=== PATIENT | male | born 1960 | race Caucasian/White ===

== ENCOUNTER 2017-01-30 17:56 | Emergency (ER) | payer OTHER ==
[~2017-01-30] VITALS: Ht 177.8 cm; Wt 81.6 kg
[~2017-01-30 17:56] MED LIST: ABILIFY5 M1 PO; DOXEPIN HCL50 MG PO; ESCITALOPRAM OX10 MG PO; HYDROXYZINE HCL50 M1 PO; HYDROXYZINE PAM50 M1 PO; MEDROL4 M2 PO; MIRTAZAPINE15 MG PO; NEXIUM 40MG40 MG PO; NICODERM C21 MG/24 H TOP; NICODERM C7 MG/24 HR TOP; NORCO 325 MG-51 TAB PO; PRILOSEC 20MG C20 MG PO; TRIAMCINOLONE A15 G4 TOP; ZOFRAN4 M1 PO; ZOFRAN4 MG PO
[2017-01-30 18:21] VITALS: BP 103/71
== END 2017-01-30 19:24 | disposition admitted as inpatient to this hospital (09) ==
LOC: ERH 17:56
DX: Z53.21 Procedure and treatment not carried out due to patient leaving prior to being seen by health care provider (principal)

== ENCOUNTER 2017-02-12 15:20 | Emergency (ER) | payer OTHER ==
[~2017-02-12] VITALS: Ht 177.8 cm; Wt 81.6 kg
[2017-02-12] MEDS ORDERED: NEXIUM40 M1 PO (15:24)
[2017-02-12] MEDS ORDERED: AMOXICILLIN500 M2 PO (15:25)
[2017-02-12] MEDS ORDERED: TAMSULOSIN HCL0.4 M1 PO (15:25)
[2017-02-12] MEDS ORDERED: CLARITHROMYCIN500 M1 PO (15:26)
[2017-02-12 16:19] LABS: ABSOLUTE BASOPHIL COUNT 0 /CUMM (0.0-0.2); ABSOLUTE EOSINOPHIL COUNT 0.1 /CUMM (0.0-0.7); ABSOLUTE GRANULOCYTE CT 3.9 /CUMM (1.4-6.5); ABSOLUTE LYMPH COUNT 2.1 /CUMM (1.2-3.4); ABSOLUTE MONOCYTE COUNT 0.5 /CUMM (0.10-0.60); BASOPHIL % 0.7 % (0.0-2.0); EOSINOPHIL % 1.9 % (0-5); GRANULOCYTE % 57.7 % (42.2-75.2); HEMATOCRIT 52.1 % (42-52); MEAN CORPUSCULAR HGB 34.9 PG (27.0-31.0); MEAN CORPUSCULAR HGB CONC 34.1 G/DL (33.0-37.0); MEAN CORPUSCULAR VOLUME 102.3 FL (80.0-94.0); MEAN PLATELET VOLUME 8.6 FL (7.4-10.4); PLATELET COUNT 158 /CUMM (130-400); RBC DISTRIBUTION WIDTH 13.6 % (11.5-14.5); RED BLOOD CELL CT 5.09 /CUMM (4.70-6.10); WHITE BLOOD CELL COUNT 6.8 /CUMM (4.8-10.8)
--- NOTE | 2017-02-12 16:41 | ED PSYCHIATRIC COMPLAINT ---
History of Present Illness General Chief Complaint: Psychiatric Related Complaint Stated Complaint: SI/?HI Source: patient Exam Limitations: no limitations Allergies Coded Allergies: NO KNOWN ALLERGIES (01/30/17) Reconcile Medications Amoxicillin 500 MG CAPSULE 2 CAP PO BID ANTIBIOTIC, INFECTION (Reported) Aripiprazole (Abilify) 5 MG TABLET 1 TAB PO DAILY MENTAL HEALTH (Reported) Clarithromycin 500 MG TABLET 1 TAB PO BID ANTIBIOTIC, INFECTION (Reported) Doxepin HCl 50 MG CAPSULE 1-2 CAP PO QPM PRN SLEEP (Reported) Escitalopram Oxalate 10 MG TABLET 1 TAB PO DAILY MENTAL HEALTH (Reported) Esomeprazole (Nexium) 40 MG CAPSULE.DR 1 CAP PO DAILY GI (Reported) Hydroxyzine Pamoate 50 MG CAPSULE 1 CAP PO BID ANXIETY (Reported) Tamsulosin HCl 0.4 MG CAP.ER.24H 1 CAP PO DAILY PROSTATE (Reported) Triage Note: PT BIBA FROM HOME FOR COMPLANTS OF DEPRESSION. PT STATED HE HAS BEEN OF DEPRESSION MEDS (LEXAPRO/ABILIFY) FOR APPROX 2-3 WEEKS. PT TEARFUL AND "REQUESTING HELP" FOR HIS "DEPRESSION AND ANGER". PT DENIED SI/HI. PT ADMITTED TO DRINKING FOUR BEERS AND TWO SHOTS OF ALCOHOL. DENIED ILLICIT DRUG USE. PT ALSO REQUESTED EVALUATION OF SCIATICA. SECURITY AT BEDSIDE FOR WANDING. PT CHANGED INTO PAPER SCRUBS. Triage Nurses Notes Reviewed? yes HPI: This patient is a 56-year-old male with a past medical history including alcohol dependence, pancreatitis, hepatitis C who presented to the emergency department today for evaluation of depression. The patient reported that he has a lot of medical problems and has been feeling very depressed and overwhelmed. He denied any suicidal ideation. He did report that he does sometimes think about taking his depression out on his . He reported, "not physically." The patient reported that he drinks approximately every other day. Today he had 4 beers and 2 shots. The patient denied any illicit drug use. He denied any chest pain, difficulty breathing, or fevers. He reported that he has withdrawn from alcohol before, but denied any withdrawal seizures. (HUGO TILLMAN,SAAD) Vital Signs & Intake/Output Vital Signs & Intake/Output Vital Signs Date Time Temp Pulse Resp B/P Pulse O2 O2 Flow FiO2 Ox Delivery Rate 02/12 2132 98.2 98 18 126/90 96 Room Air 02/12 1800 98.1 98 18 124/90 95 Room Air ED Intake and Output 02/13 0000 02/12 1200 Intake Total Output Total Balance Patient 180 lb Weight Past History Travel History Traveled to [place] past 21 day No Medical History Any Pertinent Medical History? 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 No (SAAD ARIAS PA-C) Review of Systems Review of Systems Constitutional: Reports: no symptoms. EENTM: Reports: no symptoms. Respiratory: Reports: no symptoms. Cardiovascular: Reports: no symptoms. GI: Reports: see HPI. Genitourinary: Reports: no symptoms. Musculoskeletal: Reports: no symptoms. Skin: Reports: no symptoms. Neurological/Psychological: Reports: see HPI. All Other Systems: Reviewed and Negative (SAAD ARIAS PA-C) Physical Exam Physical Exam General Appearance: well developed/nourished, no apparent distress, alert, awake Neurological/Psychiatric: no motor/sensory deficits, awake, alert, calm, shredded filler cigar maker machine II- XII nml as tested, depressed affect, oriented x 3 Comments: Well-developed well-nourished person in no acute distress HEENT: Normal EENT exam, normocephalic, moist mucous membranes Pupils equally round and reactive to light. Neck: Supple, no lymphadenopathy Back: Normal gait Cardiovascular: Regular rate and rhythm with no murmurs, rubs, or gallops Respiratory: No respiratory distress. Speaking in full sentences Extremity: Normal and equal pulses. Neuro: Alert oriented x3, cranial nerves II through XII grossly intact. Skin: No appreciable rash on exposed skin, skin is warm and dry. Psych: Mood and affect is depressed SAD PERSONS Done? patient not suicidal (SAAD ARIAS PA-C) Progress Differential Diagnosis: dementia, drug intoxication, drug overdose, drug withdrawal, electrolyte abnormality, encephalitis, alcohol intoxication, alcohol withdrawal, major depressive disorder, generalized anxiety disorder Plan of Care: Orders Procedure Date/time Status CIWA 02/12 1635 Active Continuous Observation Monitor 02/12 1535 Active URINE DRUGS OF ABUSE 02/12 1535 Complete ETHANOL 02/12 1535 Complete COMPREHENSIVE METABOLIC PANEL 02/12 153 Complete CBC WITHOUT DIFFERENTIAL 02/12 153 Complete Laboratory Tests 02/12/17 1611: Anion Gap 9, Estimated GFR > 60, BUN/Creatinine Ratio 7.8, Glucose 98, Calcium 9.9, Total Bilirubin 0.6, AST 95 H, ALT 97 H, Alkaline Phosphatase 61, Total Protein 8.2, Albumin 4.3, Globulin 3.9, Albumin/Globulin Ratio 1.1, CBC w Diff NO MAN DIFF REQ, RBC 5.09, MCV 102.3 H, MCH 34.9 H, RDW 13.6, MPV 8.6, Gran % 57.7, Lymphocytes % 31.8, Monocytes % 7.9, Eosinophils % 1.9, Basophils % 0.7, Absolute Granulocytes 3.9, Absolute Lymphocytes 2.1, Absolute Monocytes 0.5, Absolute Eosinophils 0.1, Absolute Basophils 0, PUBS MCHC 34.1, Serum Alcohol 185.0 02/12/17 1546: Urine Opiates Screen < 100.00, Methadone Screen 41, Barbiturate Screen < 60, Ur Phencyclidine Scrn < 6.00, Amphetamines Screen 107, U Benzodiazepines Scrn < 85, Urine Cocaine Screen < 50, Urine Cannabis Screen 38.90 Comments: 02/12/2017 9:12:11 PM: This patient is requesting to go home because he wants to go to this appointment with his specialist at [facility] tomorrow. He is stating that is he not suicidal. Patient breathalyzed and is under the legal limit. Patient is walking with a steady gait and is alert, oriented, and capable of making medical decisions. Crisis team memeber saw and evaluated this patient. Gave him resources to follow-up for his depression. (SAAD ARIAS PA-C) Departure Departure Disposition: HOME OR SELF CARE Condition: Stable Clinical Impression Primary Impression: Depressed Qualifiers: Depression Type: unspecified Qualified Code: F32.9 - Major depressive disorder, single episode, unspecified Referrals: ALFIE COSTA APRN (PCP/Family) Additional Instructions: Please follow-up with your previously scheduled appointment at [facility] tomorrow. Follow-up with the outpatient resources provided to you as needed. Return for any worsening symptoms or concerns. Departure Forms: Customer Survey General Discharge Information (SAAD ARIAS PA-C) PA/AERIAL TRAM OPERATOR Co-Sign Statement Statement: ED Attending supervision documentation- [] I saw and evaluated the patient. I have also reviewed all the pertinent lab results and diagnostic results. I agree with the findings and the plan of care as documented in the PA's/AERIAL TRAM OPERATOR's documentation. [X] I have reviewed the ED Record and agree with the PA's/AERIAL TRAM OPERATOR's documentation. [] Additions or exceptions (if any) to the PAs/AERIAL TRAM OPERATOR's note and plan are summarized below: [] (MOLLY CHRISTIANSON,GORGE) (MOLLY CHRISTIANSON,GORGE)
[2017-02-12 21:32] VITALS: BP 126/90
== END 2017-02-12 21:33 ==
LOC: ERH 15:20
PROVIDERS: Physician Assistant
DX: F32.9 Major depressive disorder, single episode, unspecified (principal); F10.10 Alcohol abuse, uncomplicated
CPT/HCPCS: 80307; G0480

== ENCOUNTER 2018-01-02 21:19 | Inpatient (IN) | payer OTHER ==
[~2018-01-02] VITALS: Ht 177.8 cm; Wt 74.8 kg
[~2018-01-02 21:19] MED LIST changes: +ABILIFY10 M1 PO; +AMOXICILLIN500 M2 PO; +ATIVAN0.5 M1 PO; +ATIVAN1 M1 PO; +CLARITHROMYCIN500 M1 PO; +FOLIC ACID1 M1 PO; +GABAPENTIN400 M2 PO; +NEXIUM40 M1 PO; +NICOTINE PATCH1 EAC3 TOP; +ONE DAILY MULT1 EAC2 PO; +PRAZOSIN HCL2 M1 PO; +SYNTHROID50 MCG PO; +TAMSULOSIN HCL0.4 M1 PO; +VITAMIN B-1100 MG PO
[2018-01-02 22:38] LABS: ABSOLUTE BASOPHIL COUNT 0.1 /CUMM (0.0-0.2); ABSOLUTE EOSINOPHIL COUNT 0 /CUMM (0.0-0.7); ABSOLUTE GRANULOCYTE CT 8.2 /CUMM (1.4-6.5); ABSOLUTE LYMPH COUNT 2.6 /CUMM (1.2-3.4); ABSOLUTE MONOCYTE COUNT 0.9 /CUMM (0.10-0.60); BASOPHIL % 1.2 % (0.0-2.0); EOSINOPHIL % 0.1 % (0-5); HEMATOCRIT 49.5 % (42-52); MEAN CORPUSCULAR HGB 33.4 PG (27.0-31.0); MEAN CORPUSCULAR VOLUME 98.3 FL (80.0-94.0); MEAN PLATELET VOLUME 8.7 FL (7.4-10.4); PLATELET COUNT 182 /CUMM (130-400); RBC DISTRIBUTION WIDTH 13.2 % (11.5-14.5); RED BLOOD CELL CT 5.04 /CUMM (4.70-6.10); WHITE BLOOD CELL COUNT 11.9 /CUMM (4.8-10.8)
[2018-01-02 22:39] LABS: GRANULOCYTE % 69.2 % (42.2-75.2)
--- NOTE | 2018-01-02 23:18 | ED PSYCHIATRIC COMPLAINT ---
See Addendum History of Present Illness General Chief Complaint: Psychiatric Related Complaint Stated Complaint: BIBA WITH A POSIVTIVE SI Source: patient Exam Limitations: no limitations Vital Signs & Intake/Output Vital Signs & Intake/Output Vital Signs Date Time Temp Pulse Resp B/P B/P Pulse O2 O2 Flow FiO2 Mean Ox Delivery Rate 01/05 2218 98.3 57 16 127/78 97 01/05 2200 98.3 57 16 127/78 01/05 1958 55 20 132/80 95 Room Air 01/05 1606 98.2 57 20 127/71 96 Room Air 01/05 0929 97.6 80 18 143/92 98 Room Air 01/05 0547 97.0 92 18 109/54 97 Room Air 01/05 0226 99.3 44 18 92/52 94 Room Air Allergies Coded Allergies: NO KNOWN ALLERGIES (01/30/17) Triage Note: SEE NURSES NOTES Triage Nurses Notes Reviewed? yes HPI: Patient presents for evaluation of suicide ideation. He states he just [facility] and he states he would have committed suicide in [facility] if possible. He states he is still suicidal and was found on his way to the train tracks. Patient admits to heavy alcohol use today but denies any associated drugs. He states that there has been a lot of "crazy stuff" going on. When notified of the abrasion of the nose patient states that he fell on his way to the train tracks. He denies loss of consciousness or other injury. (Sharri CHRISTIANSON,Greg Marshall) Reconcile Medications No Known Home Medications (Ian CHRISTIANSON,Brenda) Past History Travel History Traveled to [place] past 21 day No Medical History Any Pertinent Medical History? 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 No (Sharri CHRISTIANSON,Greg Marshall) Review of Systems Review of Systems Constitutional: Reports: no symptoms. EENTM: Reports: no symptoms. Respiratory: Reports: no symptoms. Cardiovascular: Reports: no symptoms. GI: Reports: no symptoms. Genitourinary: Reports: no symptoms. Musculoskeletal: Reports: no symptoms. Skin: Reports: no symptoms. Neurological/Psychological: Reports: see HPI. Hematologic/Endocrine: Reports: no symptoms. Immunologic/Allergic: Reports: no symptoms. All Other Systems: Reviewed and Negative (Sharri CHRISTIANSON,Greg Marshall) Physical Exam Physical Exam General Appearance: SEE BELOW Neurological/Psychiatric: SEE BELOW Comments: General: Alert, calm, cooperative, EtOH-like odor Head: Normocephalic, atraumatic Eyes: Normal inspection, no nystagmus, EOMI, no periorbital ecchymoses Ears: Normal inspection, no edwards sign Nose: Mild abrasion of the nasal bridge, no septal hematoma Throat: Moist mucosa Neck: Supple, no goiter Heart: Regular rate and rhythm, no murmurs rubs or gallops Lungs: Clear to auscultation bilaterally with good air entry Abdomen: Soft nontender nondistended, normal bowel sounds Chest: Nontender Extremities: Normal range of motion grossly, no tremors present, no cyanosis clubbing or edema of the upper extremities Neurologic: cranial nerves II through XII grossly intact, speech clear, gait normal Psychiatric: No apparent delusions or hallucinations, no pressured speech or thought blocking (Sharri CHRISTIANSON,Greg Marshall) SAD PERSONS SAD PERSONS Response Value Male Sex? yes 1 Age <19 or >45 years? yes 1 Depression/Hopelessness? yes 2 Previous Attempts/Psych Care yes 1 Excessive Ethanol/Drug Use? yes 1 Rational Thinking Loss? yes 2 Single//? yes 1 Social Support? has support 0 Stated Future Intent? yes 2 Total 11 SAD PERSONS Done? yes (Denise CHRISTIANSON,Bret) Progress Plan of Care: Orders Procedure Date/time Status Continuous Observation Monitor 01/05 0700 Active Current Medications Sig/Angel Start time Last Medication Dose Stop Time Status Admin Trazodone HCl 50 MG AT BEDTIME 01/04 2200 UNVr 01/05 (Desyrel) 2122 Hydroxyzine HCl 50 MG Q6P PRN 01/04 1945 AC 01/05 (Atarax) 2122 Lorazepam 1 MG Q6P PRN 01/04 1945 AC (Ativan) 7:12 PM 01/03/18 PATIENT SIGNED OUT TO ME BY DR BAUTISTA. PENDING CRISIS DISPOSITION. 7:10 AM 01/05/18 PATIENT SIGNED OUT TO ME BY DR KAUR. PENDING CRISIS EVALUATION/ DISPOSITION. (Brenda Sosa MD) (Greg Harrell MD) Hand-Off Endorsed To: Raj Gilliland MD Endorsed Time: 1899 Pending: consult (CRISIS INPATIENT BED SEARCH), other (CRISIS BED) (Brenda Sosa MD) Differential Diagnosis: drug intoxication, drug overdose, drug withdrawal, electrolyte abnormality, hypoglycemia Hand-Off Endorsed To: Malcolm Kaur MD Endorsed Time: 1899 Pending: other (psychiatric disposition) (Bret Bautista MD) Hand-Off Endorsed To: Bret Bautista MD Endorsed Time: 699 Pending: consult (Raj Gilliland MD) Departure Departure Condition: Stable Referrals: Ricky Palacios APRN (PCP/Family) Departure Forms: Customer Survey General Discharge Information (Greg Harrell MD) Departure Prescriptions: Current Visit Scripts No Known Home Medications (Brenda Sosa MD) Departure Disposition: STILL A PATIENT Clinical Impression Primary Impression: Depression with suicidal ideation Secondary Impressions: Alcohol intoxication (Bret Bautista MD) PA/RESEARCH ASSOCIATE PROFESSOR Co-Sign Statement Statement: ED Attending supervision documentation- [] I saw and evaluated the patient. I have also reviewed all the pertinent lab results and diagnostic results. I agree with the findings and the plan of care as documented in the PA's/RESEARCH ASSOCIATE PROFESSOR's documentation. [x] I have reviewed the ED Record and agree with the PA's/RESEARCH ASSOCIATE PROFESSOR's documentation. [] Additions or exceptions (if any) to the PAs/RESEARCH ASSOCIATE PROFESSOR's note and plan are summarized below: [] (Malcolm Kaur MD)
--- NOTE | 2018-01-03 11:38 | ED PSYCH CRISIS CONSULTATION ---
See Addendum Crisis Consult Basic Assessment Date of Consult: 01/03/18 Responsible Person/Accompanied By: self/biba/peer Insurance Authorization: Insurance #1: Insurance name: NIKO GALLEGO Phone number: Policy number: [id number] Group number: Authorization number: ED Provider: Patient's ED Provider: Sharri CHRISTIANSON,Greg Marshall Primary Care Physician: Patient's PCP: Ricky Palacios APRN PCP's Current Psychiatrist: none Chief Complaint: Psychiatric Related Complaint Patient's Quote: I'm going through a hard time; I can't take it Present Illness: Pt is a 57 yo male biba to [facility] ED last evening on a [employer] PEER for making statement he wanted to jump in front of a train to kill himself. Pt reports having 6 beers and some nips earlier in the day and his ED BAL was .245. Pt also reported to PD he wanted to trade his food stamps to buy heroin to overdose. Pt has a hx of herion abuse but current Urine Drug Screen was negative. Pt reports he had been incarcerated for 4.5 months for charges of domestic violence and was released on . Pt reports "I lost my old lady"; there is a protective order for no contact for 2 yrs and he is homeless. Pt reports his release stipulations are "undoable" and he is fearful he will quickly violate his orders and be sent back to group home. Pt states he has had past SI "but its serious this time. its so much I can't take it". Pt reports he was inpatient on [facility] in August 2017 but quickly after discharge began drinking again and stopped taking medications. He reports not following plan for outpatient tx at [facility]. Pt reports long hx of etoh abuse and after release Th began drinking again. Pt reports no current concerns regarding withdrawal. Past reports hx of heroin abuse but no recent use despite ideation of killing himself by heroin o/d. Pt denies HI. Pt presents as depressed, tearful, recent scrapes on nose, with blood shot eyes. Pt is OX3. Pt reports being hopeless and helpless and defeated. Case reviewed with Dr Argueta with recommendation for inpatient psychiatric treatment. Due to no current [facility] openings pt will be a bed search. Pt reports agreement with plan. Patient's Address: [address] [place] [address] Other Phone Number: Who Do You Live With? Other (see notes) (current homelessness) Family/Informants Interviewed: collateral provided by pt brother Efrain . He reports pt is severely depressed since release from group home and having no where to go. He reports pt has told him he is suicidal and Efrain thinks pt will act upon it if he doesn't get help. Allergies - Coded Allergies: NO KNOWN ALLERGIES (01/30/17) Current Medications - No Known Home Medications Laboratory Results: Laboratory Tests 01/02/18 2240: Urine Opiates Screen < 100.00, Methadone Screen < 40, Barbiturate Screen < 60, Ur Phencyclidine Scrn < 6.00, Amphetamines Screen 203, U Benzodiazepines Scrn < 85, Urine Cocaine Screen < 50, Urine Cannabis Screen < 5.00 01/02/18 2210: Anion Gap 21 H, Estimated GFR > 60, BUN/Creatinine Ratio 12.5, Glucose 111 H, Calcium 9.9, Total Bilirubin 1.0, AST 97 H, ALT 81 H, Alkaline Phosphatase 73, Total Protein 8.5 H, Albumin 4.9, Globulin 3.6, Albumin/Globulin Ratio 1.4, CBC w Diff NO MAN DIFF REQ, RBC 5.04, MCV 98.3 H, MCH 33.4 H, MCHC 34.0, RDW 13.2, MPV 8.7, Gran % 69.2, Lymphocytes % 21.6, Monocytes % 7.9, Eosinophils % 0.1, Basophils % 1.2, Absolute Granulocytes 8.2 H, Absolute Lymphocytes 2.6, Absolute Monocytes 0.9 H, Absolute Eosinophils 0, Absolute Basophils 0.1, Serum Alcohol 245.0 (Todd Burns LCSW) Addendum Addendum Met with patient for re-evaluation @ 19:00. Patient presented as alert, sad, depressed, oriented x3 with congruent mood and affect. Patient was tearful with blood shot eyes. Patient endorses ongoing SI stating "it comes and goes". Patient endorses hopeless/helpless. Patient reports depression of 10 "I am very depressed" and anxiety of 10 on a scale of 0 to 10, 10 being most severe. Patient denies HI, auditory and visual hallucinations. Patient reports normal appetite and "on and off" sleep. Patient advised a bed search is being conducted and he remains amenable to voluntary inpatient admission. (Sukhdeep MCDONALD,[place]) Addendum Addendum 01/04/18: Hospice Executive Director saw pt. at approx. 9:45 am. He reported that he was "sitting here thinking about how I could successfully do this (commit suicide)". When asked how, he stated "any way that's not painful". He agreed to staying in the ED with a bed search for a psych hospitalization because if he left "he was going to do something". He stated he did not feel he would do anything to attempt suicide in the ED. 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 Physical Limitations (Interventions): None known Psychiatric Treatment History Psych Treatment Psychiatric Treatment Yes Inpatient Treatment Yes Outpatient Treatment Yes Location of Treatment [facility] aug 2017; [facility] attended intake but didn't follow up Reason for Treatment depression; etoh Response to Treatment pt recently soon after [facility] discharge and stopped taking his medications Diagnosis by History: Depression Alcohol use d/o Opioid use d/o Substance Use/Abuse History Drug Use/Abuse Substances Used/Abused Yes Substance Used/Abused Alcohol Last Used yesterday How much used/taken 6 beers and a few nips How often daily Substance Abuse Treatment Substance Abuse Treatment Past Substance Abuse TX Yes Inpatient Treatment Yes Outpatient Treatment Yes Location of Treatment [facility] Reason for Treatment etoh and opiate use d/o Dates of Treatment 2013 Response to Treatment pt has difficulty maintaining sobriety. Pt reports immediate release following [facility] discharge in Aug 2017 and became intoxicate following release from group home this past Th following 4 month incarceration. Comments: pt has a long hx of etoh abuse. Pt reports hx of heroin abuse. Pt reports if he had the money he would buy enough heroin to o/d (Katy Todd UREÑA) Current Mental Status Mental Status Orientation: Person, Place, Situation Affect: Depressed Speech: WNL Neuro-vegetative: Appetite Decreased, Concentration Poor, Energy Decreased, Helpless, Loss of Interest, Sleep Disturbance Behaviors Thought Process: WNL Thought Content: WNL Memory: WNL Insight: Fair SI/HI Risk Assessment Past Suicidal Ideation/Attempts Yes Current Suicidal Ideation/Att Yes Past Homicidal Ideation/Att: No Current Homicidal Ideation/Attempts No Degree of Intent: States Intent Danger To: Self Gravely Disabled: Poor Impulse Control, Poor Judgment Risk Factors: chronic/serious med cond., high anxiety/distress, history of suicide atmpts, SA/MH hospitalized, substance abuse, poor impulse control, lives alone, male, limited support Lethality Ratin PTSD Checklist PTSD Done? patient declined ED Management Sitter: Yes Restraints: No (Todd Burns LCSW) DSM5/PS Stressors/Medical Prob Diagnosis' (DSM 5, Stressors, Medical): Unspecified Depression (F32.9) Alcohol Use severe (F10.20) Current GAF: 20 Comments: pt reports release th from 4 mos incarceration for dv towards . He reports current homelessness, protective orders and several stipulations that he thinks are undoable.. Pt expressed fear that he will violate probation and be sent back to group home. Pt reports he will kill himself instead of returning (Todd Burns LCSW) Departure Disposition Psych Medical Clearance Date: 01/03/18 Medically Cleared at: 0915 Time Started: 0915 Time Ended: 1000 Psychiatrist Consulted: Malcolm Gomez MD (Johnathan Argueta MD) Date Disposition Established: 01/03/18 Time Disposition Established: 1100 Plan for Disposition - Modality: Inpatient Psychiatry Rationale for Disposition: Pt required inpatient psychiatric admission for mood stabilization and to reassess for restarting psychotropic medications. Referrals Ricky Palacios APRN (PCP/Family) (Todd Burns LCSW)
--- NOTE | 2018-01-04 13:14 | ED PSYCHIATRIST/APRN CONSULT ---
Psychiatrist/ENGINE WIPER ED Consult Assessment and Plan: Pt seen as f/u. Pt notes he is continuing to struggle with thoughts of harm to self. Only feels safe because here in hospital. MSE General appearance: fair hygiene and grooming; Attitude: cooperative; Eye contact: appropriate; Movement: no psychomotor agitation or slowing; Speech: nl fluency, nl rate/rhythm, nl volume, nl prosody; Mood: "not good at all" Affect: irritable, flat, appropriate, constricted, non-labile, congruent; Thought process: linear and goal-directed; Thought content: active SI, no paranoid ideation; Perception: denied hallucinations- auditory, visual, does not appear to be responding to internal stimuli; I/J: limited A/P: Pt with worsening mood sx and SI in the setting of multiple psychosocial stressors. - Bed search underway
--- NOTE | 2018-01-05 17:18 | ED PSYCHIATRIST/APRN CONSULT ---
Psychiatrist/DRYING ROOM ATTENDANT ED Consult Assessment and Plan: Psychiatrist's Consult Date of Consult: 01/05/2018 Reason For Consult: Suicide Statements Background: 57-year-old male biba to [place] ED on a PEER for making statement he wanted to jump in front of a train to kill himself. Pt reports having 6 beers and some nips earlier in the day and his ED BAL was .245. Pt also reported to PD he wanted to trade his food stamps to buy heroin to overdose. Pt has a hx of herion abuse but current Urine Drug Screen was negative. Pt reports he had been incarcerated for 4.5 months for charges of domestic violence and was released on . Pt reports "I lost my old lady"; there is a protective order for no contact for 2 yrs and he is homeless. Mental State: Alert and oriented to time, place, and person. Having a meal in bed, agreeable to going inpatient psych. Acknowledged making statements about ending his life. Denied violent thoughts or thoughts of homicide. Denied hallucinations and did not have delusions or a thought disorder. Assessment: 57-year-old white male presenting with depressive symptoms and thoughts of suicide as well as alcohol use disorder. Likely Diagnoses: Unspecified Depressive Disorder Alcohol Use Disorder Hepatitis C; pancreatitis by history; hypothyroidism Recommendation: Inpatient Psych Admission CIWA with lorazepam coverage if there are withdrawal symptoms and/or signs
[2018-01-05 22:00] VITALS: BP 127/78
[2018-01-06] VITALS (9 sets, daily range): BP systolic 95–152; BP diastolic 52–90
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
--- NOTE | 2018-01-06 16:32 | History & Physical ---
General Information and HPI MD Statement: I have seen and personally examined OBNNIE BARAHONA and documented this H&P. The patient is a 57 year old M who presented with a patient stated chief complaint of SI Source of Information: patient Exam Limitations: no limitations History of Present Illness: 57 y/o M with pmh sig for Hep C, anxiety, depression, is admitted to [facility] with SI. Patient claims that he had done overdose of heroin before and this time he wanted to jump in front of a train to kill himself. Prior to this patient was incarcerated for few months. He is feeling depressed, anxious and c/o some headache as lots of thoughts are going through his head. His TFTs are also abnormal. Patient otherwise denies any complaints. he is also drinking ETOH. Allergies/Medications Allergies: Coded Allergies: NO KNOWN ALLERGIES (NONE 01/06/18) Home Med list No Known Home Medications Past History Travel History Traveled to [place] past 21 day No Medical History Neurological: NONE EENT: NONE Cardiovascular: NONE Respiratory: NONE Gastrointestinal: pancreatitis Hepatic: hepatitis C, ELEVATED LIVER ENZYMES Renal: NONE Musculoskeletal: NONE Psychiatric: anxiety, depression, insomnia, STRESS Endocrine: NONE Blood Disorders: NONE Cancer(s): NONE INSPECTOR POISING/Reproductive: NONE History of MRSA: No History of VRE: No History of CDIFF: No Isolation History: Standard Tetanus Vaccine: 07/05/17 Surgical History Surgical History: non-contributory Past Family/Social History Family History Relations & Conditions if any MOTHER FH: diabetes mellitus FHx: stroke FATHER FHx: stroke BROTHER FH: heart attack Psychosocial History Where do you live? Home Services at Home: None ETOH Use: occasional use Illicit Drug Use: denies illicit drug use Review of Systems Review of Systems Constitutional: Reports: see HPI. EENTM: Reports: see HPI. Cardiovascular: Reports: see HPI. Respiratory: Reports: see HPI. GI: Reports: see HPI. Musculoskeletal: Reports: see HPI. Skin: Reports: see HPI. Neurological/Psychological: Reports: see HPI. Exam & Diagnostic Data Last 24 Hrs of Vital Signs/I&O Vital Signs Date Time Temp Pulse Resp B/P B/P Pulse O2 O2 Flow FiO2 Mean Ox Delivery Rate 01/06 1615 77 140/80 01/06 1604 77 140/80 01/06 1305 88 122/72 01/06 1140 98.9 58 16 152/90 02/06 1138 98.9 58 16 152/90 99 Room Air 02/ 1003 97.6 52 18 123/76 98 Room Air 02/ 0910 97.8 64 20 110/56 02/06 0817 97.8 46 20 110/56 95 Room Air 02/06 0559 98.0 85 20 95/52 02/06 0530 98.0 65 20 94/52 96 02/05 2218 98.3 57 16 127/78 97 02/05 2200 98.3 57 16 127/78 02/05 1958 55 20 132/80 95 Room Air Intake & Output 01/06 1600 02/ 0800 02/ 0000 Intake Total Output Total Balance Patient 165 lb Weight Physical Exam General Appearance Alert, Oriented X3, Cooperative, No Acute Distress Skin Scrape randolph on the nose. HEENT PERRLA Neck Supple Cardiovascular Regular Rate, Normal S1, Normal S2 Lungs Clear to Auscultation Abdomen Normal Bowel Sounds, Soft, No Tenderness Neurological Cranial Nerves II through XII: Intact Last 24 Hrs of Labs/Darnell: Laboratory Tests 01/06/18 1426: TSH Cancelled, Free T4 Cancelled, Thyroxine (T4) Cancelled Laboratory Tests 01/06 1426 Chemistry TSH Cancelled Free T4 Cancelled Thyroxine (T4) Cancelled Assessment/Plan Assessment: 57-year-old male with past history significant for hepatitis C, depression, anxiety, alcohol use admitted to Inpatient Psychiatry suicidal ideation. Patient has attempted to jump in front of the train as well as doing heroine overdose. He has abnormal thyroid function. Recommend endocrinology consult. Patient currently on Ativan and thiamine. We leave the rest of the psych management up to psychiatry. I will order endocrinology consult. As Ranked By This Provider Problem List: 1. Chronic hepatitis C 2. Depression 3. Alcohol abuse 4. Alcoholism 5. Abnormal thyroid blood test Miscellaneous Miscellaneous Documentation Attending Case Discussed With: Sera Carrasco MD Primary Care Physician: Ricky Palacios APRN Patient sees these Specialists none Level of Patient Care: [facility]
--- NOTE | 2018-01-06 22:19 | Cons- Endocrinology ---
General Information and HPI Consulting Request Date of Consult: 01/06/18 Requested By: SALVAD[facility] NGUYEN Reason for Consult: evaluation of abnormal TFT. Source of Information: patient, old records Exam Limitations: no limitations History of Present Illness: 57 y/o M with PMH significant for Hepatitis C,ETOH abuse and drug abuse, anxiety, depression, was admitted to [facility] with SI. Patient claims that he had done overdose of heroin before and this time he wanted to jump in front of a train to kill himself. Blood work showed TSH 2.83, free T4 1.06 and TT4 14.6. I was asked to see him for evaluation of abnormal TFT. He denied having any hx of thyroid disorder. His grandmother had thyroid condition. Allergies/Medications Allergies: Coded Allergies: NO KNOWN ALLERGIES (NONE 01/06/18) Home Med List: No Known Home Medications Review of Systems Review of Systems Constitutional: Reports: see HPI. Cardiovascular: Denies: chest pain. Respiratory: Denies: short of breath. GI: Denies: abdominal pain. Neurological/Psychological: Reports: depressed. Hematologic/Endocrine: Denies: polyuria, polydipsia. Past History Travel History Traveled to [place] past 21 day No Medical History Neurological: NONE EENT: NONE Cardiovascular: NONE Respiratory: NONE Gastrointestinal: pancreatitis Hepatic: hepatitis C, ELEVATED LIVER ENZYMES Renal: NONE Musculoskeletal: NONE Psychiatric: anxiety, depression, insomnia, STRESS Endocrine: NONE Blood Disorders: NONE Cancer(s): NONE NUCLEAR PHYSICIST/Reproductive: NONE Surgical History Surgical History: non-contributory Family History Relations & Conditions If Any: MOTHER FH: diabetes mellitus FHx: stroke FATHER FHx: stroke BROTHER FH: heart attack Psychosocial History Where Do You Live? Home Services at Home: None ETOH Use: occasional use Illicit Drug Use: denies illicit drug use Exam & Diagnostic Data Last 24 Hrs of Vital Signs/I&O Vital Signs Date Time Temp Pulse Resp B/P B/P Pulse O2 O2 Flow FiO2 Mean Ox Delivery Rate 01/06 2008 97.4 72 120/75 01/06 2007 97.4 72 120/75 01/06 1615 77 140/80 01/06 1604 77 140/80 01/06 1305 88 122/72 01/06 1140 98.9 58 16 152/90 01/06 1138 98.9 58 16 152/90 99 Room Air 01/06 1003 97.6 52 18 123/76 98 Room Air 02/ 0910 97.8 64 20 110/56 02/ 0817 97.8 46 20 110/56 95 Room Air 02/ 0559 98.0 85 20 95/52 02/06 0530 98.0 65 20 94/52 96 /05 2218 98.3 57 16 127/78 97 Intake & Output / 1600 02/ 0800 02/ 0000 Intake Total Output Total Balance Patient 165 lb Weight Physical Exam General Appearance: no apparent distress Neck: no significant thyromegaly Respiratory: lungs clear Cardiovascular: tachycardia Gastrointestinal: soft Extremities: no edema Labs/Darnell Results: Laboratory Tests 01/06 1426 Chemistry TSH Cancelled Free T4 Cancelled Thyroxine (T4) Cancelled Assessment/Plan Assessment/Plan 57 y/o M with PMH significant for Hepatitis C,ETOH abuse and drug abuse, anxiety, depression, was admitted to [facility] with SI. Patient claims that he had done overdose of heroin before and this time he wanted to jump in front of a train to kill himself. Blood work showed TSH 2.83, free T4 1.06 and TT4 14.6. He has normal TSH and free T4 which suggests that his thyroid function is in the normal range; the elevated TT4 could be due to the elevated TBG related to his liver disease-- hepatitis C and ETOH abuse. However, in 08/2017, his TSH was 9.45 , TT3 1.94 and free T40.75; anti TPO was < 28 and anti Tg 18. I will recommend repeating TFT and ing thyroid antibody panel just to make sure. will follow. Consult Acknowledgment - Thank you for your consult request.
[2018-01-07] VITALS (8 sets, daily range): BP systolic 114–148; BP diastolic 75–83
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
[2018-01-08] VITALS (8 sets, daily range): BP systolic 122–140; BP diastolic 80–97
--- NOTE | 2018-01-08 08:41 | SOCIAL WORKER PROG NOTE PSYCH ---
Social Work Progress Note Progress Note Called [employer] and left a message about setting up a screening. Miguelito has a screening at 2:45pm today with [facility] in [place]. Met with Miguelito this morning. He reported he had a horrible night due to not sleeping well. He said he woke up several times. He said he was having negative thoughts. Shared that he was having thoughts about hurting his ex- fiance. He said he would never do that. Doesn't understand what happened and doesn't really remember. Reports feeling in a fog today, with mood being up and down at times. He said he is trying to focus on the positive. Signed a release for his Brother Sherie [phone]. He is open to him coming in, but doesn't think he will. He also signed a release for the CCT. Reminded him of his screening at 2:45 today with [facility]. Alyce Cedeño and Renee from [facility] came to see Miguelito to screen him for their program. We spoke after their meeting. They have concerns right now related to his mental health. They don't feel he is quite ready for discharge due to still having SI. They will keep him on the list and check in next week. Miguelito talked with me briefly before calling Tg at [facility]. He stated he didn' t think he really needed a rehab and just needed help with his mental health and housing. I told him I thought he should complete the screening because he does have a hx of use and he was drinking. He needs the help and that would be a place to buy him more time to work on his symptoms and housing issue. He called and completed the screening. Called Miguelito's Brother Man [phone]. He really didn't appear to be engaged in our conversation. Stated that he did not have a car and would not be able to get in to see Miguelito. Stated he is trying to figure out how to get his clothes here from his friend Chintan's house. I told him what we were working on as a discharge plan. I asked if there was family or friends for housing options? He said no. He will keep in contact with Miguelito.
--- NOTE | 2018-01-08 10:05 | PN- Endocrinology ---
Assessment/Plan Assessment: 57 y/o M with PMH significant for Hepatitis C,ETOH abuse and drug abuse, anxiety, depression, was admitted to [facility] with SI. Patient claims that he had done overdose of heroin before and this time he wanted to jump in front of a train to kill himself. Blood work showed TSH 2.83, free T4 1.06 and TT4 14.6. He has normal TSH and free T4 which suggests that his thyroid function is in the normal range; the elevated TT4 could be due to the elevated TBG related to his liver disease-- hepatitis C and ETOH abuse. However, in 08/2017, his TSH was 9.45 , TT3 1.94 and free T40.75; anti TPO was < 28 and anti Tg 18. On 01/07/2018, Repeat TSH 8.910, free T4 0.86 and TT3 2.25; anti TPO 17 and anti Tg 33. Plan: 1. start Levothyroxine 50 mcg daily; 2. repeat TFT in 6-8 weeks; 3. f/u in office after discharge and will order thyroid u.s as outpatient. Subjective Subjective: He still feels confused intermittently. Objective Last 24 Hrs of Vital Signs/I&O Vital Signs Date Time Temp Pulse Resp B/P B/P Pulse O2 O2 Flow FiO2 Mean Ox Delivery Rate 01/08 0753 98.0 83 135/80 01/08 0749 98.0 83 135/80 01/07 1949 98.1 97 131/76 01/07 1946 98.1 97 131/76 01/07 1602 78 132/75 01/07 1556 78 132/75 01/07 1229 74 148/83 01/07 1203 74 148/83 Results Pertinent Lab/Darnell Results: Laboratory Tests 01/07 01/06 0640 1426 Chemistry TSH (0.270 - 4.200 uIU/mL) 8.910 H Cancelled Free T4 (0.64 - 1.79 ng/dL) 0.86 Cancelled Thyroxine (T4) Cancelled Total T3 (0.97 - 1.69 ng/mL) 2.25 H Immunology Thyroglobulin Antibody (< 61 U/mL) 17 Thyroid Peroxidase Ab (< 61 U/mL) 33
--- NOTE | 2018-01-08 15:30 | CP SOUTH PROGRESS NOTE PSYCH ---
Psych (Inpt) Progress Note Progress Note Include the following elements, when applicable: Involvement in the active treatment of the patient with behavioral observations of the patient and the patient's response to the treatment. Review of the ongoing treatment process in the context of the treatment plan. Indication of how multi-disciplinary staff members are carrying out the treatment plan. Plans for future interventions and recommendations for revision of the treatment plan. Liaison with other physicians/providers. Progress Note: Case and treatment plan discussed in team meeting. Staff reports that the patient is feeling very depressed. Denying plans to harm himself. Described as anxious. Patient will have a screening for [facility]. Dr. Evans started the patient on levothyroxine 50 mcg daily. Patient seen at 10:16 AM. He was in group prior to meeting with me in office. Reports he is tired and he did not sleep last night despite trazodone. Reports he just couldn't sleep and he reports he does not know what is wrong. He indicates he had racing thoughts about wanting to leave and not wanting help. Tolerating Abilify. Reports mood is "okay, going through some swings, nothing bad, it's like fog." Rates sad mood and anxiety both 5/10. Denies feeling hopeless, helpless or worthless. Does feel guilty. Denies active and passive suicidal ideation. Denies homicidal ideation. Reports he heard voices last night around 7 PM, "you could leave, hurt yourself." Denies visual hallucinations and paranoid ideation. Reports appetite is good. Energy is none. Patient would like Abilify dose increased to 10 mg daily. I made this change, including a makeup dose of 5 mg today at 2 PM. IMPRESSION: Slow progress. Continue present treatment plan. Continues to require inpatient level of care. We are looking into rehab placements.
[2018-01-09] VITALS (8 sets, daily range): BP systolic 120–143; BP diastolic 70–96
--- NOTE | 2018-01-09 07:45 | CP SOUTH PROGRESS NOTE PSYCH ---
Psych (Inpt) Progress Note Progress Note Vital Signs: Temp. 96.5, Pulse: 66/min; BP: 120/85mmHg Mental Status Examination Miguelito reported restless sleep, he reported that Trazodone made him very stuffed up in the nose, breathing through mouth and felt hung over in AM. Miguelito was calm, polite and cooperative. There is no psychomotor agitation or retardation. Normal speech, mood is depressed, despondent. Rates anxiety 7/10. somewhat hopeless, denied suicidal ideation, denies homicidal ideation. Denied hallucinations, reports his mind races when he is anxious. Denies paranoid ideation and magical philippe. He was coherent, thinking is clear, logical and goal-directed. He was alert and oriented 3, grossly intact memory Impression: A 56-year-old single white male who was admitted on 01/06/18 for suicidal ideation. He--reportedly--wanted to jump in front of a train to kill himself or wanted to buy heroin to overdose. Reports that in December, while still in prison, he started to plan out a suicide attempt, to overdose. Likely Diagnoses: Major depression, recurrent, severe. Alcohol use disorder. Hepatitis C. History of pancreatitis. Hypothyroidism. Treatment Plan update: D/C Trazodone Increase bedtime Gabapentin to 900 mg Continue Abilify 10mg daily Monitor on the unit for safety, alcohol withdrawal and mood disorder. Psychiatrist will evlauate patient daily for mental status exam amd medication monitoring/management Anticipate once clinically stable, that the patient will be referred to an inpatient rehab. inpatient rehab. Depressed at 10/10. Rates anxiety 7/10. Feels hopeless, helpless, worthless and guilty. Suicidal Ideation: Reports suicidal ideation. Gives a safety promise for here. Homicidal Ideation: Denies homicidal ideation. Hallucinations: Reports command auditory hallucinations, more than 1 voice, inside his head, male. Reports his mind races when he is anxious. Denies visual hallucinations. Paranoid/Delusional Material: Denies paranoid ideation and magical philippe. Difficulties with thought organization: Thinking is clear, logical and goal-directed. Insight: Limited. Judgment: Poor. Orientation: Oriented 3. Cognition: Grossly intact. Memory Function: Grossly intact. Estimate of intellectual functioning: Average. Assets/Strengths Patient Identified Assets/Strengths: Not asked. Impression/Plan Impression and Plan: The patient is here with suicidal ideation and marked depression in the context of relapse with alcohol, being homeless, having minimal supports, being unemployed, and having been recently released from prison. - Include all active medical diagnosis that require tx DSM 5 Diagnosis(es): Major depression, recurrent, severe. Alcohol use disorder. Hepatitis C. History of pancreatitis. Hypothyroidism. - Initial Tx Plan for Active Psych & Medical Conditions Treatment Plan: The patient will be monitored on the unit for safety, alcohol withdrawal and mood disorder. Patient was treated in the past with Abilify and Lexapro. At this point, we will restart Abilify at 5 mg daily to address auditory hallucinations. Once hallucinations remit, we will consider addition of Lexapro for depression. Additional information is needed from brother. Anticipate once clinically stable, that the patient will be referred to an inpatient rehab. 01/03 1710 98.8 62 20 111/72 95 / 1459 99.0 82 18 107/66 100 Room Air 01/03 0625 98.7 79 18 98/61 95 Room Air 01/03 0114 97.8 78 20 97/62 99 Room Air 01/02 2145 96.0 91 18 120/81 97 Room Air Orders Procedure Date/time Status SUB HSP (15 MIN) 01/08 UNK Complete Change service to 01/08 UNK Active THYROID STIMULATING HORMONE 01/07 0600 Complete TOTAL TRIODOTHYROXINE 01/07 0600 Complete FREE T4 01/07 0600 Complete THYROID ANTIBODY PANEL 01/07 0600 Complete INIT HSP (30 MIN) 01/07 UNK Complete CIWA 01/07 UNK Active MISSING MEDICATION FORM 01/07 UNK Active EKG 01/07 UNK Active Regular Diet 01/06 D Active Patient Data - inpatient psych 01/06 1426 Active Admit to inpatient psych 01/06 1426 Active Vital Signs 01/06 1249 Active Inpt Psych Teach/Educate 01/06 1249 Active Nutritional Intake, Monitor 01/06 1249 Active Inpt Psych Auricular Acupunctu 01/06 1249 Active Admit to inpatient psych 01/06 1019 Active Activity/Ambulation 01/06 UNK Active PHYSICIAN CONSULT 01/06 UNK Active CIWA 01/05 2200 Complete THYROID STIMULATING HORMONE 01/02 221 Complete THYROXINE 01/02 221 Complete FREE T4 01/02 2210 Complete Intake & Output 01/02 2144 Complete
--- NOTE | 2018-01-09 10:20 | SOCIAL WORKER PROG NOTE PSYCH ---
Social Work Progress Note Progress Note Met with Miguelito this morning. Asked how his screening went with [facility] yesterday? He stated he thought it went well and that she told him that his referral will be reviewed with the team. We talked about his interaction with the managers from the [facility] and how they feel he needs to stablize further here, before coming to their program. He said that they did share that with him. He is looking forward to the possiblity of going to [facility] and then transferring to a longer term program from there. He said he had a good day yesterday. Thoughts are less negative. Reports a nightmare last night about entry level installation technician chasing him and him ending up in a psych ortega. Attending groups. Asked for the number to Social Security which was given to him. Spoke with Tg from [facility] about Miguelito's screening. She said her only issue with him is that [facility] may not authorize due to the length of time he has been drinking, having been recently discharged from incarceration. Made an argument that he is at risk without inpatient tx at this time due to his hx. She will speak with [facility] and let us know the outcome.
--- NOTE | 2018-01-09 15:28 | SOCIAL WORKER PROG NOTE PSYCH ---
Social Work Progress Note Progress Note Patient asked for assistance in getting a Release of Information to [facility] in [place]. Assisted the patient in completing the release and faxed to [facility] gave patient a copy and retained one for social work.
[2018-01-10 07:50] VITALS: BP 133/84
[2018-01-10 08:09] VITALS: BP 133/84
--- NOTE | 2018-01-10 09:06 | CP SOUTH PROGRESS NOTE PSYCH ---
Psych (Inpt) Progress Note Progress Note Include the following elements, when applicable: Involvement in the active treatment of the patient with behavioral observations of the patient and the patient's response to the treatment. Review of the ongoing treatment process in the context of the treatment plan. Indication of how multi-disciplinary staff members are carrying out the treatment plan. Plans for future interventions and recommendations for revision of the treatment plan. Liaison with other physicians/providers. Progress Note: SUBJECTIVE: Patient reports that he just had an upsetting phone call with his brother, that his belongings are no longer in his roommate's house. Patient states "I will get over it." States that his mood has been "excellent" all day today until that phone call. Patient states yesterday was a rough day, with low mood, but is much better today. Denies any signs or symptoms of withdrawal. Tolerating medication increase. Denies any side effects to medicines or abnormal movements. Continues to have vague SI intermittently, no HI/AVH/SIB. States he is eating very well. No pain. Reviewed medications and answered patient's questions. OBJECTIVE: Per nursing, pt did well overnight without any acute events. Pt remained in behavioral control, adherent with staff instructions and medications. CIWAs have been 0 for last 2 days, discontinued. Current Medications Sig/Angel Start time Last Medication Dose Route Stop Time Status Admin Acetaminophen 650 MG Q6P PRN 01/07 1500 AC 01/08 PO 1531 Al Hydroxide/Mg 30 ML Q4-6 PRN PRN 01/07 1500 AC Hydroxide PO Aripiprazole 10 MG DAILY 01/09 1000 AC 01/10 PO 0742 Benztropine Mesylate 1 MG Q6P PRN 01/07 1500 AC PO Benztropine Mesylate 1 MG Q6P PRN 01/07 1500 AC IM Gabapentin 900 MG AT BEDTIME 01/09 2200 AC 01/09 PO 2208 Gabapentin 300 MG Q4P PRN 01/08 1230 AC 01/10 PO 0743 Haloperidol 5 MG Q6P PRN 01/07 1500 AC PO Haloperidol 5 MG Q6P PRN 01/07 1500 AC IM Levothyroxine Sodium 0.05 MG DAILY AC 01/08 0803 AC 01/10 PO 0611 Lorazepam 2 MG Q6P PRN 01/07 1500 AC IM Lorazepam 1 MG Q1P PRN 01/06 1430 AC PO Lorazepam 2 MG Q1P PRN 01/06 1430 AC PO Magnesium Hydroxide 30 ML AT BEDTIME PRN 01/07 1500 AC PO Multivitamins 1 TAB DAILY 01/06 1432 AC 01/10 PO 0742 Nicotine 2 MG Q2P PRN 01/07 1515 AC PO Vital Signs Date Time Temp Pulse Resp B/P B/P Pulse O2 O2 Flow FiO2 Mean Ox Delivery Rate 01/10 809 97.7 76 133/84 01/10 0750 97.7 76 133/84 01/09 2003 98.2 93 133/90 01/09 2000 98.2 93 133/90 01/09 1550 93 141/96 01/09 1536 93 141/96 01/09 1233 79 143/70 01/09 1219 143/90 MSE: GENERAL: Alert and oriented x3, good eye contact, well-groomed, no apparent distress SPEECH: Moderate rate and volume, normal prosody, fluent MOTOR: No tics, tremors, stereotypy, or abnormal movements MOOD: "Excellent, except for the last 10 minutes." AFFECT: Calm, mood congruent, good range, non-labile, well related THOUGHT PROCESS: Logical, linear and goal-directed THOUGHT CONTENT: No SI/HI/AVH/SIB, no apparent grandiosity, paranoia, delusions , obsessions, ruminations COGNITION: No apparent deficit in attention, memory or concentration JUDGMENT: fair INSIGHT: fair ASSESSMENT: A 56-year-old single white male who was admitted on 01/06/18 for suicidal ideation. He--reportedly--wanted to jump in front of a train to kill himself or wanted to buy heroin to overdose. Reports that in December, while still in detention, he started to plan out a suicide attempt, to overdose. Today, patient continues to have intermittent vague SI although feels mood is much improved today over yesterday. Tolerating medication adjustments, continue plan. Likely Diagnoses: Major depression, recurrent, severe. Alcohol use disorder. Hepatitis C. History of pancreatitis. Hypothyroidism. PLAN: -maintain safety, vs tid, q15min checks -continue meds, tolerating increase in gabapentin -d/c CIWA -Psychoeducation provided regarding thyroid and depression -continue plan
[2018-01-10 11:50] VITALS: BP 121/81
[2018-01-10 15:48] VITALS: BP 136/76
[2018-01-10 19:48] VITALS: BP 117/72
--- NOTE | 2018-01-11 00:05 | CP SOUTH PROGRESS NOTE PSYCH ---
Psych (Inpt) Progress Note Progress Note Progress Note: SUBJECTIVE: Patient having a difficult today. Patient shared with ticket writer that one of the other peers on the unit looks a lot like his brother who 2 years ago. Patient has filed found this to be triggering for jumpiness, anxiety, nervousness. Patient also states he is having difficulty sleeping. Requested having his Abilify dose split to 5 mg a.m. and p.m. to manage voices through the night. Patient tearful on interview. Patient denies active SI, definitely having a low day today. Patient also concerned because his father and 2 brothers at 57 years old and patient is currently 57. No HI/AVH/SIB. Denies any signs or symptoms of withdrawal, no cravings. Denies any side effects to medicines or abnormal movements. Eating OK. No pain. Supportive therapy provided. OBJECTIVE: Per nursing, pt did well overnight without any acute events. Pt remained in behavioral control, adherent with staff instructions and medications. VSS. Current Medications Sig/Angel Start time Last Medication Dose Route Stop Time Status Admin Acetaminophen 650 MG .STK-MED ONE 01/10 1202 DC PO 01/10 1203 Acetaminophen 650 MG Q6P PRN 01/07 1500 AC 01/10 PO 1202 Al Hydroxide/Mg 30 ML Q4-6 PRN PRN 01/07 1500 AC Hydroxide PO Aripiprazole 10 MG DAILY 01/09 1000 AC 01/11 PO 0805 Benztropine Mesylate 1 MG Q6P PRN 01/07 1500 AC PO Benztropine Mesylate 1 MG Q6P PRN 01/07 1500 AC IM Gabapentin 900 MG AT BEDTIME 01/09 2200 AC 01/10 PO 2210 Gabapentin 300 MG Q4P PRN 01/08 1230 AC 01/11 PO 0805 Haloperidol 5 MG Q6P PRN 01/07 1500 AC PO Haloperidol 5 MG Q6P PRN 01/07 1500 AC IM Levothyroxine Sodium 0.05 MG DAILY AC 01/08 0803 AC 01/11 PO 0605 Lorazepam 2 MG Q6P PRN 01/07 1500 AC IM Lorazepam 1 MG Q1P PRN 01/06 1430 AC PO Lorazepam 2 MG Q1P PRN 01/06 1430 AC PO Magnesium Hydroxide 30 ML AT BEDTIME PRN 01/07 1500 AC PO Multivitamins 1 TAB DAILY 01/06 1432 AC 01/11 PO 0805 Nicotine 2 MG Q2P PRN 01/07 1515 AC PO Vital Signs Date Time Temp Pulse Resp B/P B/P Pulse O2 O2 Flow FiO2 Mean Ox Delivery Rate 01/11 0740 97.4 69 124/79 01/10 1948 98.4 83 117/72 01/10 1548 89 136/76 01/10 1150 78 121/81 MSE: GENERAL: Alert and oriented x3, good eye contact, well-groomed, tearful at appropriate times and interview discussing his brother. SPEECH: Moderate rate and soft volume, normal prosody, fluent MOTOR: No tics, tremors, stereotypy, or abnormal movements MOOD: "Nervous and jumpy today." AFFECT: low, mood congruent, mildly constricted range, non-labile, well related THOUGHT PROCESS: Logical, linear and goal-directed THOUGHT CONTENT: No SI/HI/AVH/SIB, no apparent grandiosity, paranoia, delusion, but thinking a great deal about his brother that he lost 2 years ago since one of the unit peers looks a lot like his brother. COGNITION: No apparent deficit in attention, memory or concentration JUDGMENT: fair INSIGHT: fair ASSESSMENT: A 56-year-old single white male who was admitted on 01/06/18 for suicidal ideation. He--reportedly--wanted to jump in front of a train to kill himself or wanted to buy heroin to overdose. Reports that in December, while still in penitentiary, he started to plan out a suicide attempt, to overdose. Today, patient is quite dysphoric and anxious with intrusive memories of his brother. Likely Diagnoses: Major depression, recurrent, severe. Alcohol use disorder. Hepatitis C. History of pancreatitis. Hypothyroidism. PLAN: -maintain safety, vs tid, q15min checks -continue meds, tolerating increase in gabapentin -CIWA d/c'ed on Sat -change abililfy 10 mg qam to 5 mg BID to cover nighttime AVH -start atarax 25 mg po q6h prn anxiety -continue plan
[2018-01-11 07:40] VITALS: BP 124/79
[2018-01-11 12:14] VITALS: BP 142/92
[2018-01-11 15:46] VITALS: BP 125/82
[2018-01-11 20:09] VITALS: BP 145/91
[2018-01-12 07:39] VITALS: BP 123/79
--- NOTE | 2018-01-12 09:07 | SOCIAL WORKER PROG NOTE PSYCH ---
Social Work Progress Note Progress Note Miguelito reports that he had an up and down weekend. Friday mood was more down and depressed, but yesterday was better. He has been focused on applying for Social Security and has a phone screening today at 2:30pm. He has been trying to obtain past psychiatric records from [facility] and [facility]. Shared that he continues to have some on and off SI, but states it is managable and he feels safe here. He told me that his ex-fiance called the nursing station number a couple of times over the weekend. He thinks she was probably drunk. I reminded him that due to the restraining order he cannot accept any calls from her even if she initiates them as he could be seen as violating the protective order. Had a phone screening with [employer] today. Not sure the outcome of the call at this time. Has a screening with [employer]. tomorrow at 11am.
[2018-01-12 12:11] VITALS: BP 150/95
--- NOTE | 2018-01-12 14:51 | CP SOUTH PROGRESS NOTE PSYCH ---
Psych (Inpt) Progress Note Progress Note Include the following elements, when applicable: Involvement in the active treatment of the patient with behavioral observations of the patient and the patient's response to the treatment. Review of the ongoing treatment process in the context of the treatment plan. Indication of how multi-disciplinary staff members are carrying out the treatment plan. Plans for future interventions and recommendations for revision of the treatment plan. Liaison with other physicians/providers. Progress Note: Dr. Wise's and Dr. Lindsey's notes reviewed. Case and treatment plan discussed in team meeting. Staff reports that the patient is denying suicidal ideation. reportedly called last evening and by report was intoxicated. Patient ignored the calls. Staff reports patient has intermittent suicidal ideation. He is being [facility] Patient is trying to get on Social Security disability. He had a screening with [facility]. Patient seen at 10:51 AM. He was in group prior to meeting with me in office. States he is so-so today. Feeling pretty good. Reports he is having ups and downs. States that he gets jitters and flinches when people walk by, behind his back. Finds hydroxyzine helpful. Reports working on getting on Social Security. Rates anxiety 7-8/10 with racing and jittering. Rates sad mood 4-5/ 10. Denies feeling hopeless now but did feel this way over the weekend. Denies feeling helpless or worthless. Reports he always feels guilty. Denies active and passive suicidal ideation. Denies homicidal ideation. Reports command auditory hallucinations that tell him to hurt himself, to take off from here and tell him that no one cares. Voices are 2+ in number and are inside his head. They are more evident to him when it is quiet. Reports visual hallucinations of a picture, a black face, shadows. Denies paranoid ideation. Describes sleep is so-so, appetite is good and energy is so-so. Tolerating medications well, without complaint. IMPRESSION: Slow progress. Continue present treatment plan. Placement remains problematic. Monitor response to Abilify 5 mg twice daily, gabapentin 900 mg nightly, prn hydroxyzine and prn gabapentin.
[2018-01-12 16:29] VITALS: BP 139/89
--- NOTE | 2018-01-12 17:03 | SOCIAL WORKER PROG NOTE PSYCH ---
Social Work Progress Note Progress Note COMPLETE P REVIEW.
[2018-01-12 20:01] VITALS: BP 140/90
[2018-01-13 07:26] VITALS: BP 125/99
[2018-01-13 12:08] VITALS: BP 142/79
--- NOTE | 2018-01-13 12:34 | SOCIAL WORKER PROG NOTE PSYCH ---
Social Work Progress Note Progress Note Pt completed the screening intake for [facility] he was not clear on a plan for his [id number] but states they took all the information. Jaya is having their MD read the EKG results, there is an abnormality, they are still interested, [facility] needs to be called to confirmthis level is appropriate for the pt. Pt denies si/hi/ah/vh, and feels he would be ready for crisis and resp[facility] if that were an option, "in a few days", I asked him if he would feel ready by Friday and he agreed.
--- NOTE | 2018-01-13 13:12 | CP SOUTH PROGRESS NOTE PSYCH ---
Psych (Inpt) Progress Note Progress Note Include the following elements, when applicable: Involvement in the active treatment of the patient with behavioral observations of the patient and the patient's response to the treatment. Review of the ongoing treatment process in the context of the treatment plan. Indication of how multi-disciplinary staff members are carrying out the treatment plan. Plans for future interventions and recommendations for revision of the treatment plan. Liaison with other physicians/providers. Progress Note: Case and treatment plan discussed in team meeting. Staff reports that the patient is denying suicidal ideation. Patient seen at 10:44 AM. He reports he is doing well. Affect is calm and euthymic. Reports for the past couple days, he has been feeling happy and full of energy. Patient anticipates making a phone call in about 10 minutes with [facility] in [place]. Rates sad mood 2-3/10. He felt a bit down because a peer on the unit reminded patient of patient's brother and patient had a flashback, but he reports he got over it pretty quickly. Rates anxiety 5/10 due to uncertainty around several plans. Denies feeling hopeless, helpless or worthless. Reports he always feels guilty. Denies suicidal and homicidal ideation. Reports voices persist but are significantly reduced, now down to just once or twice a day, in the middle of the night. Reports he had visual hallucinations yesterday of bugs but none now. Denies paranoid ideation. Reports he slept 4-5 hours. Appetite is good. Reports he is full of energy. Tolerating current medications well. Agrees to increase Abilify dose to 5 mg every morning and 10 mg nightly. IMPRESSION: Slow progress. Continue present treatment plan. Anticipate likely discharge before the weekend. Monitor response to increase in Abilify dose.
[2018-01-13 15:56] VITALS: BP 132/92
[2018-01-13 19:54] VITALS: BP 128/82
[2018-01-14 07:39] VITALS: BP 129/90
--- NOTE | 2018-01-14 08:52 | SOCIAL WORKER PROG NOTE PSYCH ---
Social Work Progress Note Progress Note Called [facility] and left a message with Ash (travel agency manager) to discuss Miguelito's referral. Miguelito talked this morning about how he is doing "so, so." Reports that he was "happy go luciana" and kind of energized the last 3 days. He said the increase in the Ablify should be helping. Asked how his screening went with [facility]? He said it took a long time and he doesn't have an answer yet due to it needing to be reviewed by the screening team first. He said he tried to call [facility], but didn't reach anyone yesterday. I asked him if he would be safe to leave today if a bed was available at [facility]? He said he would. His preference would be the [place] [facility], but would not turn down a bed in [place]. He also mentioned possibly going into a half-way from [facility] if the rehab plan didn't work out. I asked how his screening went with Social Security? He said that they will review it in [place] and most likely have an answer for him in 2 months. He is working with an Light Technician and is hopeful about the outcome. A screening was done with Ash from the [place] [facility]. She will admit Miguelito tomorrow if we can refax the d/c agreement stating he is open to a half-way if he can't get into rehab. She would also like a referral faxed to [facility]. Miguelito was open to the referral to [facility] and signed a release.
--- NOTE | 2018-01-14 10:48 | CP SOUTH PROGRESS NOTE PSYCH ---
Psych (Inpt) Progress Note Progress Note Include the following elements, when applicable: Involvement in the active treatment of the patient with behavioral observations of the patient and the patient's response to the treatment. Review of the ongoing treatment process in the context of the treatment plan. Indication of how multi-disciplinary staff members are carrying out the treatment plan. Plans for future interventions and recommendations for revision of the treatment plan. Liaison with other physicians/providers. Progress Note: Case and treatment plan discussed in team meeting. Staff reports that the patient is denying suicidal ideation. He seemed upset this morning. Told protective services social worker that he was feeling so-so today. Patient seen at 10:01 AM. Reports he is doing pretty well. He is pleased with going to [facility] in [place] if a bed becomes available. Affect is calm and blunted. Reports mood is pretty good, just a little sluggish, and he thinks this could be due to increase in Abilify dose as of yesterday. Rates sad mood 0/10 but he feels a little upset about leaving soon. Rates anxiety about 3 -4/10. Denies feeling hopeless, helpless or worthless. Reports he always feels guilty. Denies active and passive suicidal ideation. Denies homicidal ideation. Reports auditory hallucinations but they are not too bad and are tapering down. He has command auditory hallucinations to hurt himself or to get up and leave, but he states he will not act on these voices. Denies visual hallucinations and paranoid ideation. Reports he is getting his usual 4-5 hours of sleep at night and he is used to it. Appetite is described as good. Energy is rated at 3-4/10 with 10 being best. Tolerating current medications well. IMPRESSION: Slow progress. Continue present treatment plan. Anticipate likely discharge within the next couple of days to [facility].
[2018-01-14 11:58] VITALS: BP 150/85
[2018-01-14 15:56] VITALS: BP 141/83
[2018-01-14 19:06] VITALS: BP 133/82
[2018-01-15 07:42] VITALS: BP 146/89
[2018-01-15] MEDS ORDERED: ABILIFY10 M1 PO (10:23)
[2018-01-15] MEDS ORDERED: SYNTHROID50 MCG PO (10:23)
[2018-01-15] MEDS ORDERED: NICORELIEF2 MG PO (10:23)
[2018-01-15] MEDS ORDERED: ABILIFY5 M1 PO (10:23)
[2018-01-15] MEDS ORDERED: GABAPENTIN300 M2 PO ×2 (10:23)
[2018-01-15] MEDS ORDERED: ONE DAILY MULT1 EAC2 PO (10:23)
--- NOTE | 2018-01-15 10:33 | Patient Discharge Instructions ---
Psych Discharge Inst General Discharge Information Reason for Admission: Suicidal ideation. Wanted to jump in front of a train to kill himself or wanted to buy heroin with which to overdose. Psy Discharge Primary Diag+ Javan depr rec severe Psy Discharge Secondary Diag+ Alcohol use disorder Hepatitis C Hypothyroidism Hx pancreatitis Summary Tests/Major Procedures Lab Thyroglobulin Antibody 17 U/mL 01/07/18 0640 Thyroid Peroxidase Ab 33 U/mL 01/07/18 0640 Serum Alcohol 245.0 MG/DL 01/02/18 2210 Lab ALT 81 U/L H 01/02/18 2210 AST 97 U/L H 01/02/18 2210 Anion Gap 21 H 01/02/18 2210 BUN 10 mg/dL 01/02/18 2210 Carbon Dioxide 25 mmol/L 01/02/18 2210 Chloride 100 mmol/L 01/02/18 2210 Cholesterol 280 MG/DL H 08/06/17 0030 Cholesterol/HDL Ratio 4 % 08/06/17 0030 Creatinine 0.8 mg/dL 01/02/18 2210 Estimated GFR > 60 ml/min 01/02/18 2210 Free T4 0.86 ng/dL 01/07/18 0640 Glucose 111 mg/dL H 01/02/18 2210 HDL Cholesterol 77 mg/dL H 08/06/17 0030 Hemoglobin A1c 5.5 % 08/06/17 0030 LDL Cholesterol, Calc 167 mg/dL H 08/06/17 0030 Potassium 4.2 mmol/L 01/02/18 2210 Sodium 146 mmol/L H 01/02/18 2210 TSH 1.120 uIU/mL 10/09/11 1337 TSH 6.590 uIU/mL H 08/06/17 0030 TSH 9.450 uIU/mL H 08/09/17 0650 TSH 2.830 uIU/mL 01/02/18 2210 TSH 8.910 uIU/mL H 01/07/18 0640 Thyroxine (T4) 14.6 ug/dL H 01/02/18 2210 Total Protein 8.5 g/dL H 01/02/18 2210 Total T3 2.25 ng/mL H 01/07/18 0640 Triglycerides 182 mg/dL H 08/06/17 0030 Absolute Granulocytes 8.2 /CUMM H 01/02/18 2210 Absolute Monocytes 0.9 /CUMM H 01/02/18 2210 Hct 49.5 % 01/02/18 2210 Hgb 16.8 G/DL 01/02/18 2210 MCH 33.4 PG H 01/02/18 2210 MCV 98.3 FL H 01/02/18 2210 Plt Count 182 /CUMM 01/02/18 2210 WBC 11.9 /CUMM H 01/02/18 2210 EKG 01/07/18 showed sinus rhythm @ 68, borderline left axis deviation, slower rate since previous tracing, borderline EKG, QT 400, QTc 426. Studies Pending at DC: None. Patient Instructions Contact Information Your Psychiatrist on [facility] was Malcolm Gomez MD * If you are experiencing an emergency related to this hospitalization, please call [phone] to contact the treating psychiatrist or the psychiatrist-on- call. * To Request a copy of your medical records, please contact the Medical Records Department at [phone]. * To request results of studies pending at the time of discharge, please call [phone]. * Continue your Medications until directed to stop by your Healthcare provider. General Medication Information Please continue to take your new medications and your continued home medications , unless otherwise indicated on your discharge medication list, or unless directed by your MD or MIXER SLAGMAN to stop them. Special Instructions Diet Regular Activity Normal Other Inst/Recommendations See Dr. Evans for f/u. You will need repeat TFTs in 6 -8 wks& thyrd ultrasnd - Tobacco Use Treatment Offered Post DC Medications Offered: Script Given-See Med List Post DC Tobacco Treatment Plan: [facility] Program Appt Date: 01/21/18 Program Appt Time: 1600 - EtOH/Drug Use D/O Treatment Offered Post DC Medications Offered: Med Not Indicated for D/O Post DC EtOH/SubAbuse TX Plan: Other SubAbuse/Dual Pgm ([facility] IOP Referral) Program Appt Date: 01/16/18 Program Appt Time: 0900 (TBA) Metabolic Screening () Not Applicable, patient not on a neuroleptic. OR () Patient on a neuroleptic(s) . Enter below results for Hemoglobin A1C, and lipid panel if obtained during the last 365 days. BMI: 23.600 Blood Pressure: 146/89 Laboratory Results From [facility] (If applicable): Please see labs above. Advance Directives Does the Patient have Medical Advance Directives No/Refused further info Does Pt have Psychiatric Advance Directives? No/Refused further info Does Patient have a Designated Surrogate Decision Maker: No Information About Psychiatric Advance Directives Provided? Refused Discharge Plan Post Hospital Treatment Plan: Will live at [facility] in [place]. [facility] referral being made.
--- NOTE | 2018-01-15 11:33 | SOCIAL WORKER PROG NOTE PSYCH ---
Social Work Progress Note Progress Note Spoke with Ash at [facility]. She asked that we call [facility] and schedule an IOP intake with them. I told her we would try, but I couldn't guarentee they would take them. Called Joanna Bartolome at [facility], she said she would accept the referral, but couldn 't give an intake until the week of 01/26. She will call me back with an appt. time after she is in receipt of the referral. Yasmin Solorzano ([employer] student) submitted the referral to [facility]. Submitted referral to [facility] as well. Scheduled [place] to transport Miguelito to [facility] for 1pm. Miguelito is ready to go today. He is aware of the referrals in place. He was also informed that [employer] denied him today, stating they were concerned about reported symptoms of auditory hallucinations. Joanna Mancuso called back with an intake for 01/26 at 9am. I also informed Tg at [facility] that he was discharging today. She will take him on Friday if he is approved with [facility] and their medical team.
--- NOTE | 2018-01-15 13:00 | CP SOUTH PROGRESS NOTE PSYCH ---
Psych (Inpt) Progress Note Progress Note Include the following elements, when applicable: Involvement in the active treatment of the patient with behavioral observations of the patient and the patient's response to the treatment. Review of the ongoing treatment process in the context of the treatment plan. Indication of how multi-disciplinary staff members are carrying out the treatment plan. Plans for future interventions and recommendations for revision of the treatment plan. Liaison with other physicians/providers. Progress Note: Case and treatment plan discussed in team meeting. Patient has been accepted to [facility] for today. Staff reports that the patient is doing well. We are looking into a [facility] IOP referral. Will need 30 days Rx's from us. Patient seen at 11:37 a.m. Reports he is doing okay but has been getting flashbacks of his brother because a peer on the unit resembles brother. Affect is mildly depressed. Wants to go to [facility]. Mood: "I feel good. I'm looking forward to moving." Sad 02/07. Anxiety 05/10. Denies feeling hopeless, helpless or worthless. Always feels guilty. Denies active and passive SI. Denies HI. Reports AHs have tapered off very much. Has not had CAHs x 2 days. Denies having VHs today. Denies PI. Reports sleep was usual, 3 hours last night (ranges 3-5 hours/night). Appetite: good. Energy: "full of it today." Tolerating medications well, without complaint. Patient plans to arrange his own follow up for Hep C treatment and for hypothyroidism (he will be in [place]). Feels ready and safe for discharge. Reports some urinary hesistancy, not new, for which he received tamsulosin in residential. Patient was advised to obtain outpatient follow up care for urinary concern. IMPRESSION: Condition improved. Okay for discharge today with follow up as above.
--- NOTE | 2018-01-15 13:19 | SOCIAL WORKER PROG NOTE PSYCH ---
Social Work Progress Note Faxed Referral(s) 1 Referred To: [facility] Transition of Care Documents sent: Health Summary Faxed to: [facility] Fax #: [phone] Faxed by: Chantal Baird Date faxed: 01/15/18 Time Faxed: [phone] Faxed Referral(s) 2 Referred To: [facility] Transition of Care Documents sent: Health Summary Faxed to: [facility] Fax #: [phone] Faxed by: Chantal Baird Date faxed: 01/15/18 Time Faxed: [phone]
--- NOTE | 2018-01-15 14:26 | DISCHARGE SUMMARY REPORT-PSYCH ---
Visit Information Visit Dates/Diagnosis' Admission Date: 01/06/18 Discharge Date: 01/15/18 Reason for Admission: Suicidal ideation. Wanted to jump in front of a train to kill himself or wanted to buy heroin with which to overdose. Psy Discharge Primary Diag: Javan depr rec severe Psy Discharge Secondary Diag: Alcohol use disorder Hepatitis C Hypothyroidism Hx pancreatitis Hospital Course Significant Lab Findings: Case and treatment plan discussed in team meeting. Staff reports that the patient is irritable. Family meeting with father was scheduled for 10:30 a.m. and with mother for 1 pm. Patient seen at 10:40 a.m. in family meeting with father and LEANDRO Mackey. Patient's left eye was initially droopy consistent with sedation. This droop cleared as she woke up. Affect is irritable and patient uses some foul language but overall she is more measured. Father feels she is doing better. Patient is annoyed because her SW, Aurora, is out sick. Feels a little angry. Denies feeling sad or worried. Reports she was sleeping and feels tired. Denies feeling hopeless, helpless, worthless or guilty. Denies active and passive SI. Denies HI, AH, VH and PI but she likely has some AHs and continues to display some paranoia, "I heard you say immaculate!" Reports her medications are fine but states she is eating and sleeping a lot. Feels ready and safe for discharge. IMPRESSION: Symptomatic but significantly improved. I joined family meeting with patient, mother and Key REEVES, around 1:10 pm. Mother is comfortable accepting patient home. We are working on a treatment contract with patient prior to her discharge. Plan is for discharge today to home, mother and brother with visiting nurse services and follow up with Dipika Kiser APRN. Course Complications: None. Consultations: Patient was seen for admission H&P by Dr. Carrasco, who noted: "Assessment: 57-year-old male with past history significant for hepatitis C, depression, anxiety, alcohol use admitted to Inpatient Psychiatry suicidal ideation. Patient has attempted to jump in front of the train as well as doing heroine overdose. He has abnormal thyroid function. Recommend endocrinology consult. Patient currently on Ativan and thiamine. We leave the rest of the psych management up to psychiatry. I will order endocrinology consult." Dr. Evans of endocrinology consult regarding hypothyroidism. She recommended: "1. start Levothyroxine 50 mcg daily; 2. repeat TFT in 6-8 weeks; 3. f/u in office after discharge and will order thyroid u.s as outpatient." Allergies: Coded Allergies: NO KNOWN ALLERGIES (NONE 01/06/18) Hospital Course/TX Response: The patient was monitored on the unit for safety, psychosis and mood disorder. He participated in multi-modal treatments on the unit. Abilify was ordered for AHs with dose tapered up to 5 mg qAM and 10 mg qhs. Levothyroxine was ordered at 50 mcg daily. Mood and affect have improved. SI has remitted. AHs have improved. Progress note from date of discharge, 01/15/18: Case and treatment plan discussed in team meeting. Patient has been accepted to [facility] for today. Staff reports that the patient is doing well. We are looking into a [facility] referral. Will need 30 days Rx's from us. Patient seen at 11:37 a.m. Reports he is doing okay but has been getting flashbacks of his brother because a peer on the unit resembles brother. Affect is mildly depressed. Wants to go to [facility]. Mood: "I feel good. I'm looking forward to moving." Sad /10. Anxiety /10. Denies feeling hopeless, helpless or worthless. Always feels guilty. Denies active and passive SI. Denies HI. Reports AHs have tapered off very much. Has not had CAHs x 2 days. Denies having VHs today. Denies PI. Reports sleep was usual, 3 hours last night (ranges 3-5 hours/night). Appetite: good. Energy: "full of it today." Tolerating medications well, without complaint. Patient plans to arrange his own follow up for Hep C treatment and for hypothyroidism (he will be in [place]). Feels ready and safe for discharge. Reports some urinary hesistancy, not new, for which he received tamsulosin in half-way. Patient was advised to obtain outpatient follow up care for urinary concern. IMPRESSION: Condition improved. Okay for discharge today with follow up as above. Discharge HBIPS - Tobacco Use Treatment Offered Post DC Medications Offered: Script Given-See Med List Post DC Tobacco Treatment Plan: [facility] Program Appt Date: 01/21/18 Program Appt Time: 1600 - EtOH/Drug Use D/O Treatment Offered Post DC Medications Offered: Med Not Indicated for D/O Post DC EtOH/SubAbuse TX Plan: Other SubAbuse/Dual Pgm ([facility]) Program Appt Date: 01/26/18 Program Appt Time: 0900 Metabolic Screening - Screen if on a Neuroleptic Medication - Metabolic screening should include: - Blood Pressure, BMI, Glucose or Hgb A1c, & a - Lipid profile from within the past 365 days. Metabolic Screening () Not Applicable, patient not on a neuroleptic. OR () Patient on a neuroleptic(s) . Enter below results for Hemoglobin A1C, and lipid panel if obtained during the last 365 days. BMI: 23.600 Blood Pressure: 146/89 Laboratory Results From [facility] (If applicable): [x] Lab Cholesterol 280 MG/DL H 08/06/17 0030 Cholesterol/HDL Ratio 4 % 08/06/17 0030 HDL Cholesterol 77 mg/dL H 08/06/17 0030 Hemoglobin A1c 5.5 % 08/06/17 0030 LDL Cholesterol, Calc 167 mg/dL H 08/06/17 0030 Triglycerides 182 mg/dL H 08/06/17 0030 Discharge Instructions General Discharge Information Multiple Neuroleptics: ([x]) Not Applicable OR Document below three failed attempts at monotherapy, or a plan to taper to monotherapy, or augmentation of Clozapine. () Discharge Diet Regular Discharge Activity Normal DC Disposition: [facility] [place]. Referrals Ordered Referrals Provider Referral 01/15/18 For Groups: [facility] [place] [facility] admission 01/15/18 [address] [place], [place] [phone] Provider Referral 01/26/18 For Groups: [[facility]] [facility] Intake 01/26/18 9am [address] [phone] Provider Referral 01/21/18 For Groups: Outpatient Psychiatry [facility] Smoking Cessation Group 01/21/18 4pm [address] [place] [address] Prescriptions Start taking the following new medications: Nicotine (Nicorelief) 2 MG GUM 2 Milligram ORAL EVERY 2 HOURS NEEDED as needed for nicotine craving Qty = 120 No Refills Comments: Last Taken:NOT USED IN THE HOSPITAL Time: Gabapentin (Gabapentin) 300 MG CAPSULE 300 Milligram ORAL EVERY 4 HOURS NEEDED as needed for OFF-LABEL for Anx/ Agt/Insomnia Qty = 60 No Refills Comments: Last Taken:01/15/18 Time:0800 Gabapentin (Gabapentin) 300 MG CAPSULE 3 Capsule ORAL AT BEDTIME Qty = 90 No Refills Comments: Last Taken:01/14/18 Time:2200 Aripiprazole (Abilify) 5 MG TABLET 5 Milligram ORAL DAILY Qty = 30 No Refills Comments: Last Taken:01/15/18 Time:0800 Aripiprazole (Abilify) 10 MG TABLET 10 Milligram ORAL AT BEDTIME Qty = 30 No Refills Comments: Last Taken:01/14/18 Time:2200 Levothyroxine Sodium (Synthroid) 50 MCG TABLET 0.05 Milligram ORAL DAILY BEFORE BREAKFAST Qty = 30 No Refills Comments: Last Taken:01/15/18 Time:0600 Multivitamin (One Daily Multivitamin) 1 EACH TABLET 1 Tablet ORAL DAILY Qty = 30 No Refills Comments: Last Taken:01/15/18 Time:0800 Other Inst/Recommendations See Dr. Evans for f/u. You will need repeat TFTs in 6 -8 wks& thyrd ultrasnd Studies Pending at Discharge None. Copies To: [facility]
== END 2018-01-15 14:38 | DRG 751 ==
LOC: ERH 21:19 → CP SOUTH 01-06 10:19 → ERHI 01-06 10:19 → EDBEDREQ 01-06 10:30 → ENRESERV 01-06 11:11 → ENTRNSPT 01-06 12:22 → EDTRNSPT 01-06 12:32 → EDTRNSPTSTS 01-06 12:32 → CP SOUTH 01-06 12:40 → CMPTRNSPT 01-06 12:49 → CP SOUTH 01-08 09:01
PROVIDERS: Physician Assistant Medical
DX: F33.2 Major depressive disorder, recurrent severe without psychotic features (principal); Z72.89 Other problems related to lifestyle; B19.20 Unspecified viral hepatitis C without hepatic coma; E03.9 Hypothyroidism, unspecified; Z87.19 Personal history of other diseases of the digestive system
CPT/HCPCS: 36415; 80307; 86376; 86800; 93005; 93010; G0463; G0480; J0401; J3490

== ENCOUNTER 2018-06-07 09:38 | Inpatient (IN) | payer OTHER ==
[2018-06-07] VITALS (7 sets, daily range): BP systolic 132–154; BP diastolic 84–100
[~2018-06-07] VITALS: Ht 177.8 cm; Wt 89.2 kg
[~2018-06-07 09:38] MED LIST changes: +GABAPENTIN300 M2 PO; +NICORELIEF2 MG PO
--- NOTE | 2018-06-07 10:03 | ED CARDIAC/CP/PALPITATIONS ---
History of Present Illness General Chief Complaint: General Adult Stated Complaint: BIBA ABD PAIN, CHEST PAIN Source: patient Exam Limitations: poor historian, lethargic, during discussion patient would fall asleep Vital Signs & Intake/Output Vital Signs & Intake/Output Vital Signs Date Time Temp Pulse Resp B/P B/P Pulse O2 O2 Flow FiO2 Mean Ox Delivery Rate 06/07 1545 98.3 108 18 150/96 92 Nasal 3.0L Cannula 06/07 1441 94 Nasal 3.0L Cannula 06/07 1421 98.7 100 18 134/87 07/08 1420 98.7 100 18 134/87 95 Nasal 3.0L Cannula / 1227 98.0 70 20 132/84 07/08 1212 98.0 70 20 132/84 95 Nasal 3.0L Cannula / 1047 100 20 94 Nasal 3.0L Cannula 06/07 1033 92 Nasal 3.0L Cannula 06/07 1030 97.7 95 20 143/87 07/08 1030 92 Nasal 3.0L Cannula 06/07 0944 97.7 95 20 143/87 92 Nasal 3.0L Cannula Allergies Coded Allergies: NO KNOWN ALLERGIES (NONE 01/06/18) Triage Note: PT BIBA FROM HOME FOR ABD PAIN, CHEST PAIN AND "I CAN'T SWALLOW". PT ADMITS TO DRINKING LAST NIGHT, H/O ETOH ABUSE AND PANCREATITIS. ARRIVES TO ED ALERT/SLEEPY. PT RECEIVED 324MG ASA BY EMS. CHANGED INTO GOWN, EKG IN PROGRESS, AWAITS PROVIDER EVAL. Triage Nurses Notes Reviewed? yes Onset: Abrupt Duration: continues in ED Timing: remote history ("has happened once before") Quality/Severity: aching, difficult to swallow Location: substernal Activities at Onset: none HPI: 57-year-old male brought in by ambulance with history of hepatitis C, pancreatitis, alcoholism. Patient lethargic during initial examination, poor historian, falling asleep during discussion. Patient reported just before coming to the hospital having chest/abdominal pain, difficulty with swallowing. Patient reports that he was just discharged from detox center and states last night he had about 5-6 beers. He denies any other drug use. He denies HI/SI. (Alexsander MARTINEZ,Ciara) Reconcile Medications Amitriptyline HCl 50 MG TABLET 1 TAB PO QPM MENTAL HEALTH/SLEEP (Reported) Aripiprazole (Abilify) 10 MG TABLET 1 TAB PO BID MENTAL HEALTH (Reported) Gabapentin 300 MG CAPSULE 1 CAP PO TID PRN DEPRESSION/ANXIETY (Reported) Hydroxyzine HCl (hydrOXYzine HCl) 10 MG TABLET 1 TAB PO PRN ANXIETY (Reported ) Levothyroxine Sodium (Synthroid) (Unknown Strength) TABLET (Unknown Dose) PO DAILY SUPPLEMENT (Reported) Tamsulosin HCl 0.4 MG CAP.ER.24H 1 CAP PO DAILY (Reported) (Bret Walker MD) Past History Travel History Traveled to [place] past 21 day No Medical History Any Pertinent Medical History? see below for history Neurological: NONE EENT: NONE Cardiovascular: NONE Respiratory: NONE Gastrointestinal: pancreatitis Hepatic: hepatitis C, ELEVATED LIVER ENZYMES Renal: NONE Musculoskeletal: NONE Psychiatric: anxiety, depression, insomnia, STRESS Endocrine: NONE Blood Disorders: NONE Cancer(s): NONE PRODUCTION METAL SPRAYER/Reproductive: NONE History of MRSA: No History of VRE: No History of CDIFF: No Tetanus Vaccine: 07/05/17 Surgical History Surgical History: non-contributory Psychosocial History Who do you live with Other (see notes) Services at Home None What is your primary language Vietnamese Tobacco Use: Current Daily Use Daily Tobacco Use Amount/Type: => 5 Cigarettes daily ETOH Use: heavy use Illicit Drug Use: denies illicit drug use Family History Family History, If Any: MOTHER FH: diabetes mellitus FHx: stroke FATHER FHx: stroke BROTHER FH: heart attack Hx Contributory? No (Ciara Morris) Review of Systems Review of Systems Constitutional: Reports: see HPI. EENTM: Reports: no symptoms. Respiratory: Reports: no symptoms. Cardiovascular: Reports: see HPI. GI: Reports: see HPI. Genitourinary: Reports: no symptoms. Musculoskeletal: Reports: no symptoms. Skin: Reports: no symptoms. Neurological/Psychological: Reports: see HPI. Hematologic/Endocrine: Reports: no symptoms. Immunologic/Allergic: Reports: no symptoms. All Other Systems: Reviewed and Negative (Ciara Morris) Physical Exam Physical Exam General Appearance: well developed/nourished, no apparent distress, lethargic Head: atraumatic, normal appearance Eyes: Bilateral: normal appearance. Ears, Nose, Throat: hearing grossly normal, oral mucous membranes dry Neck: normal inspection, supple, full range of motion Respiratory: chest non-tender, accessory muscle use, crackles (right lower lobe) , wheezing, 3L nasal cannual satting 89/90 Cardiovascular: regular rate/rhythm, normal peripheral pulses Peripheral Pulses: 3+ radial (R), 3+ radial (L) Gastrointestinal: normal bowel sounds, soft, non-tender Extremities: normal inspection, normal range of motion Neurologic/Psych: no motor/sensory deficits, awake, alert, oriented x 3, lethargic, falling asleep during visit Skin: intact, normal color, diaphoresis Core Measures ACS in differential dx? Yes CVA/TIA Diagnosis No Sepsis Present: No Sepsis Focused Exam Completed? No (Alexsander MARTINEZ,Ciara) Progress Differential Diagnosis: AMI, costochondritis, pancreatitis, pneumonia, PUD/GERD Plan of Care: Orders Procedure Date/time Status Regular Diet 06/08 B Active CBC WITHOUT DIFFERENTIAL 06/08 600 Active BASIC ELECTROLYTES PLUS BUN&CR 06/08 06 Active Regular Diet 06/07 D Complete Add-on Test (ER Only) 06/07 1658 Active ARTERIAL BLOOD GAS (GEN) 06/07 1652 Active ARTERIAL BLOOD GAS (GEN) 06/07 1648 Active D-DIMER 06/07 1648 Active LACTIC ACID 06/07 1618 Active OXYGEN SETUP (GEN) 06/07 1614 Active Pathway - chart 06/07 1614 Active House Staff 06/07 1614 Active Patient Data 06/07 1614 Active SOCIAL WORK CONSULT 06/07 1614 Active Code Status 06/07 1614 Active Add-on Test (ER Only) 06/07 1600 Active Patient Data 06/07 1557 Active OXYGEN SETUP (GEN) 06/07 1554 Active Saline Lock 06/07 1554 Active Admit to inpatient 06/07 1554 Active Vital Signs 06/07 1554 Active Activity/Ambulation 06/07 1554 Active Code Status 06/07 1554 Complete Add-on Test (ER Only) 06/07 1500 Active CULTURE,URINE 06/07 1453 Active URINALYSIS 06/07 1453 Complete Christina, Insertion/Removal/Asses 06/07 1438 Complete LACTIC ACID 06/07 1317 Complete BLOOD CULTURE 06/07 1152 Active Add-on Test (ER Only) 06/07 1033 Active ETHANOL 06/07 1030 Complete CIWA 06/07 1017 Active URINE DRUGS OF ABUSE 06/07 1017 Complete TROPONIN LEVEL 06/07 1017 Complete LIPASE 06/07 1017 Complete LACTIC ACID 06/07 1017 Complete COMPREHENSIVE METABOLIC PANEL 06/07 1017 Complete CBC WITHOUT DIFFERENTIAL 06/07 1017 Complete EKG 06/07 0940 Active VTE Mechanical Prophylaxis 06/07 UNK Active Vital Signs 06/07 UNK Active Intake & Output 06/07 UNK Active CIWA 06/07 UNK Active Activity/Ambulation 06/07 UNK Active Current Medications Sig/Angel Start time Last Medication Dose Stop Time Status Admin Lorazepam 2 MG Q6 06/07 1800 UNVr (Ativan) Pantoprazole Sodium 40 MG DAILY 06/07 1633 UNVr (Protonix) Cyanocobalamin/ 1 BAG ONCE ONE 06/07 1615 AC Thiamine/Pyridoxine 06/08 0014 (Vitamin in I.V.) Dextrose/Water 1,000 ML (D5W 1000) Dextrose/Sodium 1,000 ML Q6H 06/07 1615 UNVr Chloride (D5W-1/2 Normal Saline 1000ML) Lorazepam 1 MG Q1P PRN 06/07 1615 UNVr (Ativan) Sodium Chloride 1,000 ML BOLUS ONE 06/07 1615 CAN (Normal Saline 0.9%) 06/07 1714 Laboratory Tests 06/07/18 1705: pH 7.28 *L, pCO2 53 H, pO2 74 L, HCO3 24, ABG O2 Sat (Measured) 90.0 L, Carboxyhemoglobin 4.6, O2 Concentration % 3L, O2 Delivery Method N/C, Phlebotomy Draw Site RIGHT RADIAL 06/07/18 1652: D-Dimer High Sensitivty Cancelled 06/07/18 1453: Urine Opiates Screen < 100, Methadone Screen > 735 H, Barbiturate Screen < 60, Ur Phencyclidine Scrn < 6.00, Amphetamines Screen < 100, U Benzodiazepines Scrn < 85, Urine Cocaine Screen < 50, Urine Cannabis Screen < 5.00, Urinalysis LIGHT H, Urine Color YEL, Urine Clarity HAZY H, Urine pH 6.0, Ur Specific [place]uddy >= 1.030, Urine Protein 30 H, Urine Ketones 15 H, Urine Nitrite NEG, Urine Bilirubin NEG, Urine Urobilinogen 0.2, Ur Leukocyte Esterase NEG, Ur Microscopic SEDIMENT EXAMINED, Urine RBC 1-3, Urine WBC 10-15 H, Ur Epithelial Cells FEW, Urine Bacteria MOD H, Hyaline Casts 10-15 H, Granular Casts 15-25 H, Urine Mucus FEW, Urine Hemoglobin LARGE H, Urine Glucose NEG 06/07/18 1328: Lactic Acid 2.2 H 06/07/18 1030: Anion Gap 16, Estimated GFR > 60, BUN/Creatinine Ratio 17.5, Glucose 115 H, Lactic Acid 2.6 H, Calcium 8.8, Total Bilirubin 0.7, AST 151 H, ALT 98 H, Alkaline Phosphatase 99, Troponin I < 0.01, Total Protein 8.2, Albumin 4.6, Globulin 3.6, Albumin/Globulin Ratio 1.3, Lipase 44, D-Dimer High Sensitivty Pending, CBC w Diff MAN DIFF ORDERED, RBC 5.20, MCV 97.7 H, MCH 33.7 H, MCHC 34.5, RDW 13.8, MPV 7.8, Gran % 88.3 H, Lymphocytes % 4.5 L, Monocytes % 7.2, Eosinophils % 0, Basophils % 0, Absolute Granulocytes 21.2 H, Absolute Lymphocytes 1.1 L, Absolute Monocytes 1.7 H, Absolute Eosinophils 0, Absolute Basophils 0, Platelet Estimate ADEQUATE, Normocytic RBCs VERIFIED, Normochromic RBCs VERIFIED, Serum Alcohol 88.0 Microbiology 06/07 1453 URINE ROUT: Urine Culture - RECD 06/07 1438 URINE ROUT: Urine Culture - CAN Cancelled: Cancelled via OE: NOT NEEDED 06/07 1202 BLOOD: Blood Culture - RECD 06/07 1158 BLOOD: Blood Culture - RECD 57 year old male with history of hepatitic C, pancreatitis, and alcoholism presenting with chest/abdominal pain and vomiting. Recently discharged from detox center, reported having drank alcohol last night but denied other drugs. Urine positive for methadone. -Lactic acid elevated 2.6, and WBC 24 - started on empiric ceftriaxone IV s/p blood cultures -CXR hypoinflated lungs -Duoneb, acetaminophen, fluids, zofran re-ordered -Bacteriuria - ordered uc, potentially the origin of patient's elevated WBC. -Admitting patient to [facility]. Spoke with hospitalist and MOD who accepted admission. Diagnostic Imaging: Viewed by Me: Radiology Read. Discussed w/RAD: Radiology Read. Radiology Impression: PATIENT: BONNIE BARAHONA PRESENT AGE: 57 PATIENT ACCOUNT NO: [id number] : 62 LOCATION: [facility] ORDERING PHYSICIAN: Ciara MARTINEZ SERVICE DATE: 06/07/18 EXAM TYPE: RAD - XRY-PORTABLE CHEST XRAY EXAMINATION: XR PORTABLE CHEST CLINICAL INFORMATION: Wheezing. Low oxygen saturation. COMPARISON: 12/10/2016 TECHNIQUE: Portable frontal view of the chest was obtained. FINDINGS: Lungs are suboptimally evaluated due to hypoinflation. The hypoinflation causes crowding of bronchovascular structures in the bases. No focal consolidation is seen. No pulmonary edema or pleural effusion. The size of the cardiac silhouette is accentuated by the portable technique and hypoinflation. Skeletal findings include old, healed fracture of the mid right clavicle and old, healed fractures of the left posterolateral fifth and sixth ribs. IMPRESSION: 1. Lungs are hypoinflated. 2. No evidence of pneumonia or pleural effusion. DICTATED BY: Ton Fuentes MD DATE/TIME DICTATED:06/07/181157 WAX BLENDER:DONALD DATE/TIME TRANSCRIBED:06/07/181157 CONFIDENTIAL, DO NOT COPY WITHOUT APPROPRIATE AUTHORIZATION. <Electronically signed in Other Vendor System> SIGNED BY: Ton Fuentes MD 06/07/18 1203 Initial ED EKG: normal sinus rhythm (Ciara Morris) Departure Departure Disposition: STILL A PATIENT Condition: Stable Clinical Impression Primary Impression: Elevated WBC count Qualifiers: Leukocytosis type: other Qualified Code: D72.828 - Other elevated white blood cell count Secondary Impressions: Elevated lactic acid level, Low O2 saturation Referrals: Ricky Palacios APRN (PCP/Family) Departure Forms: Customer Survey General Discharge Information Admission Note Spoke With: Yaniv Driscoll MD Documentation of Exam: Documentation of any treatments & extenuating circumstances including Concerns Regarding Discharge (functional status, medication knowledge or non-compliance, living conditions, etc.) that warrant an admission rather than observation: [ possible aspiration pneumonia, elevated WBC and lactic acid, low o2 sat on 2L NC ] (Ciara Morris) PA/GYN Co-Sign Statement Statement: ED Attending supervision documentation- x I saw and evaluated the patient. I have also reviewed all the pertinent lab results and diagnostic results. I agree with the findings and the plan of care as documented in the PA's/GYN's documentation. Completed detox yesterday drank beer awoke with abd pain and CP, hypoxic with leukocytosis: pneumonia [] I have reviewed the ED Record and agree with the PA's/GYN's documentation. [] Additions or exceptions (if any) to the PAs/GYN's note and plan are summarized below: [] (Denise CHRISTIANSON,Bret) Critical Care Note Critical Care Note Critical Care Time: non-applicable (Alexsander MARTINEZ,Ciara)
[2018-06-07 10:44] LABS: ABSOLUTE BASOPHIL COUNT 0 /CUMM (0.0-0.2); ABSOLUTE EOSINOPHIL COUNT 0 /CUMM (0.0-0.7); ABSOLUTE GRANULOCYTE CT 21.2 /CUMM (1.4-6.5); ABSOLUTE LYMPH COUNT 1.1 /CUMM (1.2-3.4); ABSOLUTE MONOCYTE COUNT 1.7 /CUMM (0.10-0.60); BASOPHIL % 0 % (0.0-2.0); EOSINOPHIL % 0 % (0-5); GRANULOCYTE % 88.3 % (42.2-75.2); HEMATOCRIT 50.8 % (42-52); MEAN CORPUSCULAR HGB 33.7 PG (27.0-31.0); MEAN CORPUSCULAR HGB CONC 34.5 G/DL (33.0-37.0); MEAN CORPUSCULAR VOLUME 97.7 FL (80.0-94.0); MEAN PLATELET VOLUME 7.8 FL (7.4-10.4); PLATELET COUNT 219 /CUMM (130-400); RBC DISTRIBUTION WIDTH 13.8 % (11.5-14.5)
--- NOTE | 2018-06-07 12:03 | RADIOLOGY REPORT ---
EXAMINATION: XR PORTABLE CHEST CLINICAL INFORMATION: Wheezing. Low oxygen saturation. COMPARISON: 12/10/2016 TECHNIQUE: Portable frontal view of the chest was obtained. FINDINGS: Lungs are suboptimally evaluated due to hypoinflation. The hypoinflation causes crowding of bronchovascular structures in the bases. No focal consolidation is seen. No pulmonary edema or pleural effusion. The size of the cardiac silhouette is accentuated by the portable technique and hypoinflation. Skeletal findings include old, healed fracture of the mid right clavicle and old, healed fractures of the left posterolateral fifth and sixth ribs. IMPRESSION: 1. Lungs are hypoinflated. 2. No evidence of pneumonia or pleural effusion.
[2018-06-07] MEDS ORDERED: ABILIFY10 M1 PO (12:35)
[2018-06-07] MEDS ORDERED: AMITRIPTYLINE H50 M2 PO (12:36)
[2018-06-07] MEDS ORDERED: NEURONTIN300 M1 PO (12:36)
[2018-06-07] MEDS ORDERED: TAMSULOSIN HCL0.4 M1 PO (12:37)
[2018-06-07] MEDS ORDERED: SYNTHROID50 MCG PO (12:37)
[2018-06-07] MEDS ORDERED: HYDROXYZINE HCL10 M2 PO (12:38)
--- NOTE | 2018-06-07 16:11 | History & Physical ---
Luke CHRISTIANSON,Kristie 06/07/18 1611: General Information and HPI MD Statement: I have seen and personally examined BONNIE BARAHONA and documented this H&P. The patient is a 57 year old M who presented with a patient stated chief complaint of [difficulty swallowing]. Source of Information: patient, EMS Exam Limitations: no limitations History of Present Illness: Patient is a 55-year-old male with past medical history significant for hepatitis C, altered LFTs, anxiety/depression, active smoking, alcohol intoxication requiring multiple detoxifications, pancreatitis twice in the past presented to [facility] with acute onset difficulty in swallowing along with chest pain and abdominal pain. Patient was recently incarcerated for 10 months followed by staying inpatient rehabilitation for 3 months. He was discharged yesterday morning, got drunk 2-3-4 beers and took methadone overnight. Today morning he suddenly experienced difficulty with swallowing both liquids and solids. He reports significant nausea with chest pain/abdominal pain at the time of presentation. However by the time of interview he denied any pain. He is actively nauseous and experiencing dry heaving. He smokes 1 pack per day for the past 40 years, drinks alcohol and had multiple detoxifications in the past, abused widen variety of drugs at different times in his lifetime. Stays alone. Had a brother in [place]. Allergies/Medications Allergies: Coded Allergies: NO KNOWN ALLERGIES (NONE 01/06/18) Home Med list Amitriptyline HCl 50 MG TABLET 1 TAB PO QPM MENTAL HEALTH/SLEEP (Reported) Aripiprazole (Abilify) 10 MG TABLET 1 TAB PO BID MENTAL HEALTH (Reported) Gabapentin 300 MG CAPSULE 1 CAP PO TID PRN DEPRESSION/ANXIETY (Reported) Hydroxyzine HCl (hydrOXYzine HCl) 10 MG TABLET 1 TAB PO PRN ANXIETY (Reported ) Levothyroxine Sodium (Synthroid) (Unknown Strength) TABLET (Unknown Dose) PO DAILY SUPPLEMENT (Reported) Tamsulosin HCl 0.4 MG CAP.ER.24H 1 CAP PO DAILY (Reported) Compliance With Home Meds: FAIR Past History Travel History Traveled to [place] past 21 day No Medical History Neurological: NONE EENT: NONE Cardiovascular: NONE Respiratory: NONE Gastrointestinal: pancreatitis Hepatic: hepatitis C, ELEVATED LIVER ENZYMES Renal: NONE Musculoskeletal: NONE Psychiatric: anxiety, depression, insomnia, STRESS Endocrine: NONE Blood Disorders: NONE Cancer(s): NONE FORENSIC DNA ANALYST/Reproductive: NONE History of MRSA: No History of VRE: No History of CDIFF: No Tetanus Vaccine: 07/05/17 Surgical History Surgical History: non-contributory Past Family/Social History Family History Relations & Conditions if any MOTHER FH: diabetes mellitus FHx: stroke FATHER FHx: stroke BROTHER FH: heart attack Psychosocial History Where do you live? Home Who Do You Live With? 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 Exam & Diagnostic Data Last 24 Hrs of Vital Signs/I&O Vital Signs Date Time Temp Pulse Resp B/P B/P Pulse O2 O2 Flow FiO2 Mean Ox Delivery Rate 06/07 2155 Nasal 3.0L Cannula 06/07 2132 98.5 88 20 140/88 94 06/07 2007 Nasal 3.0L Cannula 06/07 1927 98.2 94 20 140/100 95 06/07 1851 98.6 99 18 148/96 93 Nasal 3.0L Cannula 06/07 1751 98.3 103 18 154/98 07/08 1742 98.3 103 18 154/98 91 Nasal 3.0L Cannula 06/07 1550 98.3 108 18 150/96 07/08 1545 98.3 108 18 150/96 92 Nasal 3.0L Cannula 06/07 1441 94 Nasal 3.0L Cannula 06/07 1421 98.7 100 18 134/87 07/08 1420 98.7 100 18 134/87 95 Nasal 3.0L Cannula 06/07 1227 98.0 70 20 132/84 07/08 1212 98.0 70 20 132/84 95 Nasal 3.0L Cannula 08 1047 100 20 94 Nasal 3.0L Cannula 06/07 1033 92 Nasal 3.0L Cannula 06/07 1030 97.7 95 20 143/87 07/08 1030 92 Nasal 3.0L Cannula 06/07 0944 97.7 95 20 143/87 92 Nasal 3.0L Cannula Intake & Output /08 1600 07/08 0800 07/08 0000 Intake Total 2100 Output Total 500 Balance 1600 Intake, IV 2100 Output, Urine 500 Patient 81.647 kg Weight Weight Estimated Measurement Method Physical Exam General Appearance Alert, Oriented X3, Mild Distress Skin No Rashes, No Breakdown, plethoric Skin Temp/Moisture Exam: Warm/Dry HEENT Atraumatic, PERRLA, EOMI Neck Supple, No JVD Cardiovascular Normal S1, Normal S2, No Murmurs Lungs Clear to Auscultation, Normal Air Movement Abdomen Normal Bowel Sounds, distended, guarding throughout Neurological Strength at 5/5 X4 Ext, Normal Tone, Sensation Intact Extremities No Clubbing, No Cyanosis, No Edema Vascular Normal Pulses Last 24 Hrs of Labs/Darnell: Laboratory Tests 06/07/18 2200: Sodium Pending, Potassium Pending, Chloride Pending, Carbon Dioxide Pending, Anion Gap Pending, BUN Pending, Creatinine Pending, BUN/Creatinine Ratio Pending , Lactic Acid Pending 06/07/18 1705: pH 7.28 *L, pCO2 53 H, pO2 74 L, HCO3 24, ABG O2 Sat (Measured) 90.0 L, Carboxyhemoglobin 4.6, O2 Concentration % 3L, O2 Delivery Method N/C, Phlebotomy Draw Site RIGHT RADIAL 06/07/18 1652: D-Dimer High Sensitivty Cancelled 06/07/18 1453: Urine Opiates Screen < 100, Methadone Screen > 735 H, Barbiturate Screen < 60, Ur Phencyclidine Scrn < 6.00, Amphetamines Screen < 100, U Benzodiazepines Scrn < 85, Urine Cocaine Screen < 50, Urine Cannabis Screen < 5.00, Urinalysis LIGHT H, Urine Color YEL, Urine Clarity HAZY H, Urine pH 6.0, Ur Specific [place] >= 1.030, Urine Protein 30 H, Urine Ketones 15 H, Urine Nitrite NEG, Urine Bilirubin NEG, Urine Urobilinogen 0.2, Ur Leukocyte Esterase NEG, Ur Microscopic SEDIMENT EXAMINED, Urine RBC 1-3, Urine WBC 10-15 H, Ur Epithelial Cells FEW, Urine Bacteria MOD H, Hyaline Casts 10-15 H, Granular Casts 15-25 H, Urine Mucus FEW, Urine Hemoglobin LARGE H, Urine Glucose NEG 06/07/18 1328: Lactic Acid 2.2 H 06/07/18 1030: Anion Gap 16, Estimated GFR > 60, BUN/Creatinine Ratio 17.5, Glucose 115 H, Lactic Acid 2.6 H, Calcium 8.8, Total Bilirubin 0.7, AST 151 H, ALT 98 H, Alkaline Phosphatase 99, Troponin I < 0.01, Total Protein 8.2, Albumin 4.6, Globulin 3.6, Albumin/Globulin Ratio 1.3, Lipase 44, D-Dimer High Sensitivty 886 H, CBC w Diff MAN DIFF ORDERED, RBC 5.20, MCV 97.7 H, MCH 33.7 H, MCHC 34.5, RDW 13.8, MPV 7.8, Gran % 88.3 H, Lymphocytes % 4.5 L, Monocytes % 7.2, Eosinophils % 0, Basophils % 0, Absolute Granulocytes 21.2 H, Absolute Lymphocytes 1.1 L, Absolute Monocytes 1.7 H, Absolute Eosinophils 0, Absolute Basophils 0, Platelet Estimate ADEQUATE, Normocytic RBCs VERIFIED, Normochromic RBCs VERIFIED, Serum Alcohol 88.0 Microbiology 06/07 1453 URINE ROUT: Urine Culture - RECD 06/07 1438 URINE ROUT: Urine Culture - CAN Cancelled: Cancelled via OE: NOT NEEDED 06/07 1202 BLOOD: Blood Culture - RECD 06/07 1158 BLOOD: Blood Culture - RECD Diagnostic Data EKG Results NSR Assessment/Plan Assessment: Patient is 57-year-old with active smoking, significant alcohol consumption, polysubstance abuse recently discharged from inpatient rotation for alcoholism presented to [facility] with acute gastric upset after consuming alcohol. Vital signs at presentation are significant for tachycardia. Physical examination did show mild crackles and significant guarding in the abdomen with tenderness to palpation. Labs did show white count of 24, lactic acidosis, carbon dioxide narcosis on ABG. Imaging with CT angiogram ruled out pulmonary embolus. CT abdomen pelvis with IV contrast did show fluid distention of the stomach with abrupt transition point for gastric pylorus/duodenal bulb concerning for gastric outlet obstruction. Hepatic steatosis. Differential Acute gastritis/gastropathy after alcohol consumption Gastric outlet obstruction Hypoinflation of lungs secondary to gastric distention compressing the lungs Acute dysphagia to fluids and liquids in the chest region suggestive of motility disorder. Need to rule out obstruction in the setting of abdominal tenderness. Problem list 1. Acute alcohol-induced gastrointestinal upset 2. Gastric outlet obstruction 3. Acute hypoxic hypercarbic respiratory failure 4. Active tobacco consumption 5. History of Polysubstance abuse 6. History of anxiety/depression 7. H/O BPH Plan Admit to general medicine floor Sepsis in setting of partial gastric outlet obstruction * Nothing by mouth * Trend lactic acid * IV fluids * NG tube for decompression * IV ceftriaxone * CIWA diagnostic * Serial abdominal exams * Recheck CBC, BEP tomorrow Acute hypoxic hypercarbic respiratory failure 40 pack a smoking history. Smoked till yesterday. ABG carbon dioxide retention resulting in respiratory acidosis * BiPAP * Repeat ABG in 2 hours * TRC/nebs * Oxygen supplementation * Ruled out PE with CT angiogram * Palm consult in a.m. History of depression/anxiety Patient was on gabapentin, aripiprazole 10 mg twice a day. * On hold, continue once advancing diet. Hypothyroidism * Check TSH free T4 * Continue levothyroxine pending above H/O BPH * hold flomax * continue once diet advanced DVT prophylaxis Subcutaneous Lovenox CODE STATUS Full code As Ranked By This Provider Problem List: 1. Elevated lactic acid level 2. Elevated WBC count Qualifiers Leukocytosis type: other Qualified Code: D72.828 - Other elevated white blood cell count 3. Partial gastric outlet obstruction 4. Low O2 saturation 5. Acute respiratory failure with hypoxia and hypercarbia Core Measures/Misc (08/17) Acute Coronary Syndrome ACS Diagnosis: No Congestive Heart Failure Congestive Heart Failure Diagnosis No Cerebrovascular Accident CVA/TIA Diagnosis: No VTE (View Protocol) VTE Risk Factors Acute Medical Illness No Mechanical VTE Prophylaxis d/t N/A MechProphylax Ordered No VTE Pharm Prophylaxis d/t NA PharmProphylax ordered Sepsis (View protocol) Sepsis Present: Yes If YES complete Sepsis Event Note If YES complete Sepsis Event Note Yaniv Driscoll MD 06/07/18 1805: Core Measures/Misc (08/17) Sepsis (View protocol) If YES complete Sepsis Event Note If YES complete Sepsis Event Note Attending MD Review Statement Attending Statement Attending MD Statement: examined this patient, discuss w/resident/PA/LIQUOR TESTER, agreed w/resident/PA/LIQUOR TESTER, reviewed EMR data (avail), discussed with nursing, amended to note Attending Assessment/Plan: Patient seen and examined. 57-year-old male with history of hepatitis C, pancreatitis, alcoholism. Presents with complaints of abdominal discomfort and vomiting. In the emergency room he was found afebrile. He was found to be hypoxic 80s on room air. He was placed hypoinflated lungs without evidence of pneumonia. He was referred to the medical service by the ER PA for management of pneumonia. On examination in the emergency room we found the patient lethargic but oriented dry heaving. He complained of generalized abdominal discomfort. Denied any sick contacts. We requested a d-dimer which returned elevated. We also requested an ABG which showed hypoxia and hypercapnia. General appearance: Well-developed lethargic, not in acute respiratory distress. HEENT: Anicteric, no pallor, pupils equal and reactive. Neck: Supple with no jugular venous distention. Heart: S1-S2 regular with no audible murmur. Lungs: Adequate and symmetric air entry bilaterally with no added sounds. Abdomen: Distended with normal bowel sounds. Soft, generalized tenderness, mild guarding. Fullness in the right upper quadrant. Extremities: No pedal edema. No cyanosis. Skin: Intact EKG showed normal sinus rhythm with no ischemic changes. First troponin was negative. Problems: 1. Acute hypercapnic and hypoxic respiratory failure. 2. Rule out sepsis 3. Transaminitis 4. Substance abuse; urine toxicology positive for methadone 5. Hepatitis C 6. Hypernatremia Plan: -Admit to inpatient General medical service. -Begin patient on BiPAP therapy for his CO2 retention. Repeat blood gas following initiation of therapy. -Bronchodilator therapy with albuterol/Atrovent every 4 hours. -Obtain CT angiogram to rule out pulmonary embolism and further evaluate lung parenchyma to determine cause of his hypercapnia and hypoxia. X-ray is not suggestive of pneumonia although it is possible that patient may have aspirated due to his somnolence. -Patient will be started empirically on IV Rocephin. Recommend CT abdomen and pelvis to rule out infectious intra-abdominal process. If ascites is noted on CT scan would recommend diagnostic paracentesis. -Recommend placing patient on CIWA scale with no coverage for now. -Keep n.p.o. -IV hydration with D5 half-normal saline at 1 25 cc an hour. -Place on sliding scale coverage. -DVT prophylaxis. -Repeat serum chemistry.
[2018-06-07] MEDS ORDERED: GABAPENTIN300 M2 PO (16:49)
--- NOTE | 2018-06-07 19:55 | CT SCAN REPORT ---
EXAMINATION: CT ANGIOGRAM OF THE CHEST WITH CONTRAST (CT PULMONARY ANGIOGRAM FOR PE) CT ABDOMEN PELVIS WITH CONTRAST CLINICAL INFORMATION: Presumptive Dx: sepsis on unknown origin, lactic acidosis, rule out acute hepatitis. Rule out pulmonary embolus. Signs Symptoms: alcoholic, smoker, methadone abuse, leukocytosis, acidosis, smoking history, alcohol history. COMPARISON: CT abdomen pelvis dated 06/05/2017 and chest radiograph dated 12/10/2016. CT chest dated 03/23/2013 TECHNIQUE: Prior to contrast administration, noncontrast localization images were obtained. Subsequently, multidetector volumetric imaging was performed from the thoracic inlet to below the diaphragms following the administration of 94 mL Optiray 320 intravenous contrast during the pulmonary arterial phase of enhancement. Images were then obtained from the diaphragms through the ischial tuberosities during the portal venous phase of enhancement. No contrast reaction reported. Sagittal, coronal, and MIP oblique sagittal reformatted images were obtained on the CT workstation, uploaded to PACS, and reviewed. Total exam dose-length product 1281 and 368 mGy-cm. FINDINGS: Chest: QUALITY OF STUDY/CONTRAST BOLUS: Suboptimal due to poor bolus timing. Contrast material is primarily in the pulmonary veins and systemic arterial system at the time the scan, limiting assessment of the pulmonary arteries. PULMONARY ARTERIES: No central or large lobar/proximal segmental pulmonary emboli. THORACIC AORTA: No aneurysm or dissection. Minimal calcific atherosclerosis. LUNG: Mild dependent atelectasis is present in the upper and lower lobes. Linear opacities at the bases may correspond to pleural parenchymal scarring or linear platelike atelectasis. No focal consolidation. Central airways are clear. No bronchiectasis. PLEURA: No pleural effusion or pneumothorax. MEDIASTINUM: Normal heart size. No pericardial effusion. No hilar or mediastinal lymphadenopathy. No evidence of septal bowing or right heart strain. The esophagus is fluid-filled, consistent with reflux. This extends cephalad to the level of the thoracic inlet. CHEST WALL/AXILLA: No axillary adenopathy. OSSEOUS STRUCTURES: No acute or suspicious osseous abnormality. Multiple old healed left rib fractures are noted. No acute rib fractures are identified. Mild multilevel degenerative disc disease is present in the thoracic spine. No malalignment. ABDOMEN/PELVIS: LIVER, GALLBLADDER, BILIARY TREE: Relative hypoattenuation of the hepatic parenchyma is most consistent with steatosis. A small calcification is present in the right hepatic lobe posteriorly. The liver is normal in size and shape. No focal hepatic lesion or biliary ductal dilatation is present. The gallbladder is unremarkable with no evidence of radiopaque gallstones, gallbladder wall thickening, or obvious pericholecystic inflammatory changes. PANCREAS: Unremarkable. SPLEEN: Unremarkable. ADRENAL GLANDS: Normal. KIDNEYS AND URETERS: The kidneys are normal in size, shape, and attenuation. No hydronephrosis, hydroureter, or calculi seen. No perinephric stranding. BLADDER: Markedly distended. No focal abnormalities. GASTROINTESTINAL TRACT: The stomach is markedly distended and fluid-filled. This fluid propagates proximally in the distal esophagus. There is a tiny hiatal hernia. Small bowel is relatively decompressed. The fluid from the stomach does not progress distal to the duodenal bulb. Small bowel and colon are relatively decompressed. Bowel is normal in thickness without surrounding fat stranding. Appendix is normal. No intraperitoneal free fluid or free air. ABDOMINAL WALL: No significant hernia is appreciated. LYMPHOVASCULAR STRUCTURES: Mild calcific atherosclerosis in abdominal aorta. No aneurysmal dilatation. No adenopathy. PELVIC VISCERA: Prostate gland is enlarged. OSSEOUS STRUCTURES: Mild degenerative disc disease in the lumbar spine. Minimal osteophyte arthritis in the hips and SI joints. There is osteophytic ankylosis of the right SI joint. IMPRESSION: 1. No acute pulmonary findings. Specifically, no evidence of pulmonary embolism. 2. Fluid distention of the stomach with an abrupt transition pointed the gastric pylorus/duodenal bulb. This could be due to decreased gastric motility or gastric outlet obstruction. 3. Reflux of fluid into the esophagus to the level of the thoracic inlet. 4. Prostatomegaly 5. Hepatic steatosis. VTE: negative
--- NOTE | 2018-06-07 22:42 | Sepsis Event Note ---
Sepsis Event Note Severe Sepsis Severe Sepsis Present: Yes Severe Sepsis Actions Taken: Blood Cultures x2, Lactic Acid x2, IV Broad Spectrum Abx, IV Fluids- NS or LR Septic Shock Septic Shock Present: No Event Note Event Note: Patient is 57-year-old with active smoking, significant alcohol consumption, polysubstance abuse recently discharged from inpatient rotation for alcoholism presented to [facility] with acute gastric upset after consuming alcohol. Vital signs at presentation are significant for tachycardia. Physical examination did show mild crackles and significant guarding in the abdomen with tenderness to palpation. Labs did show white count of 24, lactic acidosis, carbon dioxide narcosis on ABG. Possible sepsis secondary to acute gastroenteritis, rule out obstruction/ perforation of bowels. Need to rule out ascites and SBP Sepsis Focused Exam Sepsis Cardiac Exam: Tachycardia Sepsis Resp Exam: CTA Sepsis Cap Refill Exam: <2 Sec Sepsis Peripheral Pulse Exam: Normal Sepsis Peripheral Pulse Location: Dorsalis Pedis Sepsis Skin Exam (color): Normal for Ethnicity Skin Temp/Moisture Exam: Warm/Dry
--- NOTE | 2018-06-08 01:50 | Event Note ---
Event Note Event Note: Called by resident and Dr. Fleming to place NGT for GOO, as no members of medical staff able to place tube. D/w RN, RN placed to R nare, 900cc immediate return brown bilious bile. Pt tolerated well.
[2018-06-08 03:11] VITALS: BP 150/100
[2018-06-08 05:58] VITALS: BP 150/100
[2018-06-08 07:01] VITALS: BP 120/90
--- NOTE | 2018-06-08 07:23 | PN- Housestaff ---
See Addendum Subjective Follow-up For: Respiratory failure, gastric outlet obstruction Complaints: light headedness, nausea Subjective: Patient was seen and examined at the bedside. At the time of interview, nurse was changing out NG tube drainage, which he drained approximately 2 L of green brown nonbilious fluid. Patient was actively receiving BiPAP. Complained only of mild suprapubic pain, 4 out of 10. Review of Systems Constitutional: Reports: no symptoms. Gastrointestinal: Reports: abdominal pain (suprapubic, minor). Objective Last 24 Hrs of Vital Signs/I&O Vital Signs Date Time Temp Pulse Resp B/P B/P Pulse O2 O2 Flow FiO2 Mean Ox Delivery Rate 06/08 1117 95 Nasal 3.0L Cannula 06/08 0844 96 06/08 0800 96 Nasal 3.0L Cannula 06/08 0701 74 120/90 96 BIPAP 06/08 0642 76 92 06/08 0558 98.2 80 20 150/100 94 BIPAP 06/08 0424 83 94 06/08 0311 98.3 80 20 150/100 93 BIPAP 06/08 0136 83 94 06/08 0013 83 95 / 0000 BIPAP 06/07 2155 Nasal 3.0L Cannula 06/07 2132 98.5 88 20 140/88 94 /2006 Nasal 3.0L Cannula 06/07 1927 98.2 94 20 140/100 95 /08 1851 98.6 99 18 148/96 93 Nasal 3.0L Cannula 06/07 1751 98.3 103 18 154/98 / 1742 98.3 103 18 154/98 91 Nasal 3.0L Cannula 06/07 1550 98.3 108 18 150/96 07/08 1545 98.3 108 18 150/96 92 Nasal 3.0L Cannula 06/07 1441 94 Nasal 3.0L Cannula 06/07 1421 98.7 100 18 134/87 07/08 1420 98.7 100 18 134/87 95 Nasal 3.0L Cannula 06/07 1227 98.0 70 20 132/84 07/08 1212 98.0 70 20 132/84 95 Nasal 3.0L Cannula Intake & Output / 1600 / 0800 07/ 0000 Intake Total 1650 500 Output Total 1150 Balance 500 500 Intake, IV 1650 500 Output, 1000 Gastric Drainage Output, Urine 150 Patient 178 lb Weight Weight Reported by Patient Measurement Method Physical Exam General Appearance: Alert, Oriented X3, Cooperative, Mild Distress Skin: No Rashes Skin Temp/Moisture Exam: Warm/Dry HEENT: Atraumatic, PERRLA, EOMI Neck: Supple, No JVD, No thryomegaly Cardiovascular: Regular Rate, Normal S1, Normal S2, No Murmurs Lungs: Clear to Auscultation, Normal Air Movement, on BiPap Abdomen: Soft, distended, 4/10 suprapubic pain Neurological: Normal Speech, Strength at 5/5 X4 Ext, Normal Tone, Sensation Intact Extremities: No Clubbing, No Cyanosis, No Edema, cold upper extremities; no discoloration Assessment/Plan Assessment: 57-year-old male with past medical history significant for hepatitis C, altered LFTs, anxiety/depression, active smoking, alcohol intoxication requiring multiple detoxes, pancreatitis who presented to [facility] with acute onset difficulty in swallowing along with chest and abdominal pain. Patient was recently incarcerated for 10 months following by staying inpatient rehabilitation for 3 months. He was discharged yesterday morning, which point he drank 2-4 beers and took methadone overnight. At that point he started to experience difficulty drinking liquids and solids. CT angiogram ruled out pulmonary embolus. CT abdomen with IV contrast did show fluid distention of the stomach with abrupt transition point for gastric pylorus/duodenal bulb concerning for gastric outlet obstruction. Hepatic steatosis noted. Differential Acute gastritis/gastropathy from alcohol consumption Gastric outlet obstructionruled unlikely by surgery Hypoinflation of lungs secondary to gastric distention compressing the lungs Problem list/plan: Alcohol induced gastrointestinal upset Sepsis in the setting of partial gastric outlet obstruction? Acute hypoxic hypercarbic respiratory failure -TRC/nebs Depression/anxiety Hypothyroidism BPH Diabetes DVT prophylaxis: Subcu Lovenox Patient is full code Problem List: 1. Acute respiratory failure with hypoxia and hypercarbia 2. Diminished gastric emptying Pain Ratin Pain Location: suprapubic abdomen Pain Goal: Pain 4 or less Pain Plan: Zofran to control nausea Tomorrow's Labs & Rationales: cbc to follow possible infection
[2018-06-08 08:58] LABS: ABSOLUTE BASOPHIL COUNT 0 /CUMM (0.0-0.2); ABSOLUTE EOSINOPHIL COUNT 0 /CUMM (0.0-0.7); EOSINOPHIL % 0.1 % (0-5); MEAN CORPUSCULAR HGB 33.9 PG (27.0-31.0); WHITE BLOOD CELL COUNT 13.4 /CUMM (4.8-10.8)
[2018-06-08 09:01] LABS: ABSOLUTE GRANULOCYTE CT 10.6 /CUMM (1.4-6.5); ABSOLUTE LYMPH COUNT 1.7 /CUMM (1.2-3.4); ABSOLUTE MONOCYTE COUNT 1.1 /CUMM (0.10-0.60); BASOPHIL % 0.2 % (0.0-2.0); GRANULOCYTE % 78.9 % (42.2-75.2); MEAN CORPUSCULAR HGB CONC 34.6 G/DL (33.0-37.0); MEAN CORPUSCULAR VOLUME 97.8 FL (80.0-94.0); MEAN PLATELET VOLUME 8.2 FL (7.4-10.4); PLATELET COUNT 167 /CUMM (130-400); RBC DISTRIBUTION WIDTH 13.7 % (11.5-14.5); RED BLOOD CELL CT 4.31 /CUMM (4.70-6.10)
[2018-06-08 09:02] LABS: HEMATOCRIT 42.2 % (42-52)
--- NOTE | 2018-06-08 09:51 | PN- General Surgery ---
Surgical Brief Attending Note Brief Attending Note: Consult to follow. CT images reviewed. Doubt GOO. In addition to gastric distension, there is significant distension of the bladder. Suspect narcotic relationship. Recommend post void residual. Gastric decompression with NG. Upper GI tomorrow.
--- NOTE | 2018-06-08 13:54 | Cons- General Surgery ---
General Information and HPI Consulting Request Date of Consult: 06/08/18 Requested By: Hans CHRISTIANSON,Anita Reason for Consult: GOO History of Present Illness: Patient admitted to medical service with nausea an retching. Methadone intake. Recently completed rehab after incarceration with immediate relapse. NG placed overnight due to dysphagia and distension of stomach seen on CT. Allergies/Medications Allergies: Coded Allergies: NO KNOWN ALLERGIES (NONE 01/06/18) Home Med List: Amitriptyline HCl 50 MG TABLET 1 TAB PO QPM MENTAL HEALTH/SLEEP (Reported) Aripiprazole (Abilify) 10 MG TABLET 1 TAB PO BID MENTAL HEALTH (Reported) Gabapentin 300 MG CAPSULE 1 CAP PO TID PRN DEPRESSION/ANXIETY (Reported) Hydroxyzine HCl (hydrOXYzine HCl) 10 MG TABLET 1 TAB PO PRN ANXIETY (Reported ) Levothyroxine Sodium (Synthroid) (Unknown Strength) TABLET (Unknown Dose) PO DAILY SUPPLEMENT (Reported) Tamsulosin HCl 0.4 MG CAP.ER.24H 1 CAP PO DAILY (Reported) Current Medications: Current Medications Sig/Angel Start time Last Medication Dose Route Stop Time Status Admin Acetaminophen 1,000 MG ONCE ONE 06/07 1445 DC 06/07 N/A 1 UNIT IV 06/07 1459 1444 Acetaminophen 0 .STK-MED ONE 06/07 1445 DC IV Albuterol Sulfate 3 ML Q4-PRN PRN 06/07 2200 AC INH Albuterol Sulfate 3 ML ONCE ONE 06/07 1445 DC 06/07 INH 06/07 1446 1441 Ceftriaxone Sodium 1,000 MG Q24H 06/08 1200 AC 06/08 IV 1244 Cyanocobalamin/ 1 BAG ONCE ONE 06/07 1615 DC 06/07 Thiamine/Pyridoxine IV 06/08 0014 2001 Dextrose/Water 1,000 ML Dextrose/Sodium 1,000 ML Q6H 06/07 1615 AC 06/08 Chloride IV 0258 Heparin Sodium 5,000 UNIT Q8 06/07 2200 AC 06/08 (Porcine) SC 1246 Ipratropium Brea 2.5 ML ONCE ONE 06/07 1445 DC 06/07 INH 06/07 1446 1441 Levothyroxine Sodium 0.05 MG DAILY AC 06/08 0700 AC 06/08 PO 0549 Lorazepam 2 MG Q6 06/07 1800 DC IV Lorazepam 0 .STK-MED ONE 06/07 1738 DC .ROUTE Lorazepam 1 MG Q1P PRN 06/07 1615 DC IV Ondansetron HCl 4 MG ONCE ONE 06/08 0715 DC 06/08 IV 06/08 0716 0714 Ondansetron HCl 4 MG ONCE ONE 06/07 2015 DC PO 06/07 2016 Ondansetron HCl 0 .STK-MED ONE 06/07 1632 DC .ROUTE Ondansetron HCl 4 MG ONCE ONE 06/07 1630 DC 06/07 IV 06/07 1631 1636 Ondansetron HCl 4 MG ONCE ONE 06/07 1445 DC 07/08 IV 06/07 1446 1444 Ondansetron HCl 0 .STK-MED ONE 06/07 1440 DC .ROUTE Pantoprazole Sodium 0 .STK-MED ONE 06/07 1738 DC IV Pantoprazole Sodium 40 MG DAILY 06/07 1633 AC 06/08 IV 0837 Patient Medication 1 ED ONE ONE 06/08 0815 DC 06/08 Teaching ED 06/08 0816 0840 Sodium Chloride 1,000 ML BOLUS ONE 06/07 1615 CAN IV 06/07 1714 Sodium Chloride 1,000 ML BOLUS ONE 06/07 1445 DC 07 IV / 1544 1444 Past History Medical History Blood Transfusion Hx: No Neurological: NONE EENT: NONE Cardiovascular: NONE Respiratory: NONE Gastrointestinal: pancreatitis Hepatic: hepatitis C, ELEVATED LIVER ENZYMES Renal: NONE Musculoskeletal: NONE Psychiatric: anxiety, depression, insomnia, STRESS Endocrine: NONE Blood Disorders: NONE Cancer(s): NONE PRE PRESS OPERATOR/Reproductive: NONE Surgical History Pertinent Surgical History: non-contributory Family History Relations & Conditions If Any: MOTHER FH: diabetes mellitus FHx: stroke FATHER FHx: stroke BROTHER FH: heart attack Psychosocial History Where Do You Live? Home Who Do You Live With? self Services at Home: None Smoking Status: Current Everyday Smoker ETOH Use: heavy use Illicit Drug Use: denies illicit drug use Power of Irrigation Technician/HCP? yes Review of Systems Review of Systems: no cp, no bojorquez, no abd pain. voiding slow. remainder 12 points neg Exam & Diagnostic Data Vital Signs and I&O Vital Signs Date Time Temp Pulse Resp B/P B/P Pulse O2 O2 Flow FiO2 Mean Ox Delivery Rate 06/08 1117 95 Nasal 3.0L Cannula 06/08 0844 96 06/08 0800 96 Nasal 3.0L Cannula 06/08 0701 74 120/90 96 BIPAP 06/08 0642 76 92 / 0558 98.2 80 20 150/100 94 BIPAP 07/ 0424 83 94 07/ 0311 98.3 80 20 150/100 93 BIPAP 07/ 0136 83 94 / 0013 83 95 07/ 0000 BIPAP 06/07 2155 Nasal 3.0L Cannula 06/07 2132 98.5 88 20 140/88 94 06/07 2007 Nasal 3.0L Cannula 06/07 1927 98.2 94 20 140/100 95 / 1851 98.6 99 18 148/96 93 Nasal 3.0L Cannula 06/07 1751 98.3 103 18 154/98 06/07 1742 98.3 103 18 154/98 91 Nasal 3.0L Cannula 06/07 1550 98.3 108 18 150/96 06/07 1545 98.3 108 18 150/96 92 Nasal 3.0L Cannula 06/07 1441 94 Nasal 3.0L Cannula 06/07 1421 98.7 100 18 134/87 08 1420 98.7 100 18 134/87 95 Nasal 3.0L Cannula Intake & Output 06/08 1600 06/08 0800 / 0000 06/07 1600 06/07 0800 06/07 0000 Intake Total 9574 717 4368 Output Total 1150 500 Balance 974 357 3388 Intake, IV 0965 199 0486 Output, 1000 Gastric Drainage Output, Urine 150 500 Patient 178 lb 180 lb Weight Weight Reported by Patient Estimated Measurement Method Physical Exam: gen; nad, looks age and normal habitus HEENT: Anicteric PERRL EOMI Abdomen: Soft nontender nondistended no mass no hernia Last 24 Hours of Labs: Laboratory Tests 06/08 06/08 1045 0753 Blood Gas pH (7.35 - 7.45 PH) 7.35 pCO2 (35 - 45 TORR) 56 H pO2 (80 - 100 TORR) 69 L HCO3 (21 - 28 MEQ/L) 30 H ABG O2 Sat (Measured) (>96.0 %) 91.0 L P-50 (Temp Corrected) N Carboxyhemoglobin (1.5 - 5.0 %) 2.7 O2 Concentration % 3L Temperature (97.0 - 100.0 FARH) 98.2 O2 Delivery Method N/C Chemistry Sodium (137 - 145 mmol/L) 141 Potassium (3.5 - 5.1 mmol/L) 4.0 Chloride (98 - 107 mmol/L) 100 Carbon Dioxide (22 - 30 mmol/L) 34 H Anion Gap (5 - 16) 8 BUN (9 - 20 mg/dL) 14 Creatinine (0.7 - 1.2 mg/dL) 0.8 Estimated GFR (>60 ml/min) > 60 BUN/Creatinine Ratio (7 - 25 %) 17.5 Hematology CBC w Diff NO MAN DIFF REQ WBC (4.8 - 10.8 /CUMM) 13.4 H RBC (4.70 - 6.10 /CUMM) 4.31 L Hgb (14.0 - 18.0 G/DL) 14.6 Hct (42 - 52 %) 42.2 MCV (80.0 - 94.0 FL) 97.8 H MCH (27.0 - 31.0 PG) 33.9 H MCHC (33.0 - 37.0 G/DL) 34.6 RDW (11.5 - 14.5 %) 13.7 Plt Count (130 - 400 /CUMM) 167 MPV (7.4 - 10.4 FL) 8.2 Gran % (42.2 - 75.2 %) 78.9 H Lymphocytes % (20.5 - 51.1 %) 12.9 L Monocytes % (1.7 - 9.3 %) 7.9 Eosinophils % (0 - 5 %) 0.1 Basophils % (0.0 - 2.0 %) 0.2 Absolute Granulocytes (1.4 - 6.5 /CUMM) 10.6 H Absolute Lymphocytes (1.2 - 3.4 /CUMM) 1.7 Absolute Monocytes (0.10 - 0.60 /CUMM) 1.1 H Absolute Eosinophils (0.0 - 0.7 /CUMM) 0 Absolute Basophils (0.0 - 0.2 /CUMM) 0 Miscellaneous Phlebotomy Draw Site RIGHT RADIAL 06/08 06/07 06/07 06/07 0110 2200 1705 1652 Blood Gas pH (7.35 - 7.45 PH) 7.29 *L 7.28 *L pCO2 (35 - 45 TORR) 56 H 53 H pO2 (80 - 100 TORR) 61 L 74 L HCO3 (21 - 28 MEQ/L) 26 24 ABG O2 Sat (Measured) (>96.0 %) 89.0 L 90.0 L P-50 (Temp Corrected) Y Carboxyhemoglobin (1.5 - 5.0 %) 2.6 4.6 O2 Concentration % 30% 3L Temperature (97.0 - 100.0 FARH) 98.5 Respiration Rate (BPM) 22 O2 Delivery Method VISION-FFM N/C Vent Mode ST Expiratory Pressure (CM H2O P) 4 Inspiratory Pressure (CM H2O P) 16 Chemistry Sodium (137 - 145 mmol/L) 143 Potassium (3.5 - 5.1 mmol/L) 5.1 Chloride (98 - 107 mmol/L) 103 Carbon Dioxide (22 - 30 mmol/L) 29 Anion Gap (5 - 16) 11 BUN (9 - 20 mg/dL) 14 Creatinine (0.7 - 1.2 mg/dL) 0.7 Estimated GFR (>60 ml/min) > 60 BUN/Creatinine Ratio (7 - 25 %) 20.0 Lactic Acid (0.7 - 2.1 mmol/L) 1.2 Coagulation D-Dimer High Sensitivty Cancelled Miscellaneous Phlebotomy Draw Site RIGHT RADIAL RIGHT RADIAL 06/07 06/07 1618 1453 Chemistry Lactic Acid Cancelled Toxicology Urine Opiates Screen (>2000 NG/ML) < 100 Methadone Screen (>300 NG/ML) > 735 H Barbiturate Screen (>200 NG/ML) < 60 Ur Phencyclidine Scrn (>25 NG/ML) < 6.00 Amphetamines Screen (>1000 NG/ML) < 100 U Benzodiazepines Scrn (>200 NG/ML) < 85 Urine Cocaine Screen (>300 NG/ML) < 50 Urine Cannabis Screen (>50 NG/ML) < 5.00 Urines Urinalysis LIGHT H Urine Color (YEL,AMB,STR) YEL Urine Clarity (CLEAR) HAZY H Urine pH (5.0 - 8.0) 6.0 Ur Specific [place] (1.001 - 1.035) >= 1.030 Urine Protein (NEG,<30 MG/DL) 30 H Urine Ketones (NEG) 15 H Urine Nitrite (NEG) NEG Urine Bilirubin (NEG) NEG Urine Urobilinogen (0.1 - 1.0 EU/dl) 0.2 Ur Leukocyte Esterase (NEG) NEG Ur Microscopic SEDIMENT EXAMINED Urine RBC (0 - 5 /HPF) 1-3 Urine WBC (0 - 2 /HPF) 10-15 H Ur Epithelial Cells (NONE,FEW) FEW Urine Bacteria (NEG/NONE) MOD H Hyaline Casts (0/LPF) 10-15 H Granular Casts (NONE /LPF) 15-25 H Urine Mucus (FEW,NONE) FEW Urine Hemoglobin (NEG) LARGE H Urine Glucose (N MG/DL) NEG Imaging Results: CT scan of the abdomen pelvis was personally reviewed. The finding show a distended stomach with small amount of liquid in distal esophagus. There is distention of the bladder Assessment/Plan Assessment/Plan Patient with recent relapse of alcohol and methadone abuse after completing rehabilitation. Symptoms of retching and dysphasia related to distention of the stomach. Findings on CT scan are that of gastric distention and bladder distention. Both are likely related to narcotic ingestion. Nasogastric decompression has been performed. Recommend observation today followed by upper GI series tomorrow. If there is no obstruction seen on imaging, nasogastric tube can be discontinued and diet reinstated. In regards to his bladder, recommend postvoid residual. Consider Christina catheterization. Consult Acknowledgment - Thank you for your consult request.
[2018-06-08 13:56] VITALS: BP 120/60
--- NOTE | 2018-06-08 16:17 | RADIOLOGY REPORT ---
EXAMINATION: FL UPPER GI SERIES CLINICAL INFORMATION: Retained fluid in stomach. Evaluate for gastric outlet obstruction. COMPARISON: CT images of the abdomen from 06/07/2018. TECHNIQUE: A single contrast upper GI series with fluoroscopy and spot imaging was performed. A total of 60 mL of Gastroview contrast was instilled into the NG tube. The patient was evaluated in upright and recumbent positions. FLUOROSCOPY TIME: 1 minute, 8 seconds NUMBER OF IMAGES: 10 images FINDINGS: A spot image centered on the esophagus was acquired prior to contrast injection. The side-port of the NG tube was located in the distal esophagus just above the level of the esophagogastric junction, and the tip of the tube was in the region of the gastric fundus. After injection of the Gastroview contrast through the NG tube, the contrast filled the proximal stomach and esophagus esophagus (likely due to the position of the side-port above the esophagogastric junction). No evidence of distal esophageal stricture or esophageal mass. The patient was then placed in a supine and right lateral decubitus position. In the decubitus position, there was no delay in contrast passage into the gastric antrum and duodenum. The gastric rugal fold thickness was normal. The duodenal mucosal fold pattern was normal. No evidence of a fixed duodenal filling defect or stricture. IMPRESSION: Upper gastrointestinal series performed with Gastroview contrast shows normal appearance of the stomach and duodenum. No evidence of gastric outlet obstruction.
[2018-06-08 21:00] VITALS: BP 138/80
[2018-06-09 01:00] VITALS: BP 136/84
--- NOTE | 2018-06-09 06:42 | PN- Housestaff ---
See Addendum Jesus Gaming 06/09/18 0641: Subjective Follow-up For: gastric obstruction Complaints: still feels "a little shaky" Subjective: Patient was seen and examined at the bedside. Overnight patient removed his own NG tube; surgery was notified and said this was acceptable. Only stated very mild pain suprapubically. No other complaints. Review of Systems Constitutional: Reports: no symptoms. Objective Last 24 Hrs of Vital Signs/I&O Vital Signs Date Time Temp Pulse Resp B/P B/P Pulse O2 O2 Flow FiO2 Mean Ox Delivery Rate 06/09 1357 98.0 82 18 118/80 96 Nasal 1.0L Cannula 06/09 0800 Nasal 3.0L Cannula 06/09 0659 98.3 77 20 110/74 92 Nasal 3.0L Cannula 06/09 0100 98.8 91 20 136/84 93 Nasal 3.0L Cannula 06/09 0000 Nasal 3.0L Cannula 06/08 2100 99.0 73 20 138/80 95 Nasal 2.5L Cannula Intake & Output 06/09 1600 06/09 0800 06/09 0000 Intake Total 1000 500 Output Total 800 200 275 Balance -800 800 225 Intake, IV 1000 500 Output, Urine 800 200 275 Patient 197 lb Weight Physical Exam General Appearance: Alert, Oriented X3, Cooperative, No Acute Distress Skin: No Rashes, No Breakdown Skin Temp/Moisture Exam: Warm/Dry HEENT: Atraumatic, PERRLA, EOMI Neck: Supple, No JVD, No thryomegaly, +2 Carotid Pulse wo Bruit Cardiovascular: Regular Rate, Normal S1, Normal S2, No Murmurs Lungs: Clear to Auscultation, Normal Air Movement Abdomen: Normal Bowel Sounds, Soft, No Hepatospenomegaly, No Masses, mild tenderness in suprapubic area Neurological: Normal Gait, Normal Speech, Strength at 5/5 X4 Ext, Normal Tone, Sensation Intact Extremities: No Clubbing, No Cyanosis, No Edema Assessment/Plan Assessment: 57-year-old male with past medical history significant for hepatitis C, altered LFTs, anxiety/depression, active smoking, alcohol intoxication requiring multiple detoxes, pancreatitis who presented to [place] with acute onset difficulty in swallowing along with chest and abdominal pain. Patient was recently incarcerated for 10 months following by staying inpatient rehabilitation for 3 months. He was discharged yesterday morning, which point he drank 2-4 beers and took methadone overnight. At that point he started to experience difficulty drinking liquids and solids. CT angiogram ruled out pulmonary embolus. CT abdomen with IV contrast did show fluid distention of the stomach with abrupt transition point for gastric pylorus/duodenal bulb concerning for gastric outlet obstruction. Hepatic steatosis noted. Overnight patient removed his NG tube, which surgery ok'ed post facto. Plan is to advance diet as tolerated and allow patient to leave tomorrow. Problem list/plan: Alcohol induced gastrointestinal upset Acute hypoxic hypercarbic respiratory failure -TRC/nebs Depression/anxiety Hypothyroidism BPH Diabetes DVT prophylaxis: Subcu Lovenox Patient is full code Problem List: 1. Diminished gastric emptying 2. Acute respiratory failure with hypoxia and hypercarbia Pain Ratin Pain Location: suprapubic abdomen Pain Goal: Remain pain free Pain Plan: Tylenol as needed, Zofran to control nausea Tomorrow's Labs & Rationales: none Discharge Plan Discharge Disposition: home Stable for Discharge? No Anticipated Discharge (Day): tomorrow Hans,Jaycekristie 06/09/18 1158: Attending MD Review Statement Attending Statement Attending MD Statement: examined this patient, discuss w/resident/PA/TEACHERS' AIDE, agreed w/resident/PA/TEACHERS' AIDE, discussed with family, reviewed EMR data (avail), discussed with nursing, discussed with case mgmt, reviewed images, amended to note Attending Assessment/Plan: Patient seen/examined bedside. Patient NGT is removed with improvement in abdominal distension and obstruction. General surgery consulted and recommend advance diet as tolerated, upper GI series negative. Surgery suspects narcotics playing a role in his symptoms. Alcohol intoxication on admission: NITISH 88 on arrival. Monitor CIWA and ativan prn only. Angelo monitor hemodynacmis. hypothyroidism continue home meds. Discharge planning, as pateint continues to improve clinically and able to tolerate diet. Next 24-48 hrs. gi/dvt prophyalxis full code.
[2018-06-09 06:59] VITALS: BP 110/74
--- NOTE | 2018-06-09 07:42 | Patient Discharge Instructions ---
Discharge Instructions General Discharge Information Special Instructions: - Please follow up with your primary care physician within 1-2 weeks of discharge. Inform your primary care physician of this admission to [facility]. - Continue your current medications per discharge instructions. - Please watch for these problems: Fever, Chills, Nausea, Vomiting, Shortness of Breath, Productive Cough, Chest Pain/Discomfort, Abdominal Pain, Active Bleeding or Bloody urine/stool. Diet Continue normal diet: Yes Activity Full Activity/No Limits: Yes Acute Coronary Syndrome Inclusion Criteria At DC or during hospital stay patient has or had the following: ACS DIAGNOSIS No Discharge Core Measures Meds if any: Prescribed or Continued at Discharge Meds if any: NOT Prescribed or Continued at Discharge Congestive Heart Failure Inclusion Criteria At DC or during hospital stay patient has or had the following: CHF DIAGNOSIS No Discharge Core Measures Meds if any: Prescribed or Continued at Discharge Meds if any: NOT Prescribed or Continued at Discharge Cerebrovascular accident Inclusion Criteria At DC or during hospital stay patient has or had the following: CVA/TIA Diagnosis No Discharge Core Measures Meds if any: Prescribed or Continued at Discharge Meds if any: NOT Prescribed or Continued at Discharge Venous thromboembolism Inclusion Criteria VTE Diagnosis No VTE Type NONE VTE Confirmed by (Test) NONE Discharge Core Measures - Per Current guidelines, there needs to be overlap - treatment for the first 5 days of Warfarin therapy. - If discharged on Warfarin prior to 5 days of - overlap therapy, the patient will need to be - assessed for post discharge needs including - *Post discharge parental anticoagulation - *Warfarin and/or parental anticoagulation education - *Follow up date to check INR post discharge At least 5 days overlap therapy as Inpatient No Meds if any: Prescribed or Continued at Discharge Note: Overlap Therapy is Warfarin and Anticoagulant Meds if any: NOT Prescribed or Continued at Discharge
[2018-06-09 08:22] LABS: ABSOLUTE BASOPHIL COUNT 0 /CUMM (0.0-0.2); ABSOLUTE EOSINOPHIL COUNT 0.1 /CUMM (0.0-0.7); ABSOLUTE GRANULOCYTE CT 7.7 /CUMM (1.4-6.5); ABSOLUTE LYMPH COUNT 1.6 /CUMM (1.2-3.4); ABSOLUTE MONOCYTE COUNT 0.9 /CUMM (0.10-0.60); BASOPHIL % 0.4 % (0.0-2.0); GRANULOCYTE % 74.7 % (42.2-75.2); HEMATOCRIT 40.5 % (42-52); MEAN CORPUSCULAR HGB 33.7 PG (27.0-31.0); MEAN CORPUSCULAR HGB CONC 34.5 G/DL (33.0-37.0); MEAN CORPUSCULAR VOLUME 97.5 FL (80.0-94.0); MEAN PLATELET VOLUME 8.7 FL (7.4-10.4); PLATELET COUNT 140 /CUMM (130-400); RBC DISTRIBUTION WIDTH 13.4 % (11.5-14.5); RED BLOOD CELL CT 4.16 /CUMM (4.70-6.10); WHITE BLOOD CELL COUNT 10.3 /CUMM (4.8-10.8)
--- NOTE | 2018-06-09 08:38 | PN- General Surgery ---
Surgical Brief Attending Note Brief Attending Note: upper gi reviewed. ng can be removed and diet started. call with questions.
[2018-06-09 13:57] VITALS: BP 118/80; BP 120/70
[2018-06-09 22:00] VITALS: BP 130/80
[2018-06-09 22:46] VITALS: BP 130/80
[2018-06-10] VITALS (10 sets, daily range): BP systolic 110–158; BP diastolic 60–80
--- NOTE | 2018-06-10 06:53 | PN- Housestaff ---
Jesus Gaming 06/10/18 0653: Subjective Follow-up For: Presumed gastric outlet obstruction Complaints: lightheaded Subjective: Patient was seen and examined at the bedside. Patient appeared mildly uncomfortable, and minimally responsive but not lethargic. patient stated he was sleepy. Patient complained of minimal suprapubic pain. When asked about discharge, patient stated he did not feel steady enough to be discharged at this time. Review of Systems Constitutional: Reports: no symptoms. Gastrointestinal: Reports: abdominal pain (mild suprapubic). Objective Last 24 Hrs of Vital Signs/I&O Vital Signs Date Time Temp Pulse Resp B/P B/P Pulse O2 O2 Flow FiO2 Mean Ox Delivery Rate 06/10 1204 94 Room Air 06/10 1200 98.0 87 20 118/70 06/10 0800 Room Air 06/10 0800 97.8 67 18 142/70 06/10 0617 98.5 64 20 146/80 92 Nasal 1.0L Cannula 06/10 0613 98.5 64 20 146/80 06/10 0200 98.5 65 20 140/80 06/10 0000 92 Nasal 1.5L Cannula 06/09 2246 98.5 65 20 130/80 92 06/09 2200 98.5 65 20 130/80 06/09 1936 94 Nasal 1.0L Cannula 06/09 1600 Nasal 2.0L Cannula Intake & Output 06/10 1600 06/10 0800 06/10 0000 Intake Total 1000 1355 Output Total Balance 1000 1355 Intake, IV 1000 875 Intake, Oral 480 Number 1 Bowel Movements Patient 197 lb Weight Physical Exam General Appearance: Alert, Oriented X3, No Acute Distress, minimally cooperative , stated he was sleepy Skin: No Rashes, No Breakdown Skin Temp/Moisture Exam: Warm/Dry HEENT: Atraumatic, PERRLA, EOMI Neck: Supple, No JVD, No thryomegaly Cardiovascular: Regular Rate, Normal S1, Normal S2, No Murmurs Lungs: Clear to Auscultation, Normal Air Movement Abdomen: Soft, No Tenderness, No Hepatospenomegaly Neurological: Normal Gait, Normal Speech, Strength at 5/5 X4 Ext, Normal Tone Extremities: No Clubbing, No Cyanosis, No Edema Assessment/Plan Assessment: 57-year-old male with past medical history significant for hepatitis C, altered LFTs, anxiety/depression, active smoking, alcohol intoxication requiring multiple detoxes, pancreatitis who presented to [place] with acute onset difficulty in swallowing along with chest and abdominal pain. Patient was recently incarcerated for 10 months following by staying inpatient rehabilitation for 3 months. He was discharged yesterday morning, which point he drank 2-4 beers and took methadone overnight. At that point he started to experience difficulty drinking liquids and solids. CT angiogram ruled out pulmonary embolus. CT abdomen with IV contrast did show fluid distention of the stomach with abrupt transition point for gastric pylorus/duodenal bulb concerning for gastric outlet obstruction. Hepatic steatosis noted. Overnight patient removed his NG tube, which surgery ok'ed post facto. Plan is to advance diet as tolerated and allow patient to leave tomorrow. Problem list/plan: Alcohol/Narcotic induced gastrointestinal upset impending alcohol withdrawal reason for continued hospitalization process Acute hypoxic hypercarbic respiratory failure -TRC/nebs as needed Depression/anxiety Hypothyroidism BPH Diabetes DVT prophylaxis: Subcu Lovenox Patient is full code Problem List: 1. Diminished gastric emptying 2. ALCOHOL WITHDRAWAL Pain Ratin Pain Location: suprapubic Pain Goal: Remain pain free Pain Plan: conservative management Tomorrow's Labs & Rationales: KARLIE OatesAnita mauricio 06/10/18 1203: Attending MD Review Statement Attending Statement Attending MD Statement: examined this patient, discuss w/resident/PA/BALL ASSEMBLER, agreed w/resident/PA/BALL ASSEMBLER, discussed with family, reviewed EMR data (avail), discussed with nursing, discussed with case mgmt, reviewed images, amended to note Attending Assessment/Plan: Patient feels light headed this morning. Denies hallucinations. He has feeling of his impending alcohol withdrawal. He was intoxicatd on admission with NITISH 88. Thereafter he is tolerating his diet as his condition improved with negative upper GI series and NGT removal. Will watch him on CIWA monitoring and ativan as per CIWA. Thiamine, folic acid. Monitor electrolytes. Monitor hemodynamcis. Gi/ dvt prophyalxis Full code.
--- NOTE | 2018-06-10 08:23 | Discharge Summary ---
Visit Information Visit Dates Admission Date: 06/07/18 Discharge Date: 06/11/18 Hospital Course Course Attending Physician: Anita Maxwell MD Primary Care Physician: Ricky Palacios APRN Hospital Course: 57-year-old male with past medical history significant for hepatitis C, altered LFTs, anxiety/depression, active smoking, alcohol intoxication requiring multiple detoxes, pancreatitis who presented to [facility] with acute onset difficulty in swallowing along with chest and abdominal pain. Patient was recently incarcerated for 10 months following by staying inpatient rehabilitation for 3 months. He was discharged yesterday morning, which point he drank 2-4 beers and took methadone overnight. At that point he started to experience difficulty drinking liquids and solids. CT angiogram ruled out pulmonary embolus. CT abdomen with IV contrast did show fluid distention of the stomach with abrupt transition point for gastric pylorus/duodenal bulb concerning for gastric outlet obstruction. Hepatic steatosis noted. One day prior to discharge, patient removed his NG tube, which surgery ok'ed post facto.Patient's diet was advanced as tolerated, and orthostatic vitals showed not hypotension. Patient was discharged home self care. Vitals on admission: Afebrile 97.2, RR 20, HR 95, BP 143/87, O2 92% on 3L Labs on admission: Lactic acid 2.6; urine screen positive for methadone; WBC 24.0 (leukocytotic) Allergies: Coded Allergies: NO KNOWN ALLERGIES (NONE 01/06/18) Pertinent Lab Results: SERVICE DATE: 06/07/18 EXAM TYPE: RAD - XRY-PORTABLE CHEST XRAY IMPRESSION: 1. Lungs are hypoinflated. 2. No evidence of pneumonia or pleural effusion. SERVICE DATE: 06/07/18 EXAM TYPE: CAT - CT ABD & PELVIS W IV CONTRAST; CTA CHEST-PULMONARY EMBOLISM IMPRESSION: 1. No acute pulmonary findings. Specifically, no evidence of pulmonary embolism. 2. Fluid distention of the stomach with an abrupt transition pointed the gastric pylorus/duodenal bulb. This could be due to decreased gastric motility or gastric outlet obstruction. 3. Reflux of fluid into the esophagus to the level of the thoracic inlet. 4. Prostatomegaly 5. Hepatic steatosis. VTE: negative SERVICE DATE: 06/08/18 EXAM TYPE: RAD - XRY-UPPER GI SERIES IMPRESSION: Upper gastrointestinal series performed with Gastroview contrast shows normal appearance of the stomach and duodenum. No evidence of gastric outlet obstruction. Disposition Summary Disposition Principal Diagnosis: Diminished gastric emptying Additional Diagnosis: Acute respiratory failure Hypothyroidism Depression/anxiety Diabetes BPH Discharge Disposition: home or self care Discharge Instructions General Discharge Information Code Status: Full Code Patient's Diet: Regular Patient's Activity: As tolerated Follow-Up Instructions/Appts: - Please follow up with your primary care physician within 1-2 weeks of discharge. Inform your primary care physician of this admission to [facility]. - Continue your current medications per discharge instructions. - Please watch for these problems: Fever, Chills, Nausea, Vomiting, Shortness of Breath, Productive Cough, Chest Pain/Discomfort, Abdominal Pain, Active Bleeding or Bloody urine/stool. Medications at Discharge Discharge Medications: Continue taking these medications: Aripiprazole (Abilify) 10 MG TABLET 1 Tablet ORAL TWICE DAILY Comments: NOT GIVEN Amitriptyline HCl (Amitriptyline HCl) 50 MG TABLET 1 Tablet ORAL Every night Qty = 30 Comments: NOT GIVEN Tamsulosin HCl (Tamsulosin HCl) 0.4 MG CAP.ER.24H 1 Capsule ORAL DAILY Qty = 30 Comments: NOT GIVEN Levothyroxine Sodium (Synthroid) (Unknown Strength) TABLET Unknown Dose ORAL DAILY Comments: Last Taken:06/11/18 Time:6AM Hydroxyzine HCl (hydrOXYzine HCl) 10 MG TABLET 1 Tablet ORAL as needed for ANXIETY Qty = 90 Comments: NOT GIVEN Gabapentin (Gabapentin) 300 MG CAPSULE 1 Capsule ORAL THREE TIMES DAILY as needed for DEPRESSION/ANXIETY Comments: NOT GIVEN Copies To: Ricky Palacios APRN
[2018-06-11 06:42] VITALS: BP 138/82
--- NOTE | 2018-06-11 06:50 | PN- Housestaff ---
Jesus Gaming 06/11/18 0650: Subjective Follow-up For: Abdominal pain Complaints: light headedness Subjective: Patient was seen and examined at the bedside. No acute events overnight. Scored 0 consistently overnight. Complains this morning only of remaining lightheadness on standing and walking to the toilet. Still endorses mild pain in suprapubic abdomen. Review of Systems Constitutional: Reports: no symptoms. Gastrointestinal: Reports: abdominal pain (suprapubic). Neurological/Psychological: Reports: see HPI. Objective Last 24 Hrs of Vital Signs/I&O Vital Signs Date Time Temp Pulse Resp B/P B/P Pulse O2 O2 Flow FiO2 Mean Ox Delivery Rate 06/11 0642 98.3 71 20 138/82 91 Room Air 06/10 2157 98.6 80 20 142/70 92 06/10 1800 99.3 83 16 158/70 06/10 1600 99.3 83 16 158/70 06/10 1520 99.3 83 16 158/70 95 Room Air 06/10 1204 94 Room Air 06/10 1200 98.0 87 20 118/70 Intake & Output 06/11 1600 12 0800 06/11 0000 Intake Total 200 200 Output Total Balance 200 200 Intake, Oral 200 200 Physical Exam General Appearance: Alert, Oriented X3, Cooperative, No Acute Distress Skin: No Rashes, No Breakdown Skin Temp/Moisture Exam: Warm/Dry HEENT: Atraumatic, PERRLA, EOMI Neck: Supple, No JVD, No thryomegaly, +2 Carotid Pulse wo Bruit Cardiovascular: Regular Rate, Normal S1, Normal S2, No Murmurs Lungs: Clear to Auscultation, Normal Air Movement Abdomen: Soft, No Tenderness, No Hepatospenomegaly Neurological: borderline positive romberg; presumed to be due to orthostasis Extremities: No Clubbing, No Cyanosis, No Edema Assessment/Plan Assessment: 57-year-old male with past medical history significant for hepatitis C, altered LFTs, anxiety/depression, active smoking, alcohol intoxication requiring multiple detoxes, pancreatitis who presented to [facility] with acute onset difficulty in swallowing along with chest and abdominal pain. Patient was recently incarcerated for 10 months following by staying inpatient rehabilitation for 3 months. He was discharged yesterday morning, which point he drank 2-4 beers and took methadone overnight. At that point he started to experience difficulty drinking liquids and solids. CT angiogram ruled out pulmonary embolus. CT abdomen with IV contrast did show fluid distention of the stomach with abrupt transition point for gastric pylorus/duodenal bulb concerning for gastric outlet obstruction. Hepatic steatosis noted. Overnight patient removed his NG tube, which surgery ok'ed post facto. Plan is to advance diet as tolerated and allow patient to leave today after checking orthostatic vital signs. Problem list/plan: Alcohol/Narcotic induced gastrointestinal upset impending alcohol withdrawal reason for continued hospitalization process Acute hypoxic hypercarbic respiratory failure -TRC/nebs as needed Depression/anxiety Hypothyroidism BPH Diabetes DVT prophylaxis: Subcu Lovenox Patient is full code Problem List: 1. Diminished gastric emptying 2. Acute respiratory failure with hypoxia and hypercarbia Pain Ratin Pain Location: suprapubic abdomen Pain Goal: Remain pain free Pain Plan: none in place Tomorrow's Labs & Rationales: none, discharged Anita Maxwell 06/11/18 1043: Attending MD Review Statement Attending Statement Attending MD Statement: examined this patient, discuss w/resident/PA/SEAT PACK INSPECTOR, agreed w/resident/PA/SEAT PACK INSPECTOR, discussed with family, reviewed EMR data (avail), discussed with nursing, discussed with case mgmt, reviewed images, amended to note Attending Assessment/Plan: Patient feels no new complaints. Orthostats f/u. His CIWA monitoring score is zero. Thiamine, folic acid. SW appreciated. Patient is medically stable for discharge if orthostats negative. Anticipate discharge soon.
== END 2018-06-11 11:40 | DRG 133 ==
LOC: ERH 09:38 → 2NA 15:54 → ERHI 15:54 → ENRESERV 16:18 → ENTRNSPT 18:09 → EDTRNSPTSTS 18:18 → 2NA 18:53 → CMPTRNSPT 18:57 → 2NA 06-08 07:39 → ENPENDDIS 06-11 11:36 → 2NA 06-11 11:40
PROVIDERS: General Practice; Internal Medicine; Physician Assistant
PROC: 5A09457 Assistance with Respiratory Ventilation, 24-96 Consecutive Hours, Continuous Positive Airway Pressure (ICD-10-PCS; principal; 2018-06-07)
DX: J96.01 Acute respiratory failure with hypoxia (principal); K31.1 Adult hypertrophic pyloric stenosis; E87.2 Acidosis; E87.0 Hyperosmolality and hypernatremia; K29.20 Alcoholic gastritis without bleeding; K76.0 Fatty (change of) liver, not elsewhere classified; E03.9 Hypothyroidism, unspecified; F17.200 Nicotine dependence, unspecified, uncomplicated; J96.02 Acute respiratory failure with hypercapnia; B18.2 Chronic viral hepatitis C; N40.0 Benign prostatic hyperplasia without lower urinary tract symptoms; F41.9 Anxiety disorder, unspecified; F10.229 Alcohol dependence with intoxication, unspecified; F32.9 Major depressive disorder, single episode, unspecified
CPT/HCPCS: 2NASP; 36592; 71045; 74177; 74240; 80307; 81001; 82436; 87040; 87086; 93005; 93010; 96361; 96374; 96375; 96376; 99291; G0480; J0131; J0696; J1644; J2405; J3101; J3490; J7042; J7060

== ENCOUNTER 2018-07-09 09:05 | Inpatient (IN) | payer OTHER ==
[~2018-07-09] VITALS: Ht 177.8 cm; Wt 75.1 kg
[2018-07-09] VITALS (7 sets, daily range): BP systolic 110–132; BP diastolic 70–98
[~2018-07-09 09:05] MED LIST changes: +AMITRIPTYLINE H50 M2 PO; +HYDROXYZINE HCL10 M2 PO; +NEURONTIN300 M1 PO
--- NOTE | 2018-07-09 09:30 | ED PSYCHIATRIC COMPLAINT ---
History of Present Illness General Chief Complaint: Psychiatric Related Complaint Stated Complaint: BIBA ETOH, +SI Source: patient Exam Limitations: no limitations Vital Signs & Intake/Output Vital Signs & Intake/Output Vital Signs Date Time Temp Pulse Resp B/P B/P Pulse O2 O2 Flow FiO2 Mean Ox Delivery Rate 07/13 1201 81 126/93 07/13 0807 97.1 82 116/85 07/13 0803 97.6 74 116/85 07/12 1957 96.7 93 127/86 07/12 1954 96.7 93 127/86 07/12 1651 74 134/82 Allergies Coded Allergies: NO KNOWN ALLERGIES (NONE 01/06/18) Reconcile Medications Amitriptyline HCl 50 MG TABLET 1 TAB PO QPM MENTAL HEALTH/SLEEP (Reported) Aripiprazole (Abilify) 10 MG TABLET 1 TAB PO BID MENTAL HEALTH (Reported) Gabapentin 300 MG CAPSULE 1 CAP PO TID PRN DEPRESSION/ANXIETY (Reported) Hydroxyzine HCl (hydrOXYzine HCl) 10 MG TABLET 1 TAB PO PRN ANXIETY (Reported ) Levothyroxine Sodium (Synthroid) (Unknown Strength) TABLET 50 MCG PO DAILY HYPOTHYROID (Reported) Tamsulosin HCl 0.4 MG CAP.ER.24H 1 CAP PO DAILY (Reported) Triage Note: BROUGHT IN BY AMBULACE. STATES HAS BEEN DRINKING. +SI WITH PLAN TO HANG SELF WITH BELT OR JUMP IN FRONT OF TRAIN. ON PEER. Triage Nurses Notes Reviewed? yes Onset: Abrupt HPI: 57yo intoxicated male with PMH of depression, hepatitis C, pancreatitis c/o suicidal ideation and plan. Pt was incarcerated for domestic violence and is currently on probation. Pt was d/c from rehab about 4 weeks ago. Pt relapsed and has been drinking beer. Admits to smoking cigars, cigarettes, and marijuana. Pt was being treated for his depression with several medications including Abilify and gabapentin, but stopped taking them because he "is depressed and wants to ". Pt has belt and plan to commit suicide. This morning, pt called hotline and was brought into the hospital. Pt continues to say that he has "nothing to live for", "wants to ", and "is depressed." Pt admits to having an alcohol problem. Pt lives on his own. Pt does not have any social support and has not talked to his only son in 6 years. Pt currently denies any fevers, chills, nausea, vomiting, chest pain, abdominal pain, numbness/tingling. (Jhonny Norwood) Past History Travel History Traveled to [place] past 21 day No Medical History Neurological: NONE EENT: NONE Cardiovascular: NONE Respiratory: NONE Gastrointestinal: pancreatitis Hepatic: hepatitis C, ELEVATED LIVER ENZYMES Renal: NONE Musculoskeletal: NONE Psychiatric: anxiety, depression, insomnia, STRESS Endocrine: NONE Blood Disorders: NONE Cancer(s): NONE RURAL ELECTRIFICATION ENGINEER/Reproductive: NONE History of MRSA: No History of VRE: No History of CDIFF: No Tetanus Vaccine: 07/05/17 Surgical History Surgical History: non-contributory Psychosocial History Who do you live with Other (see notes) Services at Home None What is your primary language Malay Tobacco Use: Current Daily Use Daily Tobacco Use Amount/Type: => 5 Cigarettes daily ETOH Use: alcoholic Illicit Drug Use: denies illicit drug use Family History Family History, If Any: MOTHER FH: diabetes mellitus FHx: stroke FATHER FHx: stroke BROTHER FH: heart attack (Jhonny Norwood) Medical History Any Pertinent Medical History? see below for history Family History Hx Contributory? No (Bret Walker MD) Review of Systems Review of Systems Constitutional: Reports: see HPI. EENTM: Reports: see HPI. Respiratory: Reports: see HPI. Cardiovascular: Reports: see HPI. GI: Reports: see HPI. Genitourinary: Reports: see HPI. Musculoskeletal: Reports: see HPI. Skin: Reports: see HPI. Neurological/Psychological: Reports: see HPI. Hematologic/Endocrine: Reports: see HPI. Immunologic/Allergic: Reports: see HPI. All Other Systems: Reviewed and Negative (Jhonny Norwood) Physical Exam Physical Exam General Appearance: anxious, lethargic, intoxicated Head: atraumatic, normal appearance Eyes: Bilateral: EOMI, other (erythematous conjunctiva ). Ears, Nose, Throat: normal pharynx, normal ENT inspection, hearing grossly normal Neck: normal inspection, supple, full range of motion Respiratory: chest non-tender, no respiratory distress, lungs clear, wheezing ( upper lobes) Cardiovascular: regular rate/rhythm Gastrointestinal: normal bowel sounds, soft, non-tender Extremities: normal range of motion Neurological/Psychiatric: agitated, anxious, depressed affect, depressed, +SI Appearance/Memory/Insight: disheveled, impaired insight Behavoir/Eye Contact/Speech: cooperative, normal speech, good eye contact Thoughts/Hallucinations: normal thought pattern, paranoid Skin: intact, normal color, warm/dry SAD PERSONS SAD PERSONS Response Value Male Sex? yes 1 Age <19 or >45 years? yes 1 Depression/Hopelessness? yes 2 Excessive Ethanol/Drug Use? yes 1 Rational Thinking Loss? yes 2 Single//? yes 1 Social Support? has no support 1 Stated Future Intent? yes 2 Total 11 (Jhonny Norwood) SAD PERSONS Done? yes (Bret Walker MD) Progress Differential Diagnosis: dementia, drug intoxication, drug overdose, drug withdrawal Plan of Care: Current Medications Sig/Angel Start time Last Medication Dose Stop Time Status Admin Lorazepam 0.5 MG ONCE ONE 07/13 1800 CAN (Ativan) 07/13 1801 Gabapentin 600 MG Q4 HRS NEEDED PRN 07/10 1230 AC 07/13 (Neurontin) 1212 Al Hydroxide/Mg 30 ML Q4-6 PRN PRN 07/10 1015 AC Hydroxide (Maalox Plus) Albuterol Sulfate 2 PUF Q6P PRN 07/10 1015 AC (Ventolin) Ibuprofen 400 MG Q6P PRN 07/10 1015 AC (Motrin) Lorazepam 2 MG Q2P PRN 07/10 1015 AC (Ativan) Lorazepam 1 MG Q2P PRN 07/10 1015 AC 07/11 (Ativan) 1959 Magnesium Hydroxide 30 ML AT BEDTIME NEED.. 07/10 1015 AC (Milk Of Magnesia) Nicotine 2 MG Q2P PRN 07/10 1015 AC (Nicotine) Aripiprazole 5 MG DAILY 07/10 1010 AC 07/13 (Abilify) 0805 Levothyroxine Sodium 0.05 MG DAILY AC 07/10 1010 AC 07/13 (Synthroid) 0625 Hand-Off Endorsed To: Greg Harrell MD (Jhonny Norwood) Hand-Off Endorsed To: Raj Gilliland MD Endorsed Time: 0700 Pending: consult (Bret Walker MD) Initial ED EKG: NSR, nonspecific ST T wave chg Prior EKG: unchanged (Raj Gilliland MD) Departure Departure Condition: Stable Referrals: Ricky Plaacios APRN (PCP/Family) Departure Forms: Customer Survey General Discharge Information (Jhonny Norwood) Departure Disposition: STILL A PATIENT Clinical Impression Primary Impression: Depression with suicidal ideation Secondary Impressions: Alcohol intoxication delirium PA/SUPERVISOR ELECTRONICS PROCESSING Co-Sign Statement Statement: ED Attending supervision documentation- x I saw and evaluated the patient. I have also reviewed all the pertinent lab results and diagnostic results. I agree with the findings and the plan of care as documented in the PA's/SUPERVISOR ELECTRON[employer] PROCESSING's documentation. [] I have reviewed the ED Record and agree with the PA's/SUPERVISOR ELECTRONICS PROCESSING's documentation. [] Additions or exceptions (if any) to the PAs/SUPERVISOR ELECTRONICS PROCESSING's note and plan are summarized below: [] (Denise CHRISTIANSON,Bret) Psych Admission Note Psychiatric Admission: I have seen and evaluated BONNIE BARAHONA. I have also reviewed all the pertinent lab results and diagnostic results. BONNIE BARAHONA will be admitted to our inpatient Psychiatric unit for treatment and care. PA/SUPERVISOR ELECTRON[employer] PROCESSING Co-Sign Statement Statement: ED Attending supervision documentation- [X] I saw and evaluated the patient. I have also reviewed all the pertinent lab results and diagnostic results. I agree with the findings and the plan of care as documented in the PA's/SUPERVISOR ELECTRON[employer] PROCESSING's documentation. X] I have reviewed the ED Record and agree with the PA's/SUPERVISOR ELECTRONICS PROCESSING's documentation. [] Additions or exceptions (if any) to the PAs/SUPERVISOR ELECTRONICS PROCESSING's note and plan are summarized below: [PT TO BE ADMITTED TO [facility]] (Raj Gilliland MD) X] I have reviewed the ED Record and agree with the PA's/SUPERVISOR ELECTRON[employer] PROCESSING's documentation. [] Additions or exceptions (if any) to the PAs/SUPERVISOR ELECTRONICS PROCESSING's note and plan are summarized below: [PT TO BE ADMITTED TO [facility]] (Raj Gilliland MD) Lorazepam 1.5 MG Q12H 07/12 0600 AC (Ativan) 07/12 1801 Lorazepam 1 MG Q12H 07/12 0000 AC (Ativan) 07/12 1201 Lorazepam 1.5 MG Q6 07/11 0600 AC (Ativan) 07/11 1801 Gabapentin 300 MG AT BEDTIME 07/10 2100 CAN (Neurontin) Gabapentin 600 MG Q4 HRS NEEDED PRN 07/10 1230 AC (Neurontin) Lorazepam 2 MG Q6 07/10 1200 AC 07/10 (Ativan) 07/11 0001 1220 Al Hydroxide/Mg 30 ML Q4-6 PRN PRN 07/10 1015 AC Hydroxide (Maalox Plus) Albuterol Sulfate 2 PUF Q6P PRN 07/10 1015 AC (Ventolin) Ibuprofen 400 MG Q6P PRN 07/10 1015 AC (Motrin) Lorazepam 2 MG Q2P PRN 07/10 1015 AC (Ativan) Lorazepam 1 MG Q2P PRN 07/10 1015 AC (Ativan) Magnesium Hydroxide 30 ML AT BEDTIME NEED.. 07/10 1015 AC (Milk Of Magnesia) Nicotine 2 MG Q2P PRN 07/10 1015 AC (Nicotine) Folic Acid 1 MG DAILY 07/10 1012 AC 07/10 (Folic Acid) 07/12 0901 1041 Multivitamins 1 TAB DAILY 07/10 1012 AC 07/10 (Theragran Vitamins) 1041 Thiamine HCl 100 MG DAILY 07/10 1012 AC 07/10 (Vitamin B1) 07/12 0901 1041 Aripiprazole 5 MG DAILY 07/10 1010 AC 07/10 (Abilify) 1041 Levothyroxine Sodium 0.05 MG DAILY AC 07/10 1010 AC 07/10 (Synthroid) 1041 Hand-Off Endorsed To: Talat CHRISTIANSON,Raj Alvarado Endorsed Time: 0700 Pending: consult (Bret Walker MD) Initial ED EKG: NSR, nonspecific ST T wave chg Prior EKG: unchanged (Raj Gilliland MD) Departure Departure Condition: Stable Referrals: Ricky Palacios APRN (PCP/Family) Departure Forms: Customer Survey General Discharge Information (Jhonny Norwood) Departure Disposition: STILL A PATIENT Clinical Impression Primary Impression: Depression with suicidal ideation Secondary Impressions: Alcohol intoxication delirium (Bret Walker MD) Psych Admission Note Psychiatric Admission: I have seen and evaluated BONNIE BARAHONA. I have also reviewed all the pertinent lab results and diagnostic results. BONNIE BARAHONA will be admitted to our inpatient Psychiatric unit for treatment and care. PA/SUPERVISOR ELECTRON[employer] PROCESSING Co-Sign Statement Statement: ED Attending supervision documentation- [X] I saw and evaluated the patient. I have also reviewed all the pertinent lab results and diagnostic results. I agree with the findings and the plan of care as documented in the PA's/SUPERVISOR ELECTRON[employer] PROCESSING's documentation. X] I have reviewed the ED Record and agree with the PA's/SUPERVISOR ELECTRON[employer] PROCESSING's documentation. [] Additions or exceptions (if any) to the PAs/SUPERVISOR ELECTRONICS PROCESSING's note and plan are summarized below: [PT TO BE ADMITTED TO [facility]] (Talat CHRISTIANSON,Raj Alvarado) [PT TO BE ADMITTED TO [facility]] (Talat CHRISTIANSON,Raj Alvarado)
[2018-07-09 10:07] LABS: ABSOLUTE BASOPHIL COUNT 0 /CUMM (0.0-0.2); ABSOLUTE EOSINOPHIL COUNT 0 /CUMM (0.0-0.7); ABSOLUTE GRANULOCYTE CT 2.2 /CUMM (1.4-6.5); ABSOLUTE LYMPH COUNT 2.6 /CUMM (1.2-3.4); ABSOLUTE MONOCYTE COUNT 0.6 /CUMM (0.10-0.60); BASOPHIL % 0.8 % (0.0-2.0); EOSINOPHIL % 0.8 % (0-5); GRANULOCYTE % 40.4 % (42.2-75.2); HEMATOCRIT 47.4 % (42-52); MEAN CORPUSCULAR HGB 34.3 PG (27.0-31.0); MEAN CORPUSCULAR HGB CONC 34.7 G/DL (33.0-37.0); MEAN PLATELET VOLUME 8.1 FL (7.4-10.4); PLATELET COUNT 202 /CUMM (130-400); RBC DISTRIBUTION WIDTH 15.2 % (11.5-14.5); RED BLOOD CELL CT 4.79 /CUMM (4.70-6.10); WHITE BLOOD CELL COUNT 5.5 /CUMM (4.8-10.8)
--- NOTE | 2018-07-09 20:28 | ED PSYCH CRISIS CONSULTATION ---
See Addendum Crisis Consult Basic Assessment Date of Consult: 07/09/18 Responsible Person/Accompanied By: SELF Insurance Authorization: Insurance #1: Insurance name: NIKO GALLEGO Phone number: Policy number: [id number] Group number: Authorization number: ED Provider: Patient's ED Provider: Jhonny Norwood Primary Care Physician: Patient's PCP: Ricky Palacios APRN PCP's Current Psychiatrist: [facility] Chief Complaint: Psychiatric Related Complaint Patient's Quote: "I just need a little rest" Present Illness: Pt. was a 57 year old male with a very red face and bloodshot eyes, interviewed in the ER. He reported his timeline included [facility] psychiatric admission earlier this year, followed by 4 days of Crisis and Respite, followed by [facility] (typically 28-45 days), followed by 90 days at [facility]. He was discharged to his brother's home in [place], [place] and he attends [facility]. He reported that he "ruined his meds in the rain" but that they were prescribed by [facility] and he never followed up with medications prescribed by [facility]. He reported he decided to come to the ER after he was up all night last night. He reported having 4-5 beers before coming here this morning and he typically drinks a 12 pack or more per day and has done this since being discharged from [facility] 4 1/2 weeks ago. He stated that his thoughts "get crazy", meaning that he feels suicidal but he does not have a plan (contrary to what he stated this morning), and he does feel like he "has doc" and wants to live overall. He denied any past suicide attempts but stated that 2 years ago, after 8-10 years sober from Heroin, he used 2 bags of heroin and had an accidental overdose. He reported many past psych hospitalizations at [facility]. He reported nightmares and flashbacks from taking care of family members (mother and brother) who were ill. He stated his mother was bedridden for 2 years and he cared for her. Client also is on probation, consumer safety officer is out of [place]. He says "I need to contact him", denied any upcoming court dates. After speaking with brother, pt. may be homeless and staying in shelters as brother denied that he was staying with him intermediate manager. Patient's Address: [address] [place] [phone] Other Phone Number: Who Do You Live With? Other (see notes) (brother) Family/Informants Interviewed: interviewed brother, who pt. reported that he stayed with. Brother, Efrain , reporte that he lets his brother stay with him "for a day or two" but he has his own kids and he can't let him stay for long periods of time. He said he assumed his brother was staying in the prison. He did report he is concerned about his brother. He said he was "in the program" and doing well but as soon as he was released "it all started all over again" and he began drinking. He reported that a few days ago pt. told him he was walking along the train tracks and he thought about waiting for a train to come to jump in front of it and end his life. Efrain reported that pt. "needs help". Allergies - Coded Allergies: NO KNOWN ALLERGIES (NONE 01/06/18) Current Medications - Scheduled Medications Amitriptyline HCl 50 MG TABLET 1 TAB PO QPM MENTAL HEALTH/SLEEP #30 (Reported ) Entered as Reported by Isabela Avelar on 06/07/18 1236 Aripiprazole (Abilify) 10 MG TABLET 1 TAB PO BID MENTAL HEALTH (Reported) Entered as Reported by Isabela Avelar on 06/07/18 1235 Levothyroxine Sodium (Synthroid) (Unknown Strength) TABLET (Unknown Dose) PO DAILY SUPPLEMENT (Reported) Entered as Reported by Isabela Avelar on 06/07/18 1237 Tamsulosin HCl 0.4 MG CAP.ER.24H 1 CAP PO DAILY #30 (Reported) Entered as Reported by Isabela Avelar on 06/07/18 1237 Scheduled PRN Medications Gabapentin 300 MG CAPSULE 1 CAP PO TID PRN DEPRESSION/ANXIETY (Reported) Entered as Reported by Kristie Butler MD on 06/07/18 1649 Hydroxyzine HCl (hydrOXYzine HCl) 10 MG TABLET 1 TAB PO PRN ANXIETY #90 ( Reported) Entered as Reported by Isabela Avelar on 06/07/18 1238 Laboratory Results: Laboratory Tests 07/09/18 1129: Urine Opiates Screen < 100, Methadone Screen < 40, Barbiturate Screen < 60, Ur Phencyclidine Scrn < 6.00, Amphetamines Screen < 100, U Benzodiazepines Scrn < 85, Urine Cocaine Screen < 50, Urine Cannabis Screen 7.40 07/09/18 0949: Anion Gap 10, Estimated GFR > 60, BUN/Creatinine Ratio 8.3, Glucose 94, Calcium 9.1, Total Bilirubin 0.6, AST 138 H, ALT 111 H, Alkaline Phosphatase 75, Total Protein 7.8, Albumin 4.3, Globulin 3.5, Albumin/Globulin Ratio 1.2, CBC w Diff NO MAN DIFF REQ, RBC 4.79, MCV 99.0 H, MCH 34.3 H, MCHC 34.7, RDW 15.2 H, MPV 8.1, Gran % 40.4 L, Lymphocytes % 47.5, Monocytes % 10.5 H, Eosinophils % 0.8, Basophils % 0.8, Absolute Granulocytes 2.2, Absolute Lymphocytes 2.6, Absolute Monocytes 0.6, Absolute Eosinophils 0, Absolute Basophils 0, Serum Alcohol 298.0 Past History Past Medical History Neurological: NONE EENT: NONE Cardiovascular: NONE Respiratory: NONE Gastrointestinal: pancreatitis Hepatic: hepatitis C, ELEVATED LIVER ENZYMES Renal: NONE Musculoskeletal: NONE Psychiatric: anxiety, depression, insomnia, STRESS Endocrine: NONE Blood Disorders: NONE Cancer(s): NONE CATERING ASSISTANT/Reproductive: NONE Past Surgical History Surgical History: non-contributory Psychosocial History Strengths/Capabilities: Pt reports he is motivated for treatment and willing to follow through with outpatient services. The pt also has support of his brother. Physical Limitations (Interventions): None known Psychiatric Treatment History Psych Treatment Psychiatric Treatment Yes Inpatient Treatment Yes Outpatient Treatment Yes Location of Treatment [facility] Reason for Treatment depression and substance abuse Dates of Treatment various Diagnosis by History: Depression Alcohol use d/o Opioid use d/o Substance Use/Abuse History Drug Use/Abuse Substances Used/Abused Yes Substance Used/Abused Alcohol First Use unknown Last Used this morning How much used/taken 4-5 beers but typically 12 beers per day How often daily For how long 1 month Substance Abuse Treatment Substance Abuse Treatment Past Substance Abuse TX Yes Inpatient Treatment Yes Outpatient Treatment Yes Location of Treatment [facility] IOP Reason for Treatment ongoing substance abuse Response to Treatment relapses Current Mental Status Mental Status Orientation: Person, Place, Situation Affect: Depressed, Flat, Sad Speech: Soft Neuro-vegetative: Concentration Poor, Energy Decreased, Helpless, Sleep Disturbance Appearance Appearance- Dress/Hygiene: very red face and eyes, depressed looking, in hospital gown. Behaviors Thought Process: WNL Thought Content: WNL Memory: WNL Insight: Poor SI/HI Risk Assessment Past Suicidal Ideation/Attempts Yes Current Suicidal Ideation/Att Yes Past Homicidal Ideation/Att: No Current Homicidal Ideation/Attempts No Degree of Intent: Thoughts/No Intent Danger To: Self Gravely Disabled: Inability, Lack of Insight, Poor Impulse Control, Poor Judgment Risk Factors: high anxiety/distress, SA/MH hospitalized, substance abuse, male, limited support Lethality Ratin PTSD Checklist PTSD Score: PTSD Score: Response Value Disturbing memories,thoughts,images of stressful experience? Moderately 3 Disturbing dreams of stressful experience from past? Moderately 3 Suddenly acting/feeling as if reliving stressful experience? Not at all 1 Unpleasant feeling when reminded of stressful experience? A little bit 2 Physical reactions when reminded of stressful experience? Not at all 1 Avoid thinking/talking of stressful exp. to avoid reactions? Not at all 1 Avoid activities/situations that remind of stressful exp.? Not at all 1 Trouble remembering important parts of stressful experience? Not at all 1 Loss of interest in things that you used to enjoy? Extremely 5 Feeling distant or cut off from other people? Moderately 3 Feeling emotionally numb/unable to love those close to you? A little bit 2 Feeling as if your future will somehow be cut short? Not at all 1 Trouble falling or staying asleep? Extremely 5 Feeling irritable or having angry outbursts? Moderately 3 Having difficulty concentrating? Moderately 3 Being super alert or watchful on guard? Not at all 1 Feeling jumpy or easily startled? Not at all 1 Total 37 ED Management Sitter: Yes Restraints: No DSM5/PS Stressors/Medical Prob Diagnosis' (DSM 5, Stressors, Medical): F32.2 Major Depressive Disorder F10.20 Alcohol Use Disorder Current GAF: 25 Departure Disposition Psych Medical Clearance Date: 07/09/18 Date Disposition Established: 07/09/18 Time Disposition Established: 2049 Plan for Disposition - Modality: Hold over for Re-eval Facility: [facility] Rationale for Disposition: Dr. Garay consulted. She agrees with the plan to re-evaluate pt. tomorrow. He shows risk factors including SI and statements about SI but only when intoxicated. Dr. Garay instructed that pt. should continue to be monitored for CIWA scores and withdrawal. Pt. should be re-evaled by crisis in the morning to evaluate for continued suicidality. CSSRS was administered and pt. showed risk factors: lifetime self injury ( through drinking and drug use), suicidal thoughts, suicidal thorughts with method but without intent, suicidal intent without specific plan, recent loss, pending isolation, prev. psych diag., non complaint with tx., hopelessness, MDD, substance abuse/dependence, mehtod for suicide available. Protective factors incliuded: Identifies reasons for living "doc", supportive family. Referrals Ricky Palacios APRN (PCP/Family)
[2018-07-10] VITALS (12 sets, daily range): BP systolic 116–144; BP diastolic 76–86
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
--- NOTE | 2018-07-10 12:00 | CPS PROVIDER INIT ASMT PSYCH ---
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 is a 57 year old male with a very red face and bloodshot eyes." Chief Complaint: travis Kaufman LCSW notes of 07/10/18: "I just need a little rest" Reaction to Hospitalization: The patient was admitted voluntarily History of Present Illness Onset of Illness: at least since 2009 Circumstances Leading to Admission: travis Kaufman LCSW notes of 07/10/18: "Pt. was a 57 year old male with a very red face and bloodshot eyes, interviewed in the ER. He reported his timeline included [facility] psychiatric admission earlier this year, followed by 4 days of Crisis and Respite, followed by [facility] (typically 28-45 days), followed by 90 days at [facility]. He was discharged to his brother's home in [place], [place] and he attends [facility]. He reported that he "ruined his meds in the rain" but that they were prescribed by [facility] and he never followed up with medications prescribed by [facility]. He reported he decided to come to the ER after he was up all night last night. He reported having 4-5 beers before coming here this morning and he typically drinks a 12 pack or more per day and has done this since being discharged from [facility] 4 1/2 weeks ago. He stated that his thoughts "get crazy", meaning that he feels suicidal but he does not have a plan (contrary to what he stated this morning), and he does feel like he "has doc" and wants to live overall. He denied any past suicide attempts but stated that 2 years ago, after 8-10 years sober from Heroin, he used 2 bags of heroin and had an accidental overdose. He reported many past psych hospitalizations at . He reported nightmares and flashbacks from taking care of family members (mother and brother) who were ill. He stated his mother was bedridden for 2 years and he cared for her. Problem(s) Justifying Need for Admission: travis Kaufman LCSW notes of 07/10/18: "He stated that his thoughts "get crazy", meaning that he feels suicidal but he does not have a plan (contrary to what he stated this morning), and he does feel like he "has doc" and wants to live overall." Past Psychiatric History Past Diagnosis(es)- if any: per Barbara Vasquez LCSWs notes of 07/10/18: Depression Alcohol use d/o Opioid use d/o Unspecified mood disorder. Rule out substance-induced mood disorder. Rule out unspecified bipolar disorder. Alcohol use disorder, severe. Cannabis use disorder. Hepatitis C. Pancreatitis by history. Hypothyroidism. Past Precipitating Factors- if any: Alcohol use and homelessness - Include inpatient and outpatient treatment Treatment History: per Barbara Vasquez LCSWs notes of 07/10/18: "He reported his timeline included [facility] psychiatric admission earlier this year , followed by 4 days of Crisis and Respite, followed by [facility] (typically 28- 45 days), followed by 90 days at [facility]. He was discharged to his brother's home in [place], [place] and he attends [facility]." History of Suicide Attempts or Gestures Denied history of suicide attempts, he acknowledges 1 accidental overdose on heroin (he is sure it was not intentional) Substance Abuse History: Alcohol cannabis and opiates Allergies: Coded Allergies: NO KNOWN ALLERGIES (NONE 01/06/18) Home Med List: The patient ran out of medications and has not been on medications just before his admission - Include any medical condition(s) that may - impact the patient's recovery/remission Past Medical History: History of hepatitis C history of pancreatitis history of hypothyroidism Past History Medical History Neurological: NONE EENT: NONE Cardiovascular: NONE Respiratory: NONE Gastrointestinal: pancreatitis Hepatic: hepatitis C, ELEVATED LIVER ENZYMES Renal: NONE Musculoskeletal: sciatica Psychiatric: anxiety, depression, insomnia, STRESS Endocrine: hypothyroidism Blood Disorders: NONE Cancer(s): NONE 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 History of MRSA: No History of VRE: No History of CDIFF: No Isolation History: Standard Tetanus Vaccine: 07/05/17 Surgical History Surgical History: TONSILLECTOMY Psychiatric Family/Social Hx Family History Psychiatric Illness: The records indicated that there is no family history of psychiatric illnesses there is a strong family history of alcoholism Substance Use: His father and brothers were/are alcoholics and there is also polysubstance abuse in the family according to the records Suicides: Records indicated no suicides in the family Social History Living Situation: Currently homeless Significant Relationships (family/friends): He is close to 1 of his 2 brothers both parents are the patient has a 28-year-old son but he has no contact with him Education: Ninth grade education Vocation/Occupation: Unemployed, no income Legal: History of arrests for goals, burglary, larceny, breach of peace, and disorderly conduct. Healthly Behaviors Screening Tobacco Screening Tobacco Use from ED Docu: Current Daily Use Daily Tobacco Use Amount/Type: => 5 Cigarettes daily - If tobacco counseling indicated - the following topics are required. - #1 Recognizing dangerous situations. - #2 Coping Skills. - #3 Basic information about quitting. Status of Tobacco Cessation Counseling: #1, #2 AND #3 Completed Cessation Med Status Nicotine Patch Ordered Alcohol Screening - ETOH screen POS if BAL >=80 or Audit-C>= M4/F3 Audit-C Score from Diag Assess: 12 Blood Alcohol Level: Laboratory Tests 07/09 0949 Toxicology Serum Alcohol (<10 MG/DL) 298.0 Alcohol Use Screening Results: Pos per Audit C &/or BAL - If ETOH counseling indicated - the following topics are required. - #1 Express concern about the patient's - drinking at unhealthy levels, include informing - of national norms for moderate drinking: - men <= 14 drinks/week, max 4 drinks/occasion - women <= 7 drinks/week, max 3 drinks/occasion - #2 Providing feedback, including linking alcohol to - negative physical effects (liver injury, hypertension) - negative emotional effects (relationship problems and - depression) - negative occupational consequences (reduced work - performance) - #3 Advising the patient to abstain from alcohol or - to drink below national norms for moderate drinking - (as listed above). Status of ETOH Use Counseling: #1, #2 AND #3 Completed. Metabolic Screening - Screen if on a Neuroleptic Medication - Metabolic screening should include: - Blood Pressure, BMI, Glucose or Hgb A1c, & a - Lipid profile from within the past 365 days. Metabolic Screening Not Applicable, patient not on a neuroleptic. Exam and Plan Mental Status Examination Ambulation Status: Patient was steady on his feet Appearance: Sunburned face and bloodshot eyes Attitude towards examiner: He was calm and cooperative Psychomotor activity: Showed normal psychomotor activity Behavior: No abnormal behaviors Quality of speech: Normal speech Affect: He showed reasonable range of affect Mood: He reported that has been feeling very depressed lately Suicidal Ideation: Reported thoughts of suicide as late as last night Homicidal Ideation: Denied homicidal ideation or violent thoughts Hallucinations: Denied hallucinations Paranoid/Delusional Material: Denied feeling paranoid, there were no delusions during the interview Difficulties with thought organization: He was coherent, no significant thought disorder Insight: He has partial insight Judgment: History suggests poor judgment Orientation: He was alert and oriented to place and person Cognition: Seems to have minor difficulties with attention and concentration and information processing Memory Function: Did not seem to have a gross impairment in short-term memory Estimate of intellectual functioning: Average Assets/Strengths Patient Identified Assets/Strengths: Patient is resilient, has a supportive brother, and resourceful Impression/Plan Impression and Plan: 57-year-old single white male who presents with thoughts of suicide in the context of relapsing. He presents with sunburn to the face and bloodshot eyes and tremulousness. There is withdrawing from alcohol. - Include all active medical diagnosis that require tx DSM 5 Diagnosis(es): Major depressive disorder Alcohol use disorder Hepatitis C Hypothyroidism - Initial Tx Plan for Active Psych & Medical Conditions Treatment Plan: Inpatient psychiatric care with safety checks every 15 minutes and Vital signs, CIWA protocol, nursing assessments Group therapy, activity therapy, milieu therapy Biopsychosocial assessment, collateral information, and aftercare planning Ativan on a regular schedule plus as needed for alcohol withdrawal symptoms - Factors that would help patient function - in a less restrictive setting. Factors: Patient will be discharged once he is safely detoxified and once he has 2 consecutive days without thoughts of suicide or wishing
--- NOTE | 2018-07-10 14:42 | History & Physical ---
General Information and HPI MD Statement: I have seen and personally examined BONNIE BARAHONA and documented this H&P. The patient is a 57 year old M who presented with a patient stated chief complaint of Depression, Alcohol use. Source of Information: patient Exam Limitations: no limitations History of Present Illness: 57-year-old male with past medical history significant for hepatitis C, hypothyroidism, pancreatitis, anxiety, depression, alcohol use who was admitted to [facility] with increasing depression and alcohol use. Patient claims that he follows with [facility]. He ran out of his medications therefore currently not taking any of his medications. He also has chronic low back pain. He has not received any treatment for his hepatitis C. He is also on probation. He has a lot of stressors and currently does not work. He lives with his brother. He drinks 12 beers a day. He is feeling more depressed but denies any suicidal or homicidal ideation. He does complain of chronic back pain. Denies any chest pain abdominal pain, nausea, vomiting but did complain of diarrhea. He denies any bright blood per rectum. Allergies/Medications Allergies: Coded Allergies: NO KNOWN ALLERGIES (NONE 01/06/18) Home Med list Amitriptyline HCl 50 MG TABLET 1 TAB PO QPM MENTAL HEALTH/SLEEP (Reported) Aripiprazole (Abilify) 10 MG TABLET 1 TAB PO BID MENTAL HEALTH (Reported) Gabapentin 300 MG CAPSULE 1 CAP PO TID PRN DEPRESSION/ANXIETY (Reported) Hydroxyzine HCl (hydrOXYzine HCl) 10 MG TABLET 1 TAB PO PRN ANXIETY (Reported ) Levothyroxine Sodium (Synthroid) (Unknown Strength) TABLET 50 MCG PO DAILY HYPOTHYROID (Reported) Tamsulosin HCl 0.4 MG CAP.ER.24H 1 CAP PO DAILY (Reported) Past History Travel History Traveled to [place] past 21 day No Medical History Neurological: NONE EENT: NONE Cardiovascular: NONE Respiratory: NONE Gastrointestinal: pancreatitis Hepatic: hepatitis C, ELEVATED LIVER ENZYMES Renal: NONE Musculoskeletal: sciatica Psychiatric: anxiety, depression, insomnia, STRESS Endocrine: hypothyroidism Blood Disorders: NONE Cancer(s): NONE 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 Home Who Do You Live With? 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 EENTM: Reports: see HPI. Cardiovascular: Reports: see HPI. Respiratory: Reports: see HPI. GI: Reports: see HPI. Musculoskeletal: Reports: see HPI. Neurological/Psychological: Reports: see HPI. Exam & Diagnostic Data Last 24 Hrs of Vital Signs/I&O Vital Signs Date Time Temp Pulse Resp B/P B/P Pulse O2 O2 Flow FiO2 Mean Ox Delivery Rate 07/10 1215 96.9 57 131/83 07/10 1106 96.9 57 131/83 07/10 1030 98.8 63 16 124/78 07/10 1001 98.8 63 15 124/78 97 Room Air 07/10 0600 99.2 62 20 137/86 07/10 0554 99.2 62 20 137/86 94 Room Air 07/10 0400 98.6 61 18 133/79 08/ 0400 98.6 61 18 133/79 95 Room Air /10 0259 98.9 60 20 144/76 97 Room Air 08/10 0204 98.9 60 20 144/76 / 0034 98.2 78 20 117/82 97 Room Air / 0004 98.2 78 20 117/82 /09 2208 98.7 80 20 110/70 97 Room Air / 2204 98.7 80 20 110/70 07/09 2015 99.0 66 20 127/77 93 Room Air 07/09 2004 99.0 66 20 127/77 / 1804 98.3 90 18 119/77 08/09 1745 98.3 91 18 119/77 94 /09 1604 97.6 78 20 122/77 / 1600 97.6 78 20 122/77 96 Room Air Intake & Output 07/10 1600 07/10 0800 07/10 0000 Intake Total Output Total Balance Patient 166 lb Weight Physical Exam General Appearance Alert, Oriented X3, Cooperative Skin No Rashes HEENT PERRLA Neck Supple Cardiovascular Regular Rate, Normal S1, Normal S2 Lungs Clear to Auscultation Abdomen Normal Bowel Sounds, Soft, No Tenderness Neurological Cranial Nerves II through XII: Intact Last 24 Hrs of Labs/Darnell: Laboratory Tests 07/09 07/09 1129 0949 Chemistry Sodium (137 - 145 mmol/L) 142 Potassium (3.5 - 5.1 mmol/L) 4.0 Chloride (98 - 107 mmol/L) 107 Carbon Dioxide (22 - 30 mmol/L) 25 Anion Gap (5 - 16) 10 BUN (9 - 20 mg/dL) 5 L Creatinine (0.7 - 1.2 mg/dL) 0.6 L Estimated GFR (>60 ml/min) > 60 BUN/Creatinine Ratio (7 - 25 %) 8.3 Glucose (65 - 99 mg/dL) 94 Hemoglobin A1c (4.2 - 5.8 %) 5.0 Calcium (8.4 - 10.2 mg/dL) 9.1 Total Bilirubin (0.2 - 1.3 mg/dL) 0.6 AST (17 - 59 U/L) 138 H ALT (21 - 72 U/L) 111 H Alkaline Phosphatase (< 127 U/L) 75 Total Protein (6.3 - 8.2 g/dL) 7.8 Albumin (3.5 - 5.0 g/dL) 4.3 Globulin (1.9 - 4.2 gm/dL) 3.5 Albumin/Globulin Ratio (1.1 - 2.2 %) 1.2 Triglycerides (<150 mg/dL) Pending Cholesterol (< 200 MG/DL) Pending LDL Cholesterol, Calc (65 - 129 mg/dL) Pending HDL Cholesterol (40 - 60 mg/dL) Pending Cholesterol/HDL Ratio (0.00 - 4.88 %) Pending TSH &T3 &Free T4 Intrp (0.27 - 4.20 uIU/mL) Pending Hematology CBC w Diff NO MAN DIFF REQ WBC (4.8 - 10.8 /CUMM) 5.5 RBC (4.70 - 6.10 /CUMM) 4.79 Hgb (14.0 - 18.0 G/DL) 16.5 Hct (42 - 52 %) 47.4 MCV (80.0 - 94.0 FL) 99.0 H MCH (27.0 - 31.0 PG) 34.3 H MCHC (33.0 - 37.0 G/DL) 34.7 RDW (11.5 - 14.5 %) 15.2 H Plt Count (130 - 400 /CUMM) 202 MPV (7.4 - 10.4 FL) 8.1 Gran % (42.2 - 75.2 %) 40.4 L Lymphocytes % (20.5 - 51.1 %) 47.5 Monocytes % (1.7 - 9.3 %) 10.5 H Eosinophils % (0 - 5 %) 0.8 Basophils % (0.0 - 2.0 %) 0.8 Absolute Granulocytes (1.4 - 6.5 /CUMM) 2.2 Absolute Lymphocytes (1.2 - 3.4 /CUMM) 2.6 Absolute Monocytes (0.10 - 0.60 /CUMM) 0.6 Absolute Eosinophils (0.0 - 0.7 /CUMM) 0 Absolute Basophils (0.0 - 0.2 /CUMM) 0 Toxicology Urine Opiates Screen (>2000 NG/ML) < 100 Methadone Screen (>300 NG/ML) < 40 Barbiturate Screen (>200 NG/ML) < 60 Ur Phencyclidine Scrn (>25 NG/ML) < 6.00 Amphetamines Screen (>1000 NG/ML) < 100 U Benzodiazepines Scrn (>200 NG/ML) < 85 Urine Cocaine Screen (>300 NG/ML) < 50 Urine Cannabis Screen (>50 NG/ML) 7.40 Serum Alcohol (<10 MG/DL) 298.0 Assessment/Plan Assessment: 57-year-old male with past medical history significant for hepatitis C, hypothyroidism, pancreatitis, anxiety, depression, alcohol use who was admitted to [facility] with increasing depression and alcohol use. Patient's thyroid function test is still pending. He is continued on his levothyroxine. Patient also is continued on his gabapentin. I have reviewed the rest of his blood work. He has chronic elevation of his LFTs likely secondary to nomination of hepatitis C as well as alcohol use. Patient is currently nontender on abdominal exam. Further psych management including alcohol intoxication treatment will be upto psychiatry. As Ranked By This Provider Problem List: 1. Alcohol abuse 2. Pancreatitis 3. Chronic hepatitis C 4. Depression Miscellaneous Miscellaneous Documentation Attending Case Discussed With: Mandi Carrasco MD. Primary Care Physician: Ricky Palacios APRN Patient sees these Specialists psychiatry Level of Patient Care: [facility]
[2018-07-11] VITALS (7 sets, daily range): BP systolic 106–129; BP diastolic 72–87
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
--- NOTE | 2018-07-11 17:49 | CP SOUTH PROGRESS NOTE PSYCH ---
Psych (Inpt) Progress Note Progress Note Include the following elements, when applicable: Involvement in the active treatment of the patient with behavioral observations of the patient and the patient's response to the treatment. Review of the ongoing treatment process in the context of the treatment plan. Indication of how multi-disciplinary staff members are carrying out the treatment plan. Plans for future interventions and recommendations for revision of the treatment plan. Liaison with other physicians/providers. Progress Note: Case diswcussed with [facility] nurse. Pt has been cooperative with care. Visible in the unit. Upon assessment pt presents as calm and pleasant. reports symptoms of withdrawal are mostly controlled by ativan taper. Fair sleep and appetite. Interested in anti craving medication.Planing to do an IOP after hospitalization. On probation. MSE MIddle age man. Disheveled. fair eye contact. Reactive affect. organized, linear No SI/HI. No AVH Cog AAox3 I/J Fair. A/P 57 y/o WM EOTH Use Dx. Finishing detox. Will continue same tx plan. WIll disucss anti craving med tomorrow.
[2018-07-12 08:04] VITALS: BP 108/81
[2018-07-12 08:05] VITALS: BP 108/81
[2018-07-12 12:20] VITALS: BP 121/78
--- NOTE | 2018-07-12 13:09 | CP SOUTH PROGRESS NOTE PSYCH ---
Psych (Inpt) Progress Note Progress Note Include the following elements, when applicable: Involvement in the active treatment of the patient with behavioral observations of the patient and the patient's response to the treatment. Review of the ongoing treatment process in the context of the treatment plan. Indication of how multi-disciplinary staff members are carrying out the treatment plan. Plans for future interventions and recommendations for revision of the treatment plan. Liaison with other physicians/providers. Progress Note: Miguelito today has remained mostly in bed; isolates in room Mentions he still feels tired and is trying to " catch up from all the lost sleep" while he was drinking. Denies any clear periods of mike/hypomania. mood is stable. Future oriented. Wants to restart IOP. Tolerating medications well. Finishing detox, fair appetite. MIld tremors. We duscussed option of relapse prevention however his LFTS still abnormal. MSE Middle age man. poorly groomed. Fair eye contact. Restricted affect No SI/ HI .No AVH. Organized and linear. Cog AAox3 I/J Fair. A/P 57 y/o WM EOTH Use Dx. SIMD Vs MDD. Almost done with detox. Motivated for [facility] tx. COntinue same tx plan.
[2018-07-12 16:51] VITALS: BP 134/82
[2018-07-12 19:54] VITALS: BP 127/86
[2018-07-12 19:57] VITALS: BP 127/86
[2018-07-13 08:03] VITALS: BP 116/85
[2018-07-13 08:07] VITALS: BP 116/85
--- NOTE | 2018-07-13 08:10 | CP SOUTH PROGRESS NOTE PSYCH ---
Psych (Inpt) Progress Note Progress Note Vital Signs Date Time Temp Pulse B/P 07/13 1201 81 126/93 07/13 0807 97.1 82 116/85 07/13 0803 97.6 74 116/85 07/12 1957 96.7 93 127/86 pt. seems brighter in affect. no longer flushed-looking, fine tremor, feels close to ready for discharge. Denies any clear periods of mike/hypomania. mood is stable. Future oriented. Wants to restart IOP. Tolerating medications well. Middle age man. poorly groomed. Fair eye contact. Restricted affect No SI/HI . No AVH. Organized and linear. Alert and oriented to time, place, and person. Assessment 57 y/o WM EOTH Use Dx. SIMD Vs MDD. Almost done with detox. Motivated for [facility] tx. plan update: Change Regular Ativan to 1mg BID Aripiprazole 5 MG DAILY 07/10 1010 AC 07/13 Gabapentin 600 MG Q4 HRS NEEDED PRN 07/10 1230 AC 07/13 Ibuprofen 400 MG Q6P PRN 07/10 1015 AC Levothyroxine Sodium 0.05 MG DAILY AC 07/10 1010 AC 07/13 Lorazepam 2 MG Q2P PRN 07/10 1015 AC Lorazepam 1 MG Q2P PRN 07/10 1015 AC 07/11 Multivitamins 1 TAB DAILY 07/10 1012 AC 07/13 Lorazepam 0.5 MG ONCE 07/15 0000 AC PO 07/15 0001 Lorazepam 0.5 MG Q6H 07/14 0000 AC Lorazepam 0.5 MG ONCE ONE 07/13 1800 AC Lorazepam 2 MG Q2P PRN 07/10 1015 AC Lorazepam 1 MG Q2P PRN 07/10 1015 AC 07/11 PO 1959 Magnesium Hydroxide 30 ML AT BEDTIME NEED.. 07/10 1015 AC PO Multivitamins 1 TAB DAILY 07/10 1012 AC 07/13 PO 08 Nicotine 2 MG Q2P PRN 07/10 1015 AC PO
[2018-07-13 12:01] VITALS: BP 126/93
[2018-07-13 16:11] VITALS: BP 129/78
--- NOTE | 2018-07-13 17:56 | SOCIAL WORKER PROG NOTE PSYCH ---
Social Work Progress Note Progress Note [facility] review entered: Determination Status: PENDED The services requested require additional review. You will be contacted regarding the status of this request if further information is needed. An authorization decision will be made within the required timeframes and details of that decision may be found under the member's authorization history. Member Name Member ID Member Subscriber Name Subscriber ID BONNIE MATYASOVSZKY [id number] BONNIE SANCHEZYASOVSZKY [id number] Pended Authorization # Client Authorization # Type of Request [id number] CONCURRENT Date of Admission/ Start of Services Requested From Submission Date 07/10/2018 07/13/2018 07/13/2018 Level of Service Type of Service Level of Care Type of Care INPATIENT/HLOC Mental Health Inpatient Inpatient Hospital - Inpatient [facility] Reason Code P76
--- NOTE | 2018-07-13 18:46 | SOCIAL WORKER PROG NOTE PSYCH ---
Social Work Progress Note Progress Note This television writer met with patient. Patient stated that he came to the hospital due to increased depression "and I started drinking." He is refusing rehab, stating that he would prefer to return to [facility] at [facility] first. He stated that he completed 10 months at [facility] and does not feel that rehab is necessary at this time. Patient denied SI/HI/AH/VH. Patient stated that he is staying with his brother, Efrain Perez ([phone]), and is agreeable to this television writer contacting his brother to schedule a family meeting. However, the patient stated that his brother would not likely agree to a family meeting. He plans to return to living with his brother upon discharge. We discussed AA, however, patient stated that he is not willing to attend AA as it triggers him to use. Patient stated that he receives state assistance and food stamps. He stated that he is currently on probation due to violating a protective order and threatening. He was previously incarcerated and released on 01/01/18. Patient stated that he is on probation for 2 years, but is unsure as to who his cavalry officer is (through [place] [facility]). Patient denied any DCF involvement, past or current. 2:10pm This television writer left a vm for [place] at [facility] ([phone]) regarding patient's interest in [facility]. A call back number was provided.
[2018-07-13 20:04] VITALS: BP 124/99
[2018-07-13 22:34] VITALS: BP 124/99
[2018-07-14 07:57] VITALS: BP 118/83
[2018-07-14 08:16] VITALS: BP 118/83
[2018-07-14 12:24] VITALS: BP 123/86
--- NOTE | 2018-07-14 12:41 | CP SOUTH PROGRESS NOTE PSYCH ---
Psych (Inpt) Progress Note Progress Note Vital Signs Date Time Temp Pulse B/P B/P Pulse O2 O2 Flow FiO2 07/14 1224 98.4 81 123/86 07/14 0816 97.2 90 118/83 07/14 0757 97.2 90 118/83 07/13 2234 97.1 100 124/99 07/13 2004 97.1 100 124/99 The pt. seems more alert, and brighter in affect. He is less tremulous. He feels ready for discharge. This morning he asked for an increase in Abilify dose but was struggling to justify why except that it was the way it was prescribed before he ran out, he finally came up with "to stabilize my mood." He he did acknowledge some depressive symptoms but denied feeling hopeless and denied feeling worthless. He also denied having any wishes of or thinking of suicide. He denied having violent thoughts or thoughts of homicide. He reported that he has been to be living with his brother in [place] and his brother or his nephew would be driving him to the intensive outpatient program at [facility] in [place]. He reported that he is tolerating the medication changes that we made over the past few days. He denied any major side effects. He denied hallucinations and did not seem to be hallucinating. He denied feeling paranoid and there were no delusions during the interview. He was coherent without any significant formal thought disorder. Assessment update: 57 y/o WM EOTH Use Dx. SIMD Vs MDD. Almost done with detox. Motivated for [facility] tx. The patient is detoxified without any major incidents, he feels ready for discharge and he is denying thoughts of suicide or homicide. He is denying any hallucinations or paranoid delusions and does not exhibit thought disorder and does not bring up delusions during the interview. He reported that she will be staying with his brother in [place] and coming to [facility]'s intensive outpatient program. He reported that his brother or his nephew would be driving him Plan update: Discontinue CIWA and, therefore, discontinue Ativan coverage Increase aripiprazole to 10 mg daily Change gabapentin to 600 mg in the morning 600 mg around 2 PM and 1200 mg at bedtime because Ativan will be cut down to 0.5 mg twice daily Ibuprofen 400 MG Q6P PRN 07/10 1015 Levothyroxine Sodium 0.05 MG DAILY AC 07/10 1010 Multivitamins 1 TAB DAILY 07/10 1012
--- NOTE | 2018-07-14 17:01 | SOCIAL WORKER PROG NOTE PSYCH ---
Social Work Progress Note Progress Note This process description writer met with patient. 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 Patient was informed that this process description writer received a vm from [facility] ( [place]) recommending that he enter rehab. [place] also added that if he refuses, he may return to [facility] for IOP beginning or Friday at 9am this week if he discharges in time. Patient maintains that he refuses to go to rehab at this time - "I will next time if I relapse." He accepted the IOP start date of or Friday of this week. This process description writer and patient attempted to reach his brother, Efrain, by phone ([phone]) regarding a family meeting and to confirm that the patient may return to stay with him as he had been doing. A vm was left at 2:25pm. Patient stated that his brother would likely refuse a family meeting. This process description writer provided Efrain with a call back number. Patient expressed interest in discharging tomorrow, 07/15/18. He denied SI/HI/AH /VH. He stated that he will speak with his PO (once identified) about sober houses or recovery houses. He stated that he did not want resources/contact information at this time. Patient stated that he plans to return to his brother 's home upon discharge. He denied any access to weapons/guns.
[2018-07-14 20:07] VITALS: BP 137/80
[2018-07-15 07:33] VITALS: BP 113/85
[2018-07-15] MEDS ORDERED: AMITRIPTYLINE H50 M2 PO (08:31)
[2018-07-15] MEDS ORDERED: GABAPENTIN300 M2 PO (08:31)
[2018-07-15] MEDS ORDERED: TAMSULOSIN HCL0.4 M1 PO (08:31)
[2018-07-15] MEDS ORDERED: ABILIFY10 M1 PO (08:31)
[2018-07-15] MEDS ORDERED: SYNTHROID50 MCG PO (08:31)
--- NOTE | 2018-07-15 09:08 | Patient Discharge Instructions ---
Psych Discharge Inst General Discharge Information Reason for Admission: thoughts of suicide while inebriated Psy Discharge Primary Diag+ Major Depressive Disorder Psy Discharge Secondary Diag+ Alcohol Use Disorder, Hepatitis C, Hypothyroidism Summary Tests/Major Procedures Last 24 Hrs of Labs/Darnell: Laboratory Tests 07/09 07/09 1129 0949 Chemistry Sodium (137 - 145 mmol/L) 142 Potassium (3.5 - 5.1 mmol/L) 4.0 Chloride (98 - 107 mmol/L) 107 Carbon Dioxide (22 - 30 mmol/L) 25 Anion Gap (5 - 16) 10 BUN (9 - 20 mg/dL) 5 L Creatinine (0.7 - 1.2 mg/dL) 0.6 L Estimated GFR (>60 ml/min) > 60 BUN/Creatinine Ratio (7 - 25 %) 8.3 Glucose (65 - 99 mg/dL) 94 Hemoglobin A1c (4.2 - 5.8 %) 5.0 Calcium (8.4 - 10.2 mg/dL) 9.1 Total Bilirubin (0.2 - 1.3 mg/dL) 0.6 AST (17 - 59 U/L) 138 H ALT (21 - 72 U/L) 111 H Alkaline Phosphatase (< 127 U/L) 75 Total Protein (6.3 - 8.2 g/dL) 7.8 Albumin (3.5 - 5.0 g/dL) 4.3 Globulin (1.9 - 4.2 gm/dL) 3.5 Albumin/Globulin Ratio (1.1 - 2.2 %) 1.2 Triglycerides (<150 mg/dL) Pending Cholesterol (< 200 MG/DL) Pending LDL Cholesterol, Calc (65 - 129 mg/dL) Pending HDL Cholesterol (40 - 60 mg/dL) Pending Cholesterol/HDL Ratio (0.00 - 4.88 %) Pending TSH &T3 &Free T4 Intrp (0.27 - 4.20 uIU/mL) Pending Hematology CBC w Diff NO MAN DIFF REQ WBC (4.8 - 10.8 /CUMM) 5.5 RBC (4.70 - 6.10 /CUMM) 4.79 Hgb (14.0 - 18.0 G/DL) 16.5 Hct (42 - 52 %) 47.4 MCV (80.0 - 94.0 FL) 99.0 H MCH (27.0 - 31.0 PG) 34.3 H MCHC (33.0 - 37.0 G/DL) 34.7 RDW (11.5 - 14.5 %) 15.2 H Plt Count (130 - 400 /CUMM) 202 MPV (7.4 - 10.4 FL) 8.1 Gran % (42.2 - 75.2 %) 40.4 L Lymphocytes % (20.5 - 51.1 %) 47.5 Monocytes % (1.7 - 9.3 %) 10.5 H Eosinophils % (0 - 5 %) 0.8 Basophils % (0.0 - 2.0 %) 0.8 Absolute Granulocytes (1.4 - 6.5 /CUMM) 2.2 Absolute Lymphocytes (1.2 - 3.4 /CUMM) 2.6 Absolute Monocytes (0.10 - 0.60 /CUMM) 0.6 Absolute Eosinophils (0.0 - 0.7 /CUMM) 0 Absolute Basophils (0.0 - 0.2 /CUMM) 0 Toxicology Urine Opiates Screen (>2000 NG/ML) < 100 Methadone Screen (>300 NG/ML) < 40 Barbiturate Screen (>200 NG/ML) < 60 Ur Phencyclidine Scrn (>25 NG/ML) < 6.00 Amphetamines Screen (>1000 NG/ML) < 100 U Benzodiazepines Scrn (>200 NG/ML) < 85 Urine Cocaine Screen (>300 NG/ML) < 50 Urine Cannabis Screen (>50 NG/ML) 7.40 Serum Alcohol (<10 MG/DL) 298.0 Studies Pending at DC: None Patient Instructions Contact Information Your Psychiatrist on [facility] was Ovidio Wise MD * If you are experiencing an emergency related to this hospitalization, please call [phone] to contact the treating psychiatrist or the psychiatrist-on- call. * To Request a copy of your medical records, please contact the Medical Records Department at [phone]. * To request results of studies pending at the time of discharge, please call [phone]. * Continue your Medications until directed to stop by your Healthcare provider. General Medication Information Please continue to take your new medications and your continued home medications , unless otherwise indicated on your discharge medication list, or unless directed by your MD or SHOE FITTER to stop them. Special Instructions Diet Regular Activity Normal - Tobacco Use Treatment Offered Post DC Medications Offered: Refused Tob Medication Tx Post DC Tobacco Treatment Plan: Refused Tobacco Tx Pgm - EtOH/Drug Use D/O Treatment Offered Post DC Medications Offered: Med Not Indicated for D/O (liver enzymes were still eleva) Post DC EtOH/SubAbuse TX Plan: Other SubAbuse/Dual Pgm Metabolic Screening Patient on a neuroleptic(s) . Enter below results for Hemoglobin A1C, and lipid panel if obtained during the last 365 days. BMI: 23.700 Blood Pressure: 113/85 Laboratory Results From [facility] (If applicable): Cholesterol 220 MG/DL H 07/09/18 0949 Cholesterol/HDL Ratio 3 % 07/09/18 0949 HDL Cholesterol 87 mg/dL H 07/09/18 0949 Hemoglobin A1c 5.0 % 07/09/18 0949 LDL Cholesterol, Calc 120 mg/dL 07/09/18 0949 Triglycerides 69 mg/dL 07/09/18 0949 Advance Directives Does the Patient have Medical Advance Directives No/Refused further info Does Pt have Psychiatric Advance Directives? No/Refused further info Does Patient have a Designated Surrogate Decision Maker: No Information About Psychiatric Advance Directives Provided? Refused Discharge Plan Post Hospital Treatment Plan: [facility] IOP, Dual Track
--- NOTE | 2018-07-15 14:20 | CP SOUTH PROGRESS NOTE PSYCH ---
Psych (Inpt) Progress Note Progress Note The pt. was alert and oriented. His affect was bright. He was not tremulous. He feels ready for discharge. This morning, he reported that he was not feeling depressed. He denied feeling hopeless, denied feeling worthless, denied wishing , and denied thinking of suicide. Miguelito denied having violent thoughts or thoughts of homicide. He reported that he has been tolerating the medications well. He denied any major side effects. He denied hallucinations and did not seem to be hallucinating. He denied feeling paranoid and there were no delusions during the interview. He was coherent/no significant formal thought disorder. Assessment update: Miguelito is a 57-year-old white male with EOTH Use Dx. SIMD Vs MDD. Almost done with detox. Motivated for [facility] tx. The patient is detoxified without any major incidents, he feels ready for discharge and he is denying thoughts of suicide or homicide. He is denying any hallucinations or paranoid delusions and does not exhibit thought disorder and does not bring up delusions during the interview. He reported that she will be staying with his brother in [place] and going to [facility]'s intensive outpatient program. He reported that his brother or his nephew would be driving him Plan update: D/C Home F/U is with Dual Track IOP at [facility]
--- NOTE | 2018-07-15 18:06 | SOCIAL WORKER PROG NOTE PSYCH ---
Social Work Progress Note Progress Note This telegraphic typewriter operator met with patient. He reported a "good" mood. He denied SI/HI/AH/ VH. He stated that he plans to return to live with his brother and will speak with his protective services officer about sober housing. He stated that he did not want/ need any resources for sober houses at this time. Patient identified a safety plan in which he would "call a hotline or ambulance." He accepted the crisis numbers/warm lines upon discharge today. Patient's brother could not be reached by phone and did not return the call (Dr. Wise was informed). Patient did not have another way of reaching him. Patient requested to call probation to inform of discharge, which he did at 10:20am prior to discharging. He stated that he did not need this telegraphic typewriter operator to contact probation at this time. This telegraphic typewriter operator confirmed that the patient can return to [facility] tomorrow with [place] ([phone]). [place] also stated that the patient may utilize walk in hours with his clinician, Anne Marie Steel, today. Patient was informed of this and also accepted the plan to attend [facility] tomorrow at 9am. Patient was also informed of the smoking cessation group meeting information. 6pm: A vm was left for Katt at [facility] informing her that the patient health summary had been faxed at her attention. Faxed Referral(s) Referred To: [facility] Transition of Care Documents sent: Health Summary Faxed to: [facility], attn: Katt Fax #: [phone] Faxed by: Merline Coronado LCSW Date faxed: 07/15/18 Time Faxed: [phone]
== END 2018-07-15 10:44 | DRG 754 ==
LOC: ERH 09:05 → CP SOUTH 07-10 10:44 → ERHI 07-10 10:44 → ENTRNSPT 07-10 10:55 → EDTRNSPT 07-10 10:56 → EDTRNSPTSTS 07-10 10:56 → CP SOUTH 07-10 11:02 → CMPTRNSPT 07-10 11:30 → CP SOUTH 07-10 13:47
PROVIDERS: Physician Assistant Medical
DX: F32.9 Major depressive disorder, single episode, unspecified (principal); Z72.89 Other problems related to lifestyle; E03.9 Hypothyroidism, unspecified; K86.1 Other chronic pancreatitis; B19.20 Unspecified viral hepatitis C without hepatic coma; G89.29 Other chronic pain; M54.5 Low back pain
CPT/HCPCS: 80307; 93005; 93010; G0480; J0401; J3490

== ENCOUNTER 2018-08-04 14:50 | Inpatient (IN) | payer OTHER ==
[~2018-08-04] VITALS: Ht 177.8 cm; Wt 74.8 kg
[2018-08-04 15:06] VITALS: BP 140/90
--- NOTE | 2018-08-04 15:58 | ED GENERAL ADULT ---
History of Present Illness General Chief Complaint: Psychiatric Related Complaint Stated Complaint: +SI/HI,ETOH Source: patient Exam Limitations: intoxication Vital Signs & Intake/Output Vital Signs & Intake/Output Vital Signs Date Time Temp Pulse Resp B/P B/P Pulse O2 O2 Flow FiO2 Mean Ox Delivery Rate 08/10 1958 97.8 92 132/83 08/10 1952 97.8 92 132/83 08/10 1633 84 129/84 08/10 1250 79 113/73 08/10 0903 96.4 75 18 124/92 08/10 0805 75 124/92 08/10 0728 96.4 75 124/92 Allergies Coded Allergies: NO KNOWN ALLERGIES (NONE 01/06/18) Reconcile Medications Amitriptyline HCl 50 MG TABLET 1 TAB PO QPM MENTAL HEALTH/SLEEP Aripiprazole (Abilify) 10 MG TABLET 10 MG PO DAILY mood stability Gabapentin 300 MG CAPSULE 2 CAP PO TID PRN DEPRESSION/ANXIETY Levothyroxine Sodium (Synthroid) 50 MCG TABLET 50 MCG PO DAILY HYPOTHYROID Tamsulosin HCl 0.4 MG CAP.ER.24H 1 CAP PO DAILY Triage Note: PT BIBA FROM HOME. PT STATED TO EMS THAT HE WAS PLANNING ON HARMING HIMSELF WITH A KNIFE. PER EMS NO KNIFE WAS FOUND ON PT. PT ALSO STATED TO EMS "I AM GOING TO HURT ANYONE WHO WANTS TO HURT ME." PT PRESENTS HIGHLY INTOXICATED. PT STATED THAT HE DRANK ALCOHOL TODAY BUT DID NOT SPECIFY HOW MUCH. PT AGITATED. Triage Nurses Notes Reviewed? yes HPI: This is a 57-year-old male with history of chronic alcoholism presenting to the emergency department with alcohol intoxication and suicidal ideation. Patient states that he was considering stabbing himself to . He endorses heavy alcohol/liquor intake today. Denies any chest pain or difficulty breathing, nausea, vomiting. He endorses mild epigastric abdominal discomfort. He denies any coingestions or intentional self-harm. He denies any recent illness, travel , trauma. (Del CHRISTIANSON,Benjamin) Past History Travel History Traveled to [place] past 21 day No Medical History Any Pertinent Medical History? 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 No (Benjamin Mathis MD) Review of Systems Review of Systems Constitutional: Reports: no symptoms. Respiratory: Reports: no symptoms. Cardiovascular: Reports: no symptoms. GI: Reports: see HPI. Comments Review of systems somewhat limited by active alcohol intoxication, however patient is able to deny any acute pain apart from mild epigastric discomfort. He does endorse active suicidal ideation. He denies hallucinations. (Benjamin Mathis MD) Physical Exam Physical Exam General Appearance: well developed/nourished, no apparent distress, comfortable Head: atraumatic, normal appearance Eyes: Bilateral: normal appearance, PERRL, EOMI. Ears, Nose, Throat: normal pharynx, normal ENT inspection Neck: normal inspection, supple, full range of motion Respiratory: normal breath sounds, chest non-tender, no respiratory distress, lungs clear Cardiovascular: regular rate/rhythm, edema, normal peripheral pulses Gastrointestinal: soft, non-tender Back: normal inspection, normal range of motion Extremities: normal inspection, normal capillary refill, normal range of motion Neurologic/Psych: no motor/sensory deficits, oriented x 3 Comments: Moderately disheveled middle-aged male, no acute distress. Alert and oriented x4, no gross neurologic deficits, smells of EtOH. Gait not initially assessed. No obvious trauma. Abdominal exam benign. Core Measures ACS in differential dx? No CVA/TIA Diagnosis: No Sepsis Present: No Sepsis Focused Exam Completed? No (Benjamin Mathis MD) Progress Differential Diagnoses I considered the following diagnoses in my evaluation of the patient: Appears suicidal ideation in the setting of alcohol intoxication. Low suspicion for poly-substance abuse or other toxic ingestion. Mild concern for pink otitis related to alcohol ingestion. Doubt acute severe metabolic derangement or occult infectious process. Doubt acute traumatic process at this time. Plan of Care: Orders Procedure Date/time Status SUB HSP (15 MIN) 08/09 UNK Complete SUB HSP (15 MIN) 08/08 UNK Complete Current Medications Sig/Angel Start time Last Medication Dose Stop Time Status Admin Aripiprazole 10 MG BID 08/08 2100 AC 08/10 (Abilify) 0903 Gabapentin 600 MG 0900,1300 08/08 1300 AC 08/10 (Neurontin) 1250 Gabapentin 900 MG AT BEDTIME 08/06 2100 AC 08/09 (Neurontin) 213 Amitriptyline HCl 50 MG AT BEDTIME 08/05 2100 AC 08/09 (Elavil 50 MG Tablet) 2136 Al Hydroxide/Mg 30 ML Q4-6 PRN PRN 08/05 1100 AC Hydroxide (Maalox Plus) Benztropine Mesylate 1 MG Q6P PRN 08/05 1100 AC (Cogentin 1 MG Tablet) Benztropine Mesylate 1 MG Q6P PRN 08/05 1100 AC (Cogentin) Haloperidol 5 MG Q6P PRN / 1100 AC (Haldol) Haloperidol 5 MG Q6P PRN 08/05 1100 AC (Haldol) Ibuprofen 600 MG Q6P PRN 08/05 1100 AC 08/07 (Motrin) 1224 Lorazepam 2 MG Q2P PRN 08/05 1100 AC (Ativan) Lorazepam 1 MG Q2P PRN 08/05 1100 AC 08/06 (Ativan) 1613 Lorazepam 2 MG Q6P PRN / 1100 AC (Ativan) Magnesium Hydroxide 30 ML AT BEDTIME NEED.. 08/05 1100 AC (Milk Of Magnesia) Nicotine 2 MG Q2P PRN 08/05 1100 AC 08/10 (Nicotine) 1557 Levothyroxine Sodium 0.05 MG DAILY AC 08/05 1051 AC 08/10 (Synthroid) 0630 Tamsulosin HCl 0.4 MG DAILY 08/05 1050 AC 08/10 (Flomax) 0903 Multivitamins 1 TAB DAILY 08/05 1048 AC 08/10 (Theragran Vitamins) 0903 Initial labs consistent with mild dehydration. Patient well-appearing on reassessment. Continues to be intoxicated on my reassessment. Initial ED EKG: none (Del CHRISTIANSON,Benjamin) Departure Departure Time of Disposition: 1813 Disposition: STILL A PATIENT Condition: Stable Clinical Impression Primary Impression: Alcohol intoxication Secondary Impressions: Suicidal ideation Referrals: Ricky Palacios APRN (PCP/Family) Departure Forms: Customer Survey General Discharge Information (Benjamin Mathis MD) Departure Comments pt signed out to dr. vega, 08/05/18, 7am. (Natasha CHRISTIANSON,Malcolm Ordonez) Resident Co-Sign Statement Statement: ED Attending supervision documentation- [] I saw and evaluated the patient. I have also reviewed all the pertinent lab results and diagnostic results. I agree with the findings and the plan of care as documented in the Resident's documentation. [x] I have reviewed the ED Record and agree with the Resident's documentation. [] Additions or exceptions (if any) to the Resident's note and plan are summarized below: [] (Prieto Moreno DO) Critical Care Note Critical Care Note Critical Care Time: non-applicable (Del CHRISTIANSON,Benjamin) Benztropine Mesylate 1 MG Q6P PRN 08/05 1100 UNVr (Cogentin 1 MG Tablet) Benztropine Mesylate 1 MG Q6P PRN 08/05 1100 UNVr (Cogentin) Haloperidol 5 MG Q6P PRN 08/05 1100 UNVr (Haldol) Haloperidol 5 MG Q6P PRN 08/05 1100 UNVr (Haldol) Ibuprofen 600 MG Q6P PRN 08/05 1100 UNVr (Motrin) Lorazepam 2 MG Q2P PRN 08/05 1100 UNVr (Ativan) Lorazepam 1 MG Q2P PRN 08/05 1100 UNVr (Ativan) Lorazepam 2 MG Q6P PRN / 1100 UNVr (Ativan) Magnesium Hydroxide 30 ML AT BEDTIME PRN 08/05 1100 UNVr (Milk Of Magnesia) Nicotine 2 MG Q2P PRN 08/05 1100 UNVr (Nicotine) Aripiprazole 10 MG DAILY 08/05 1051 UNVr 08/05 (Abilify) 1155 Gabapentin 600 MG TID 08/05 1051 UNVr 08/05 (Neurontin) 1155 Levothyroxine Sodium 0.05 MG DAILY AC 08/05 105 UNVr 08/05 (Synthroid) 1155 Tamsulosin HCl 0.4 MG DAILY 08/05 1050 UNVr 08/05 (Flomax) 1155 Folic Acid 1 MG DAILY 08/05 1048 UNVr 08/05 (Folic Acid) 08/07 0901 1155 Multivitamins 1 TAB DAILY 08/05 1048 UNVr 08/05 (Theragran Vitamins) 1155 Thiamine HCl 100 MG DAILY 08/05 1048 UNVr 08/05 (Vitamin B1) 08/07 0901 1155 Laboratory Tests 08/04/18 1611: Urine Opiates Screen < 100, Methadone Screen < 40, Barbiturate Screen < 60, Ur Phencyclidine Scrn < 6.00, Amphetamines Screen 105, U Benzodiazepines Scrn < 85, Urine Cocaine Screen < 50, Urine Cannabis Screen < 5.00 08/04/18 1609: Anion Gap 9, Estimated GFR > 60, BUN/Creatinine Ratio 7.1, Glucose 103 H, Calcium 9.2, Total Bilirubin 0.5, AST 96 H, ALT 76 H, Alkaline Phosphatase 59, Total Protein 7.1, Albumin 4.1, Globulin 3.0, Albumin/Globulin Ratio 1.4, Lipase 193, TSH &T3 &Free T4 Intrp 0.619, CBC w Diff NO MAN DIFF REQ, RBC 4.61 L, MCV 101.0 H, MCH 34.3 H, MCHC 34.0, RDW 15.7 H, MPV 7.9, Gran % 37.8 L, Lymphocytes % 52.5 H, Monocytes % 8.5, Eosinophils % 0.5, Basophils % 0.7, Absolute Granulocytes 1.9, Absolute Lymphocytes 2.7, Absolute Monocytes 0.4, Absolute Eosinophils 0, Absolute Basophils 0, Serum Alcohol 373.0 Initial labs consistent with mild dehydration. Patient well-appearing on reassessment. Continues to be intoxicated on my reassessment. Initial ED EKG: none (Benjamin Mathis MD) Departure Departure Time of Disposition: 1813 Disposition: STILL A PATIENT Condition: Stable Clinical Impression Primary Impression: Alcohol intoxication Secondary Impressions: Suicidal ideation Referrals: Ricky Palacios APRN (PCP/Family) Departure Forms: Customer Survey General Discharge Information (Benjamin Mathis MD) Departure Comments pt signed out to dr. vega, 08/05/18, 7am. (Natasha CHRISTIANSON,Malcolm Ordonez) Critical Care Note Critical Care Note Critical Care Time: non-applicable (Benjamin Mathis MD)
[2018-08-04 16:17] LABS: ABSOLUTE BASOPHIL COUNT 0 /CUMM (0.0-0.2); ABSOLUTE EOSINOPHIL COUNT 0 /CUMM (0.0-0.7); ABSOLUTE GRANULOCYTE CT 1.9 /CUMM (1.4-6.5); ABSOLUTE LYMPH COUNT 2.7 /CUMM (1.2-3.4); ABSOLUTE MONOCYTE COUNT 0.4 /CUMM (0.10-0.60); BASOPHIL % 0.7 % (0.0-2.0); EOSINOPHIL % 0.5 % (0-5); GRANULOCYTE % 37.8 % (42.2-75.2); HEMATOCRIT 46.6 % (42-52); MEAN CORPUSCULAR HGB 34.3 PG (27.0-31.0); MEAN PLATELET VOLUME 7.9 FL (7.4-10.4); PLATELET COUNT 156 /CUMM (130-400); RBC DISTRIBUTION WIDTH 15.7 % (11.5-14.5); RED BLOOD CELL CT 4.61 /CUMM (4.70-6.10); WHITE BLOOD CELL COUNT 5.1 /CUMM (4.8-10.8)
[2018-08-04 19:55] VITALS: BP 114/62
[2018-08-04 22:47] VITALS: BP 111/67
[2018-08-05] VITALS (12 sets, daily range): BP systolic 109–163; BP diastolic 63–100
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
[2018-08-06] VITALS (13 sets, daily range): BP systolic 111–135; BP diastolic 67–93
--- NOTE | 2018-08-06 08:30 | CPS PROVIDER INIT ASMT PSYCH ---
Psychiatric Admission Software Installation Engineer's Note Reviewed: Yes Patient Seen and Examined: Yes Identifying Information: Pt is 57yo male biba to [facility] yesterday on [facility] PEER. Chief Complaint: "I'm very depressed" Reaction to Hospitalization: The patient was admitted voluntarily History of Present Illness Onset of Illness: At least since 2009 Circumstances Leading to Admission: According to Todd Burns, [facility]'s notes of 08/05/2018: "Pt is 57-year-old white male biba to [facility] yesterday on [facility]'s PEER which alleges that Pt. called 911 with plan to stab himself with a knife. Pt has a hx of depression with SI and alcohol abuse. Pt BAL yesterday was 373. Pt reports drinking 12-15 beers a day past two weeks.Pt reports not recent drug use. Pt denies HI/AH/VH. C-SSRS completed. Pt was has been inpatient 3x on [facility] since August 2017 with most recent discharge on July 15. Pt reports relapsing 2 days after discharge and didn't attend [facility] as planned. Pt hasn't been taking medications since discharge. Pt reports spending sometime with his brother in [place] but otherwise has been homeless. Pt continues to report thoughts to harm himself if unsable to get back on medications and stop drinking. Pt reports motivation for rehab following psychiatric stabilization." Problem(s) Justifying Need for Admission: Patient told Police Department that he was thinking about stabbing himself. Past Psychiatric History Past Diagnosis(es)- if any: Depression Alcohol use d/o Opioid use d/o Unspecified mood disorder. Rule out substance-induced mood disorder. Rule out unspecified bipolar disorder. Alcohol use disorder, severe. Cannabis use disorder. Hepatitis C. Pancreatitis by history. Hypothyroidism. Past Precipitating Factors- if any: Relapse to alcohol and drug use - Include inpatient and outpatient treatment Treatment History: [facility] admissions: Jul 10, 2018; Jan 07, 2018, and 2016 4 days of [facility], [facility] rehab 90 days at [facility]. Formerly [facility]. History of Suicide Attempts or Gestures Denied history of suicide attempts, he acknowledges 1 accidental overdose on heroin (he is sure it was not intentional) Substance Abuse History: Alcohol, cannabis, and opiates Allergies: Coded Allergies: NO KNOWN ALLERGIES (NONE 01/06/18) Home Med List: Amitriptyline HCl 50 MG TABLET 1 TAB PO QPM MENTAL HEALTH/SLEEP #15 TAB Prescribed by Ovidio Wise MD on 07/15/18 Aripiprazole (Abilify) 10 MG TABLET 10 MG PO DAILY mood stability #15 TAB Prescribed by Ovidio Wise MD on 07/15/18 Levothyroxine Sodium (Synthroid) 50 MCG TABLET 50 MCG PO DAILY HYPOTHYROID Gabapentin 300 MG CAPSULE 2 CAP PO TID PRN DEPRESSION/ANXIETY Tamsulosin HCl 0.4 MG CAP.ER.24H 1 CAP PO DAILY - Include any medical condition(s) that may - impact the patient's recovery/remission Past Medical History: Hepatitis C. Pancreatitis by history. Hypothyroidism. 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 History of MRSA: No History of VRE: No History of CDIFF: No Isolation History: Standard Tetanus Vaccine: 07/05/17 Surgical History Surgical History: TONSILLECTOMY Psychiatric Family/Social Hx Family History Psychiatric Illness: The records indicated that there is no family history of psychiatric illnesses there is a strong family history of alcoholism Substance Use: His father and brothers were/are alcoholics and there is also polysubstance abuse in the family according to the records Suicides: no suicides in family Social History Living Situation: Homeless, with brother Significant Relationships (family/friends): Brother Education: 9th Grade Vocation/Occupation: Unemployed Legal: History of arrests for assault, burglary, larceny, breach of peace, and disorderly conduct. Healthly Behaviors Screening Tobacco Screening Tobacco Use from ED Docu: Current Not Daily Daily Tobacco Use Amount/Type: => 5 Cigarettes daily - If tobacco counseling indicated - the following topics are required. - #1 Recognizing dangerous situations. - #2 Coping Skills. - #3 Basic information about quitting. Status of Tobacco Cessation Counseling: #1, #2 AND #3 Completed Cessation Med Status Nicotine Gum Ordered Alcohol Screening - ETOH screen POS if BAL >=80 or Audit-C>= M4/F3 Audit-C Score from Diag Assess: 12 Blood Alcohol Level: Laboratory Tests 08/04 1609 Toxicology Serum Alcohol (<10 MG/DL) 373.0 Alcohol Use Screening Results: Pos per Audit C &/or BAL - If ETOH counseling indicated - the following topics are required. - #1 Express concern about the patient's - drinking at unhealthy levels, include informing - of national norms for moderate drinking: - men <= 14 drinks/week, max 4 drinks/occasion - women <= 7 drinks/week, max 3 drinks/occasion - #2 Providing feedback, including linking alcohol to - negative physical effects (liver injury, hypertension) - negative emotional effects (relationship problems and - depression) - negative occupational consequences (reduced work - performance) - #3 Advising the patient to abstain from alcohol or - to drink below national norms for moderate drinking - (as listed above). Status of ETOH Use Counseling: #1, #2 AND #3 Completed. Metabolic Screening - Screen if on a Neuroleptic Medication - Metabolic screening should include: - Blood Pressure, BMI, Glucose or Hgb A1c, & a - Lipid profile from within the past 365 days. Metabolic Screening Patient on a neuroleptic(s) BMI: 23.600 Blood Pressure: 127/93 Laboratory Results From [facility] (If applicable): Lab Cholesterol 220 MG/DL H 07/09/18 0949 Cholesterol/HDL Ratio 3 % 07/09/18 0949 HDL Cholesterol 87 mg/dL H 07/09/18 0949 Hemoglobin A1c 5.0 % 07/09/18 0949 LDL Cholesterol, Calc 120 mg/dL 07/09/1849 Triglycerides 69 mg/dL 07/09/1849 Exam and Plan Mental Status Examination Ambulation Status: Steady gait Appearance: Very ellison from sun exposure/homelessness Attitude towards examiner: Cooperative Psychomotor activity: Normal psychomotor activity Behavior: No bizarre behaviors Quality of speech: Normal speech, not pressured, not slurred Affect: Constricted affect Mood: Depressed mood Suicidal Ideation: Denied thoughts of suicide today Homicidal Ideation: Denied violent thoughts or thoughts of homicide Hallucinations: Denied hallucinations Paranoid/Delusional Material: Denied feeling paranoid, there were no delusions during the interview. Difficulties with thought organization: Coherent, no thought disorder Insight: Poor insight Judgment: Poor judgment, especially when intoxicated Orientation: Alert and oriented to place and person Cognition: No difficulties with information processing. Memory Function: No evidence of short-term memory impairment. Estimate of intellectual functioning: Average. Assets/Strengths Patient Identified Assets/Strengths: Resourceful and has a supportive brother Impression/Plan Impression and Plan: Miguelito is a 57-year-old white male who has been previously and Inpatient Psychiatry 3 times before. Once in 2007 and twice in 2018. His last admission was just last month. He suffers from chronic alcoholism and frequent relapses. He presented after he called children Police Department report and that he was having thoughts of stabbing self. He was intoxicated. He is well known to me and to the staff on Inpatient Psychiatry from 3 previous admissions. - Include all active medical diagnosis that require tx DSM 5 Diagnosis(es): Unspecified depressive disorder Alcohol use disorder Cannabis use disorder Opioid use disorder Hepatitis C Hypothyroidism - Initial Tx Plan for Active Psych & Medical Conditions Treatment Plan: Inpatient psychiatric care with safety checks every 15 minutes Alcohol detoxification protocol with Ativan Continue Abilify 10 mg daily Continue gabapentin and other medications as per his last discharge from Inpatient Psychiatry since he has not seen any other psychiatrist for psychiatric nurse practitioner is following his discharge. Nursing assessments and vital signs Biopsychosocial assessment, collateral information, and aftercare planning by GENERAL DOC Group therapy, milieu therapy, and activities therapy. The patient will be evaluated daily by a psychiatrist. - Factors that would help patient function - in a less restrictive setting. Factors: Patient will be discharge once he is free of thoughts of suicide for at least 2 consecutive days. consecutive days.
--- NOTE | 2018-08-06 10:40 | SOCIAL WORKER PROG NOTE PSYCH ---
Social Work Progress Note Progress Note Miguelito was asleep in his room around 10am. Woke up when prompted. Met with Dr. Wise and I together. Reviewed what has been going on since his discharge from here last. He said he stayed with his Brother occasionally, but his Brother does not permit drinking and when he was too drunk to return there he didn't. He also said as the drinking increased he stopped going there and to [facility]. He has been drinking 12-15 beers a day for the past couple of weeks. Denies other drug use. Today he presents as fatigued/ worn. Stated he is feeling a bit shaky from alcohol withdrawal. He is oriented x3. Denies any AH/ VH. Denies current SI. Stated he feels safe in the hospital and only has SI when he is out on the street and thinking about his situation. He is committed to going to rehab this time. Only wants to be referred to [facility] and states [facility] was starting conversation with them about a referral. Not sure if one was made already. He signed a release for [facility] and agreed to be referred to [facility]. After our meeting he returned to bed due to not feeling well. Clinical packet was faxed with to [facility].
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
--- NOTE | 2018-08-06 13:29 | PN- Att Addend ---
Attending Addendum Attending Brief Note Patient seen and examined, saying that he is feeling tired today. He was sleeping but did wake up. 57-year-old male with past medical history significant for hepatitis C, hypothyroidism, pancreatitis, anxiety, depression, alcohol use who was admitted to [facility] with increasing depression and alcohol use suicidal ideation. Vital Signs Date Time Temp Pulse Resp B/P B/P Pulse O2 O2 Flow FiO2 Mean Ox Delivery Rate 08/06 1217 80 126/80 08/06 0959 97 135/86 / 0823 96.3 90 127/93 / 0814 96.3 90 18 127/93 / 0807 96.3 90 127/93 / 0551 57 132/87 / 0314 52 111/67 /06 0056 84 /06 0047 52 124/78 /05 2202 95.2 95 109/63 /05 1959 97.0 80 117/82 09/05 1953 97.0 80 117/82 /05 1658 98.6 74 130/85 09/05 1651 98.6 74 130/85 09/05 1615 Room Air / 1614 98.3 57 18 136/82 94 Room Air /05 1613 98.3 57 18 136/82 09/05 1400 98.2 62 16 132/76 09/05 1400 98.2 62 16 132/76 95 Room Air on exam; aox3, nad. cv; s1, s2, rrr resp; clear abd; soft, nt, bs+ ext; no edema Laboratory Tests 08/04 08/04 1611 1609 Chemistry Sodium (137 - 145 mmol/L) 148 H Potassium (3.5 - 5.1 mmol/L) 3.8 Chloride (98 - 107 mmol/L) 113 H Carbon Dioxide (22 - 30 mmol/L) 26 Anion Gap (5 - 16) 9 BUN (9 - 20 mg/dL) 5 L Creatinine (0.7 - 1.2 mg/dL) 0.7 Estimated GFR (>60 ml/min) > 60 BUN/Creatinine Ratio (7 - 25 %) 7.1 Glucose (65 - 99 mg/dL) 103 H Calcium (8.4 - 10.2 mg/dL) 9.2 Total Bilirubin (0.2 - 1.3 mg/dL) 0.5 AST (17 - 59 U/L) 96 H ALT (21 - 72 U/L) 76 H Alkaline Phosphatase (< 127 U/L) 59 Total Protein (6.3 - 8.2 g/dL) 7.1 Albumin (3.5 - 5.0 g/dL) 4.1 Globulin (1.9 - 4.2 gm/dL) 3.0 Albumin/Globulin Ratio (1.1 - 2.2 %) 1.4 Lipase (23 - 300 U/L) 193 TSH &T3 &Free T4 Intrp (0.27 - 4.20 uIU/mL) 0.619 Hematology CBC w Diff NO MAN DIFF REQ WBC (4.8 - 10.8 /CUMM) 5.1 RBC (4.70 - 6.10 /CUMM) 4.61 L Hgb (14.0 - 18.0 G/DL) 15.8 Hct (42 - 52 %) 46.6 MCV (80.0 - 94.0 FL) 101.0 H MCH (27.0 - 31.0 PG) 34.3 H MCHC (33.0 - 37.0 G/DL) 34.0 RDW (11.5 - 14.5 %) 15.7 H Plt Count (130 - 400 /CUMM) 156 MPV (7.4 - 10.4 FL) 7.9 Gran % (42.2 - 75.2 %) 37.8 L Lymphocytes % (20.5 - 51.1 %) 52.5 H Monocytes % (1.7 - 9.3 %) 8.5 Eosinophils % (0 - 5 %) 0.5 Basophils % (0.0 - 2.0 %) 0.7 Absolute Granulocytes (1.4 - 6.5 /CUMM) 1.9 Absolute Lymphocytes (1.2 - 3.4 /CUMM) 2.7 Absolute Monocytes (0.10 - 0.60 /CUMM) 0.4 Absolute Eosinophils (0.0 - 0.7 /CUMM) 0 Absolute Basophils (0.0 - 0.2 /CUMM) 0 Toxicology Urine Opiates Screen (>2000 NG/ML) < 100 Methadone Screen (>300 NG/ML) < 40 Barbiturate Screen (>200 NG/ML) < 60 Ur Phencyclidine Scrn (>25 NG/ML) < 6.00 Amphetamines Screen (>1000 NG/ML) 105 U Benzodiazepines Scrn (>200 NG/ML) < 85 Urine Cocaine Screen (>300 NG/ML) < 50 Urine Cannabis Screen (>50 NG/ML) < 5.00 Serum Alcohol (<10 MG/DL) 373.0 A/P: 57-year-old male with past medical history significant for hepatitis C, hypothyroidism, pancreatitis, anxiety, depression, alcohol use who was admitted to [facility] with increasing depression and alcohol use suicidal ideation. Patient has been started on Ativan. He also has a history of hypothyroidism and his levothyroxine has been continued. He recently had thyroid function testing done and it was normal. The rest of the labs look okay. His vital signs are stable. I will defer the further psychiatric management to the psychiatrist.
[2018-08-07] VITALS (8 sets, daily range): BP systolic 107–146; BP diastolic 66–92
--- NOTE | 2018-08-07 10:27 | CP SOUTH PROGRESS NOTE PSYCH ---
Psych (Inpt) Progress Note Progress Note Miguelito is a 57-year-old white male who suffers from chronic severe alcoholism and frequent relapses. He called [place] [employer]--while intoxicated--to report and that he was having thoughts of stabbing self. He is well known to the staff on [facility] (this being his 4th admission in exactly 12 months). 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) Alcohol use disorder Cannabis use disorder Opioid use disorder Hepatitis C Hypothyroidism Vital Signs Date Time Temp Pulse Resp B/P B/P Pulse O2 FiO2 08/07 0752 96.9 91 107/91 08/07 0733 96.9 97 18 107/71 08/07 0725 96.9 97 107/71 08/07 0508 56 120/66 08/07 0133 58 117/68 08/06 2143 98.6 69 118/67 08/06 1951 97.5 96 122/85 08/06 1950 97.5 96 122/85 08/06 1830 97.5 96 126/71 08/06 1604 97.4 112 117/82 08/06 1425 92 116/85 Mental State: Steady gait Very ellison from sun exposure/homelessness Attitude towards examiner: Cooperative Normal psychomotor activity, No bizarre behaviors, Normal speech, not pressured, not slurred, Constricted affect, Depressed mood, Denied thoughts of suicide today Denied violent thoughts or thoughts of homicide Denied hallucinations Denied feeling paranoid, there were no delusions during the interview. Coherent, no thought disorder Poor insight Poor judgment, especially when intoxicated Alert and oriented to place and person, No difficulties with information processing. No evidence of short-term memory impairment. Treatment Plan Update: Reduce CIWA to [id number] while awake with lorazepam coverage as per protocol Change regular schedule benzodiazepine to Librium 100 mg in divided doses today; 75 mg in divided doses tomorrow; 50 mg in divided doses Friday, and to be reevaluated Friday morning Continue Abilify 10 mg daily Continue gabapentin Continue all other medications unchanged
--- NOTE | 2018-08-07 10:35 | SOCIAL WORKER PROG NOTE PSYCH ---
Social Work Progress Note Progress Note Met with Miguelito this morning. Reports some withdrawal symptoms with still feeling somewhat tremulous. He feels it is taking him awhile to feel better. Mood is calm and hopeful. Motivated to go into treatment. 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 I told him that I had heard that she is also looking into programs for him. He said he tried calling her several times yesterday, but didn't get her. He signed the application for [facility] this morning. Olga Cohn (community health worker) is faxing the application to [facility]. We talked about what he may do after rehab and if he was looking to go to a usp program. He said possibly, but definetely didn't want to go back to [facility]. Reported that there was alot of drug use and chaos in the program. Called [employer] Lawler to discuss a plan [phone]. She said she put in for a rehab referral, but she has to wait to see what contracted program has a bed open. Encouraged her to call me back to update us on if something becomes available. Let her know what we were working on. Alexandro scheduled a phone screening with Miguelito for Friday 2pm.
[2018-08-08 08:20] VITALS: BP 138/76
[2018-08-08 08:24] VITALS: BP 138/76
--- NOTE | 2018-08-08 14:07 | CP SOUTH PROGRESS NOTE PSYCH ---
Psych (Inpt) Progress Note Progress Note Include the following elements, when applicable: Involvement in the active treatment of the patient with behavioral observations of the patient and the patient's response to the treatment. Review of the ongoing treatment process in the context of the treatment plan. Indication of how multi-disciplinary staff members are carrying out the treatment plan. Plans for future interventions and recommendations for revision of the treatment plan. Liaison with other physicians/providers. Progress Note: Dr. Hood's note reviewed. Medication list reviewed. Case discussed with nurse, who reports that the patient is denying suicidal ideation. CIWA is unremarkable. We are looking into possible rehab placement. Patient seen at 10:37 AM. Reports doing all right. Feels a little hyper today and he does not know why. Affect is calm and blunted. Mood is good. Rates sad mood about 3/10. Reports having a lot of anxiety at 8/10 and feels hyper. Denies feeling hopeless, helpless or worthless. Does feel guilty. Denies having suicidal thoughts today. Denies homicidal ideation. Denies auditory and visual hallucinations and paranoid ideation. Sleep is so-so. Reports he is eating well. Energy: "today, I'm full of it." Tolerating medications well. He has minor hand tremor. Patient requests Abilify dose be increased to 10 mg twice daily because he states it helps with sleep and helps him to be calm. Reports he has been on 20 mg a day in the past. I adjusted dose to 10 mg twice daily but I informed him that his insurance plan may not cover 2 pills a day on an outpatient basis. Requested I change gabapentin 600 mg dosing time from 1 PM and 5 PM to 9 AM and 1 PM. I made that change. Bedtime dose will remain the same. IMPRESSION: Slow progress. Continue present treatment plan.
[2018-08-08 19:55] VITALS: BP 137/88
[2018-08-08 20:02] VITALS: BP 137/88
[2018-08-09 07:35] VITALS: BP 113/88
[2018-08-09 07:57] VITALS: BP 113/88
[2018-08-09 12:22] VITALS: BP 117/79
--- NOTE | 2018-08-09 15:07 | CP SOUTH PROGRESS NOTE PSYCH ---
Psych (Inpt) Progress Note Progress Note Include the following elements, when applicable: Involvement in the active treatment of the patient with behavioral observations of the patient and the patient's response to the treatment. Review of the ongoing treatment process in the context of the treatment plan. Indication of how multi-disciplinary staff members are carrying out the treatment plan. Plans for future interventions and recommendations for revision of the treatment plan. Liaison with other physicians/providers. Progress Note: Case and treatment plan discussed with nurse, who reports that the patient is denying suicidal ideation. CIWA scores are unremarkable. Patient seen 11:30 AM. Reports doing all right. Has no complaints. Reports he is starting to feel "real good." Reports he has a phone screen with [employer] tomorrow. Affect is calm and blunted to euthymic. Mood is good. Rates sad mood 0/10. Rates anxiety about 4-5/10 and he feels it could be related to having too much coffee, 4 cups today. Denies feeling hopeless, helpless or worthless. Feels guilty "always." Denies active and passive suicidal ideation. Denies homicidal ideation. Denies auditory and visual hallucinations and paranoid ideation. Reports he finally slept very well last night, 8 straight hours. Appetite is good. Energy: States "I'm full of it." Tolerating medications well, without complaint. IMPRESSION: Slow progress. Continue present treatment plan.
[2018-08-09 16:04] VITALS: BP 130/75
[2018-08-09 20:00] VITALS: BP 114/77
[2018-08-09 20:04] VITALS: BP 114/77
[2018-08-10 07:28] VITALS: BP 124/92
[2018-08-10 08:05] VITALS: BP 124/92
--- NOTE | 2018-08-10 08:14 | CP SOUTH PROGRESS NOTE PSYCH ---
Psych (Inpt) Progress Note Progress Note I reviewed the notes of Dr. Gomez over the weekend (08/08 and 08/09/2018). The patient's progress, treatment plan, and aftercare plans were discussed in the treatment team meeting this morning. Team members included: LCSWs, RNs, Activities Therapist, and Psychiatrist. Vital Signs Date Time Temp Pulse Resp B/P B/P Pulse O2 FiO2 Mean Ox Delivery 08/10 1250 79 113/73 08/10 0903 96.4 75 18 124/92 08/10 0805 75 124/92 08/10 0728 96.4 75 124/92 08/09 2004 97.7 78 114/77 08/09 2000 97.7 78 114/77 08/09 1604 97.3 83 130/75 Mental State: Steady gait, Cooperative, calm, Normal psychomotor activity, No bizarre behaviors, Normal speech, not pressured, not slurred, Constricted affect, Depressed mood, Denied thoughts of suicide today Denied violent thoughts or thoughts of homicide Denied hallucinations, Denied feeling paranoid, there were no delusions during the interview. Coherent, no thought disorder Alert and oriented to place and person, No difficulties with information processing. No evidence of short-term memory impairment. Treatment Plan Update: Continue all medications unchanged Current Medications Sig/Angel Start time Last Medication Dose Route Stop Time Status Admin Al Hydroxide/Mg 30 ML Q4-6 PRN PRN 08/05 1100 AC Hydroxide PO Amitriptyline HCl 50 MG AT BEDTIME 08/05 2100 AC 08/09 PO 2136 Aripiprazole 10 MG BID 08/08 2100 AC 08/10 PO 0903 Benztropine Mesylate 1 MG Q6P PRN 08/05 1100 AC PO Benztropine Mesylate 1 MG Q6P PRN 08/05 1100 AC IM Chlordiazepoxide HCl 25 MG BID 08/09 0900 DC 08/10 PO 08/10 1200 0904 Gabapentin 600 MG 0900,1300 08/08 1300 AC 08/10 PO 1250 Gabapentin 900 MG AT BEDTIME 08/06 2100 AC 08/09 PO 2137 Haloperidol 5 MG Q6P PRN 08/05 1100 AC PO Haloperidol 5 MG Q6P PRN 08/05 1100 AC IM Ibuprofen 600 MG Q6P PRN 08/05 1100 AC 08/07 PO 1224 Levothyroxine Sodium 0.05 MG DAILY AC 08/05 1051 AC 08/10 PO 0630 Lorazepam 0.5 MG ONCE 08/10 0000 DC PO 08/10 0001 Lorazepam 2 MG Q2P PRN 08/05 1100 AC PO Lorazepam 1 MG Q2P PRN 08/05 1100 AC 08/06 PO 1613 Lorazepam 2 MG Q6P PRN 08/05 1100 AC IM Magnesium Hydroxide 30 ML AT BEDTIME NEED.. 08/05 1100 AC PO Multivitamins 1 TAB DAILY 08/05 1048 AC 08/10 PO 0903 Nicotine 2 MG Q2P PRN 08/05 1100 AC 08/10 PO 1557 Tamsulosin HCl 0.4 MG DAILY 08/05 1050 AC 08/10 PO 09
--- NOTE | 2018-08-10 12:03 | SOCIAL WORKER PROG NOTE PSYCH ---
Social Work Progress Note Progress Note Met with Miguelito late this morning. He handed me an application for [employer]. He has a phone screening with Alexandro today at 2pm. Reports his mood was improved over the weekend, but still depressed at times. He talked about the importance of getting into a program and working on obtaining housing after that. He is hoping that he will become eligible for Social Security benefits. Talked about how he has a academic affairs dean that he is working with. Reminded him that people often get denied. Encouraged him to consider [facility] or [facility] as possible options for longer term treatment when he is done with a 30 day program. He didn't seem too open to that idea. Reports he is sleeping and eating well. Occasional thoughts about drinking, that quickly pass. He is struggling more with the idea of wanting a cigarette. He signed a release for [facility], so that I can let them know what his d/c plan entails.
--- NOTE | 2018-08-10 12:44 | SOCIAL WORKER PROG NOTE PSYCH ---
Social Work Progress Note Progress Note Determination Status: PENDED The services requested require additional review. You will be contacted regarding the status of this request if further information is needed. An authorization decision will be made within the required timeframes and details of that decision may be found under the member's authorization history. Member Name Member ID Member Subscriber Name Subscriber ID BONNIE SANCHEZYASOVSZKY [id number] BONNIE SANCHEZYASOVSZKY [id number] Pended Authorization # Client Authorization # Type of Request [id number] CONCURRENT Date of Admission/ Start of Services Requested From Submission Date 08/05/2018 08/08/2018 08/10/2018 Level of Service Type of Service Level of Care Type of Care INPATIENT/[facility] Reason Code P76 Provider Name & Address Provider ID Provider Alternate ID NPI # for Authorization LORI DA SILVA [address] [facility] [id number] N/A
[2018-08-10 12:50] VITALS: BP 113/73
[2018-08-10 16:33] VITALS: BP 129/84
[2018-08-10 19:52] VITALS: BP 132/83
[2018-08-10 19:58] VITALS: BP 132/83
[2018-08-11 07:50] VITALS: BP 109/82
[2018-08-11 07:52] VITALS: BP 109/82
--- NOTE | 2018-08-11 09:11 | CP SOUTH PROGRESS NOTE PSYCH ---
Psych (Inpt) Progress Note Progress Note The patient's progress, treatment plan, and aftercare plans were discussed in the treatment team meeting this morning. Team members included: LCSWs, RNs, OTR/ L, Activities Therapist, and Psychiatrist. Vital Signs Date Time Temp Pulse B/P B/P O2 08/11 0811 95 109/82 08/11 0752 98.9 95 109/82 08/11 0750 98.9 95 109/82 08/10 1958 97.8 92 132/83 08/10 1952 97.8 92 132/ EKG showed pre-mature atrial contractions. Mental State: Miguelito was steady on his feet. He denied chest pain or shortness of breath but reported that sometimes he felt a skipped beat 9in the past not today). He was cooperative, calm, and showed normal psychomotor activity, nNo bizarre behaviors, normal speech, not pressured, not slurred, constricted affect, he reported that he has been in a better mood (yesterday afternoon and today) Miguelito denied thoughts of suicide today, denied violent thoughts or thoughts of homicide. Miguelito denied hallucinations, denied feeling paranoid, there were no delusions during the interview. He was coherent, no thought disorder. He was alert and oriented to place and person, No difficulties with information processing. No evidence of short-term memory impairment. Treatment Plan Update: Discussed abnormalities in the EKG with Miguelito and advised him of a reduction in the amitriptyline and to repeat the EKG tomorrow on the lower dose of amitriptyline which he agreed to: Reduce amitriptyline to 25 MG AT BEDTIME Change Gabapentin to 600 MG @ 0900 & 1200 mg QHS Repeat EKG tomorrow Ibuprofen 600 MG Q6P PRN Levothyroxine 50mcg DAILY AC Aripiprazole 10 MG BID Tamsulosin HCl 0.4 MG DAILY Lorazepam 0.5 MG ONCE 08/10 0000 DC PO 08/10 0001 Lorazepam 2 MG Q2P PRN 08/05 1100 AC PO Lorazepam 1 MG Q2P PRN 08/05 1100 AC 08/06 PO 1613 Lorazepam 2 MG Q6P PRN 08/05 1100 AC IM Magnesium Hydroxide 30 ML AT BEDTIME NEED.. 08/05 1100 AC PO Multivitamins 1 TAB DAILY 08/05 1048 AC 08/10 PO 0903 Nicotine 2 MG Q2P PRN 08/05 1100 AC 08/10 PO 1557 Tamsulosin HCl 0.4 MG DAILY 08/05 1050 AC 08/10 PO 09 DICTATED BY: Ovidio Wise MD DATE/TIME DICTATED:08/10/18813 ASSOCIATE TEAM PHYSICIAN:ZURDO
--- NOTE | 2018-08-11 15:00 | SOCIAL WORKER PROG NOTE PSYCH ---
Social Work Progress Note Progress Note BONNIE SANCHEZOFE [id number] 1960 BONNIE BROOKLYN [id number] Pended Authorization # Client Authorization # Type of Request [id number] CONCURRENT Date of Admission/ Start of Services Requested From Submission Date 08/05/2018 08/11/2018 08/11/2018
--- NOTE | 2018-08-11 17:24 | SOCIAL WORKER PROG NOTE PSYCH ---
Social Work Progress Note Progress Note Miguelito reported that he woke up in a down mood today. Couldn't identify why, but stated he was trying to just work through it and felt better. Shared that [facility] will most likely have a bed for him tomorrow. They were sent PPD results, hx and physical, and recent EKG. Miguelito stated he has to do another EKG tomorrow, so don't know if that peice will hold up the d/c for tomorrow. We talked about his plan after [facility], which continues to be him trying to get his own place. Talked about the benefits of him going to a sober house or longer tx program. He is not thinking about that at this point. He is interested in getting on Antabuse at [facility].
[2018-08-11 19:32] VITALS: BP 127/79
[2018-08-12 07:52] VITALS: BP 123/87
--- NOTE | 2018-08-12 08:09 | CP SOUTH PROGRESS NOTE PSYCH ---
Psych (Inpt) Progress Note Progress Note The patient's progress, treatment plan, and aftercare plans were discussed in the treatment team meeting this morning. Team members included: LCSWs, RNs, OTR/ L, Activities Therapist, and Psychiatrist. Vital Signs: Date Time Temp Pulse B/P B/P Pulse O2 08/12 0802 97.1 92 123/87 08/12 0752 97.1 92 123/87 08/11 1932 97.6 97 127/79 Mental State: Miguelito was alert and oriented to place and person. He was cooperative, calm, and showed normal psychomotor activity. There were no bizarre behaviors, normal speech (not pressured, not slurred) He's showing brighter affect & reported that he's been in a "good" mood. Miguelito denied thoughts of suicide today, and denied violent thoughts or thoughts of homicide. Miguelito denied hallucinations, denied feeling paranoid, there were no delusions during the interview. He was coherent, no thought disorder. He has no difficulties with information processing and no evidence of short-term memory impairment. Treatment Plan Update: Tolerated yesterday's changes very well, denied side effects today. We agreed on the following plan: Continue gabapentin 600 mg in a.m. & 1200 mg QHS Continue Ibuprofen 600 MG Q6P PRN Levothyroxine 50mcg DAILY AC Aripiprazole 10 MG BID Tamsulosin HCl 0.4 MG DAILY
--- NOTE | 2018-08-12 10:45 | Patient Discharge Instructions ---
Psych Discharge Inst General Discharge Information Reason for Admission: wishing Psy Discharge Primary Diag+ MDD Psy Discharge Secondary Diag+ Alcohol Dependence Summary Tests/Major Procedures Lab Cholesterol 220 MG/DL H 07/09/1849 Cholesterol/HDL Ratio 3 % 07/09/1849 HDL Cholesterol 87 mg/dL H 07/09/18948 Hemoglobin A1c 5.0 % 07/09/18948 LDL Cholesterol, Calc 120 mg/dL 07/09/18948 Triglycerides 69 mg/dL 07/09/18948 Studies Pending at DC: None Patient Instructions Contact Information Your Psychiatrist on [facility] was Billie CHRISTIANSON,Ovidio * If you are experiencing an emergency related to this hospitalization, please call [phone] to contact the treating psychiatrist or the psychiatrist-on- call. * To Request a copy of your medical records, please contact the Medical Records Department at [phone]. * To request results of studies pending at the time of discharge, please call [phone]. * Continue your Medications until directed to stop by your Healthcare provider. General Medication Information Please continue to take your new medications and your continued home medications , unless otherwise indicated on your discharge medication list, or unless directed by your MD or DISCHARGE DOOR OPERATOR to stop them. Special Instructions Diet Regular Activity Normal - Tobacco Use Treatment Offered Post DC Medications Offered: Refused Tob Medication Tx Post DC Tobacco Treatment Plan: Refused Tobacco Tx Pgm - EtOH/Drug Use D/O Treatment Offered Post DC Medications Offered: Script Given-See Med List Post DC EtOH/SubAbuse TX Plan: Other SubAbuse/Dual Pgm Metabolic Screening Patient on a neuroleptic(s) . Enter below results for Hemoglobin A1C, and lipid panel if obtained during the last 365 days. BMI: 23.600 Blood Pressure: 105/73 Laboratory Results From [facility] (If applicable): Lab Cholesterol 220 MG/DL H 07/09/1849 Cholesterol/HDL Ratio 3 % 07/09/18948 HDL Cholesterol 87 mg/dL H 07/09/18948 Hemoglobin A1c 5.0 % 07/09/18948 LDL Cholesterol, Calc 120 mg/dL 07/09/1849 Triglycerides 69 mg/dL 07/09/18948 Advance Directives Does the Patient have Medical Advance Directives No/Refused further info Does Pt have Psychiatric Advance Directives? No/Refused further info Information About Psychiatric Advance Directives Provided? Refused Discharge Plan Post Hospital Treatment Plan: Residential Rehab
--- NOTE | 2018-08-12 14:53 | SOCIAL WORKER PROG NOTE PSYCH ---
Social Work Progress Note Progress Note Met with Miguelito this afternoon. He reported he was not having a great day due to his mood being a little on edge/ irritable. He said he got into a verbal conflict with nursing last night about going to AA and he got into an argument with another peer today, because he felt he was picking on other peers. He reports this is not like him. He can't identify what is going on. I told him he is adjusting to life without alcohol and that may have something to do with it. He also said being around others with issues here is contributing to his mood. He said he is happy to hear he is going to [facility] tomorrow. Let him know we will be scheduling his ride with [employer] after team meeting tomorrow. He attempted to call his PO to let her know where he was going. He got her voicemail and left a message.
--- NOTE | 2018-08-12 16:35 | SOCIAL WORKER PROG NOTE PSYCH ---
Social Work Progress Note Progress Note Psychiatric Community Health Worker Note on Behalf of Chantal Baird LCSW On 08.12.18, this copywriter spoke with Ngozi Ngo from [facility] ([phone]) and was notified that the pt has been accepted into the program based on the referral inforamtion faxed and reviewed. Arrangements for the pt to be picked up from on 08.13.18 have been arranged between the hours of 12:00pm-3:00pm per Ngozi; these arragements will be confirmed tomorrow morning. Dr. Hood was notified of the discharge plan and the request for the pts meds to be sent to [facility]([phone]). Olga Cohn (Tish) Psychiatric Community Health Worker
[2018-08-12 19:52] VITALS: BP 113/74
[2018-08-13 07:50] VITALS: BP 105/73
[2018-08-13 07:54] VITALS: BP 105/73
[2018-08-13] MEDS ORDERED: DISULFIRAM250 M1 PO (08:01)
[2018-08-13] MEDS ORDERED: SYNTHROID50 MCG PO (08:01)
[2018-08-13] MEDS ORDERED: TAMSULOSIN HCL0.4 M1 PO (08:01)
--- NOTE | 2018-08-13 08:27 | CP SOUTH PROGRESS NOTE PSYCH ---
Psych (Inpt) Progress Note Progress Note Vital Signs: Date Time Temp Pulse Resp B/P 08/13 0754 96.7 88 18 105/73 08/13 0750 96.7 88 105/73 Mental State: Miguelito was in good humor and looking forward to going to residential rehab today ( [facility]). He was alert and oriented to place and person. He was cooperative, calm, and showed normal psychomotor activity. There were no bizarre behaviors, normal speech (not pressured, not slurred). He's showing brighter affect & reported that he's been in a "good" mood. Miguelito denied thoughts of suicide and denied violent thoughts or thoughts of homicide. Miguelito denied hallucinations, denied feeling paranoid, and there were no observable delusions. He was coherent (i.e. no thought disorder). He has no difficulties with information processing and no evidence of short-term memory impairment. Treatment Plan Update: Discharge to [facility] Tolerated yesterday's changes very well, denied side effects today. We agreed on the following plan: Continue gabapentin 600 mg in a.m. & 1200 mg QHS Continue Ibuprofen 600 mg Q6P PRN Levothyroxine 50mcg DAILY AC Aripiprazole 10 MG BID Tamsulosin 0.4 MG DAILY
[2018-08-13] MEDS ORDERED: GABAPENTIN600 M1 PO ×2 (08:35→11:02)
[2018-08-13] MEDS ORDERED: ABILIFY10 M1 PO ×2 (08:36→11:16)
--- NOTE | 2018-08-13 10:51 | SOCIAL WORKER PROG NOTE PSYCH ---
Social Work Progress Note Progress Note Miguelito reports having a good day so far. He is looking foward to going to [facility] this afternoon. He continues to say that he will complete the 30 day rehab and then get into an apartment. He mentioned that he met a female here on the unit and they are talking about living together. I talked with him yesterday and again today about the risk of developing relationships with people here on the unit. Encouraged him to think about that while he is at [facility] and not leave the program prematurely. He stated he would not leave the program and he is setting out to complete it. He stated he will be going to [facility] after completion. Told him that [facility]'s sprinkler truck driver will be coming to pick him up today between 12-3pm. He seems ready to go. Transportation arrived about 11:40am.
[2018-08-13] MEDS ORDERED: AMITRIPTYLINE H25 M2 PO (11:02)
[2018-08-13] MEDS ORDERED: ARIPIPRAZOLE5 M1 PO (11:16)
--- NOTE | 2018-08-13 12:56 | DISCHARGE SUMMARY REPORT-PSYCH ---
Visit Information Visit Dates/Diagnosis' Admission Date: 08/05/18 Discharge Date: 08/13/18 Reason for Admission: wishing Psy Discharge Primary Diag: MDD Psy Discharge Secondary Diag: Alcohol Dependence Hospital Course Significant Lab Findings: Lab Cholesterol 220 MG/DL H 07/09/18948 Cholesterol/HDL Ratio 3 % 07/09/18948 HDL Cholesterol 87 mg/dL H 07/09/18948 Hemoglobin A1c 5.0 % 07/09/18948 LDL Cholesterol, Calc 120 mg/dL 07/09/18948 Triglycerides 69 mg/dL 07/09/18948 Course Complications: The patient did not have any complications while he was on the inpatient psychiatric unit. Consultations: Patient had an H&P while he was on the inpatient psychiatric uniy Attending Addendum Attending Brief Note Patient seen and examined, saying that he is feeling tired today. He was sleeping but did wake up. 57-year-old male with past medical history significant for hepatitis C, hypothyroidism, pancreatitis, anxiety, depression, alcohol use who was admitted to [facility] with increasing depression and alcohol use suicidal ideation. Vital Signs Date Time Temp Pulse Resp B/P B/P Pulse O2 O2 Flow FiO2 Mean Ox Delivery Rate 08/06 1217 80 126/80 08/06 0959 97 135/86 08/06 0823 96.3 90 127/93 08/06 0814 96.3 90 18 127/93 08/06 0807 96.3 90 127/93 08/06 0551 57 132/87 08/06 0314 52 111/67 08/05 1615 Room Air 08/05 1614 98.3 57 18 136/82 94 Room Air 08/05 1613 98.3 57 18 136/82 08/05 1400 98.2 62 16 132/76 08/05 1400 98.2 62 16 132/76 95 on exam; aox3, nad. cv; s1, s2, rrr resp; clear abd; soft, nt, bs+ ext; no edema Laboratory Tests 08/04 08/04 1611 1609 Chemistry Sodium (137 - 145 mmol/L) 148 H Potassium (3.5 - 5.1 mmol/L) 3.8 Chloride (98 - 107 mmol/L) 113 H Carbon Dioxide (22 - 30 mmol/L) 26 Anion Gap (5 - 16) 9 BUN (9 - 20 mg/dL) 5 L Creatinine (0.7 - 1.2 mg/dL) 0.7 Estimated GFR (>60 ml/min) > 60 BUN/Creatinine Ratio (7 - 25 %) 7.1 Glucose (65 - 99 mg/dL) 103 H Calcium (8.4 - 10.2 mg/dL) 9.2 Total Bilirubin (0.2 - 1.3 mg/dL) 0.5 AST (17 - 59 U/L) 96 H ALT (21 - 72 U/L) 76 H Alkaline Phosphatase (< 127 U/L) 59 Total Protein (6.3 - 8.2 g/dL) 7.1 Albumin (3.5 - 5.0 g/dL) 4.1 Globulin (1.9 - 4.2 gm/dL) 3.0 Albumin/Globulin Ratio (1.1 - 2.2 %) 1.4 Lipase (23 - 300 U/L) 193 TSH &T3 &Free T4 Intrp (0.27 - 4.20 uIU/mL) 0.619 Hematology CBC w Diff NO MAN DIFF REQ WBC (4.8 - 10.8 /CUMM) 5.1 RBC (4.70 - 6.10 /CUMM) 4.61 L Hgb (14.0 - 18.0 G/DL) 15.8 Hct (42 - 52 %) 46.6 MCV (80.0 - 94.0 FL) 101.0 H MCH (27.0 - 31.0 PG) 34.3 H MCHC (33.0 - 37.0 G/DL) 34.0 RDW (11.5 - 14.5 %) 15.7 H Plt Count (130 - 400 /CUMM) 156 MPV (7.4 - 10.4 FL) 7.9 Gran % (42.2 - 75.2 %) 37.8 L Lymphocytes % (20.5 - 51.1 %) 52.5 H Monocytes % (1.7 - 9.3 %) 8.5 Eosinophils % (0 - 5 %) 0.5 Basophils % (0.0 - 2.0 %) 0.7 Absolute Granulocytes (1.4 - 6.5 /CUMM) 1.9 Absolute Lymphocytes (1.2 - 3.4 /CUMM) 2.7 Absolute Monocytes (0.10 - 0.60 /CUMM) 0.4 Absolute Eosinophils (0.0 - 0.7 /CUMM) 0 Absolute Basophils (0.0 - 0.2 /CUMM) 0 Toxicology Urine Opiates Screen (>2000 NG/ML) < 100 Methadone Screen (>300 NG/ML) < 40 Barbiturate Screen (>200 NG/ML) < 60 Ur Phencyclidine Scrn (>25 NG/ML) < 6.00 Amphetamines Screen (>1000 NG/ML) 105 U Benzodiazepines Scrn (>200 NG/ML) < 85 Urine Cocaine Screen (>300 NG/ML) < 50 Urine Cannabis Screen (>50 NG/ML) < 5.00 Serum Alcohol (<10 MG/DL) 373.0 A/P: 57-year-old male with past medical history significant for hepatitis C, hypothyroidism, pancreatitis, anxiety, depression, alcohol use who was admitted to [facility] with increasing depression and alcohol use suicidal ideation. Patient has been started on Ativan. He also has a history of hypothyroidism and his levothyroxine has been continued. He recently had thyroid function testing done and it was normal. The rest of the labs look okay. His vital signs are stable. I will defer the further psychiatric management to the psychiatrist. NOTE ENTERED BY: Sera Carrasco MD DATE/TIME ENTERED:08/06/181325 REPORT NUMBR:[id number] CONFIDENTIAL, DO NOT COPY WITHOUT APPROPRIATE AUTHORIZATION. <Electronically signed by Sera Carrasco MD> 08/06/18 1329 Allergies: Coded Allergies: NO KNOWN ALLERGIES (NONE 01/06/18) Hospital Course/TX Response: 08/06/2018: Initial Impression and Plan: Miguelito is a 57-year-old white male who has been previously and Inpatient Psychiatry 3 times before. Once in 2006 and twice in 2018. His last admission was just last month. He suffers from chronic alcoholism and frequent relapses. He presented after he called children [employer] report and that he was having thoughts of stabbing self. He was intoxicated. He is well known to me and to the staff on Inpatient Psychiatry from 3 previous admissions. Diagnosis(es): Unspecified depressive disorder Alcohol use disorder Cannabis use disorder Opioid use disorder Hepatitis C Hypothyroidism - Initial Tx Plan for Active Psych & Medical Conditions Treatment Plan: Inpatient psychiatric care with safety checks every 15 minutes Alcohol detoxification protocol with Ativan Continue Abilify 10 mg daily Continue gabapentin and other medications as per his last discharge from Inpatient Psychiatry since he has not seen any other psychiatrist for psychiatric nurse practitioner is following his discharge. Nursing assessments and vital signs Biopsychosocial assessment, collateral information, and aftercare planning by [employer] Group therapy, milieu therapy, and activities therapy. 08/07/2018 --- 08/12/2018: Over the next 5 days, the patient was detoxified using Librium and history of Ativan over the next few days. He had an uneventful detoxification/withdrawal from alcohol The patient had an abnormal EKG with premature atrial beats on his amitriptyline dose was lowered to 25 mg from 50 mg. Otherwise there was no significant physical health issues. The patient's EKG was repeated on 08/12/2018 and the premature atrial beats disappeared. So it is possible that the amitriptyline at the higher dose may have been contributing to that. 08/13/2018: Vital Signs: Date Time Temp Pulse Resp B/P 08/13 0754 96.7 88 18 105/73 08/13 0750 96.7 88 105/73 Mental State: Miguelito was in good humor and looking forward to going to residential rehab today ( [facility]). He was alert and oriented to place and person. He was cooperative, calm, and showed normal psychomotor activity. There were no bizarre behaviors, normal speech (not pressured, not slurred). He's showing brighter affect & reported that he's been in a "good" mood. Miguelito denied thoughts of suicide and denied violent thoughts or thoughts of homicide. Miguelito denied hallucinations, denied feeling paranoid, and there were no observable delusions. He was coherent (i.e. no thought disorder). He has no difficulties with information processing and no evidence of short-term memory impairment. Treatment Plan Update: Discharge to [facility] Discharge HBIPS - Tobacco Use Treatment Offered Post DC Medications Offered: Refused Tob Medication Tx Post DC Tobacco Treatment Plan: Refused Tobacco Tx Pgm - EtOH/Drug Use D/O Treatment Offered Post DC Medications Offered: Script Given-See Med List Post DC EtOH/SubAbuse TX Plan: Other SubAbuse/Dual Pgm Metabolic Screening - Screen if on a Neuroleptic Medication - Metabolic screening should include: - Blood Pressure, BMI, Glucose or Hgb A1c, & a - Lipid profile from within the past 365 days. Metabolic Screening Patient on a neuroleptic(s) . Enter below results for Hemoglobin A1C, and lipid panel if obtained during the last 365 days. BMI: 23.600 Blood Pressure: 105/73 Laboratory Results From [facility] (If applicable): Lab Cholesterol 220 MG/DL H 07/09/18948 Cholesterol/HDL Ratio 3 % 07/09/18948 HDL Cholesterol 87 mg/dL H 07/09/18948 Hemoglobin A1c 5.0 % 07/09/18948 LDL Cholesterol, Calc 120 mg/dL 07/09/18948 Triglycerides 69 mg/dL 07/09/18948 Discharge Instructions General Discharge Information Multiple Neuroleptics: Not Applicable Discharge Diet Regular Discharge Activity Normal DC Disposition: Residential Rehab Referrals Ordered Referrals Provider Referral 08/13/18 For Groups: [[facility]] [facility] admission 08/13/[address] [place] [id number] Prescriptions Stop taking the following medications: Aripiprazole (Abilify) 10 MG TABLET ORAL DAILY Qty = 15 Gabapentin (Gabapentin) 300 MG CAPSULE ORAL THREE TIMES DAILY as needed for DEPRESSION/ANXIETY Qty = 60 Amitriptyline HCl (Amitriptyline HCl) 50 MG TABLET ORAL Every night Qty = 15 Continue taking these medications: Tamsulosin HCl (Tamsulosin HCl) 0.4 MG CAP.ER.24H 1 Capsule ORAL DAILY Qty = 30 Comments: Last Taken:08/13/18 Time:8am This prescription has been renewed Levothyroxine Sodium (Synthroid) 50 MCG TABLET 50 Microgram ORAL DAILY Qty = 30 Comments: Last Taken:08/13/18 Time:6am This prescription has been renewed Start taking the following new medications: Gabapentin (Gabapentin) 600 MG TABLET 1 Tablet ORAL SEE INSTRUCTIONS Qty = 90 No Refills Instructions: 1 tablet in AM and 2 tablets at bedtime Comments: Last Taken:08/13/18 Time:8am Aripiprazole (Abilify) 10 MG TABLET 1 Tablet ORAL DAILY Qty = 30 No Refills Comments: Last Taken:08/13/18 Time:8am Disulfiram (Disulfiram) 250 MG TABLET 1 Tablet ORAL DAILY Qty = 30 No Refills Comments: NOT TAKEN IN HOSPITAL Amitriptyline HCl (Amitriptyline HCl) 25 MG TABLET 1 Tablet ORAL AT BEDTIME Qty = 30 No Refills Comments: Last Taken:08/12/18 Time:10pm Aripiprazole (Aripiprazole) 5 MG TABLET 1 Tablet ORAL AT BEDTIME Qty = 30 No Refills Studies Pending at Discharge None [facility]
--- NOTE | 2018-08-13 15:59 | SOCIAL WORKER PROG NOTE PSYCH ---
Social Work Progress Note Faxed Referral(s) Referred To: [facility] Transition of Care Documents sent: Health Summary, W10 Faxed to: [facility] Fax #: [phone] Faxed by: Chantal Baird Date faxed: 08/13/18 Time Faxed: [phone]
== END 2018-08-13 12:00 | DRG 754 ==
LOC: ERH 14:50 → ERHI 08-05 15:45 → CP SOUTH 08-05 15:45 → EDBEDREQ 08-05 16:00 → ENTRNSPT 08-05 16:17 → CP SOUTH 08-05 16:50 → CMPTRNSPT 08-05 16:52 → CP SOUTH 08-06 10:03
PROVIDERS: Student in an Organized Health Care Education/Training Program
DX: F32.9 Major depressive disorder, single episode, unspecified (principal); F10.10 Alcohol abuse, uncomplicated
CPT/HCPCS: 80307; 93005; 93010; G0480; J0401; J0515; J1630; J3490